=== PATIENT | female | born 1945 | race Caucasian/White ===

== ENCOUNTER → 2017-08-06 08:48 | Outpatient (CLI) | payer MEDICARE, SELFPAY ==
[2017-08-06 09:30] LABS: Absolute Lymphocyte Count 1.89 X10^3/ul (0.83-4.51); Absolute Neutrophil Count 4.4 X10^3/uL (2.0-7.7); Basophil# 0.02 X10^3/uL; Basophil% 0.3 % (0-1); Eosinophil# 0.28 X10^3/uL; Eosinophils% 3.8 % (0-5); Hematocrit 40.9 % (37-47); Hemoglobin 12.6 g/dl (12.0-15.0); Lymphocyte # 1.89 X10^3/ul (4.0); Lymphocyte % 25.8 % (19-41); Mean Corp Hgb Conc 30.8 g/gl (32-36); Mean Corpuscular Hgb 27.3 pg (27.0-32.0); Mean Corpuscular Volume 88.5 fL (81-99); Mean Platelet Vol. 9.7 fl (6.2-12.0); Monocyte# 0.78 X10^3/uL; Monocyte% 10.6 % (0-10); Neutrophil # 4.35 X10^3/uL (2.7-7.7); Neutrophil % 59.4 % (47-70); Platelet Count 186 K/mm3 (150-450); RBC Distribution Width CV 13.9 % (11.6-14.6); RBC Distribution Width SD 44.9 fl (35.1-43.9); Red Blood Count 4.62 M/mm3 (4.2-5.4); White Blood Count 7.3 K/mm3 (4.4-11.0)
[2017-08-06 09:33] LABS: POSITIVE COUNT NO; POSITIVE DIFFERENTIAL NO; POSITIVE MORPHOLOGY NO
[2017-08-06 09:43] LABS: Hemoglobin A1c 6.4 % (4.2-6.3)
[2017-08-06 09:55] LABS: AST(SGOT) 43 U/L (15-37); Alanine Aminotransfer ALT/SGPT 25 U/L (13-56); Albumin, Serum 3.7 g/dL (3.2-5.0); Alkaline Phosphatase 100 U/L (45-117); Anion Gap 9 (5-15); BUN 23 mg/dL (7-18); BUN/Creat Ratio 20.9 RATIO (10-20); Calcium,Total 8.8 mg/dL (8.5-10.1); Chloride 102 mmol/L (98-107); EST Glomerular Filtration Rate 52 mL/min (>60); Est Glom Filt Rate - Afr Amer 62 mL/min (>60); Globulin 3.8 g/dL (2.2-4.2); Glucose 117 mg/dL (74-106); Potassium 4.2 mmol/L (3.5-5.1); Protein, Total 7.5 g/dL (6.4-8.2); Sodium Level 138 mmol/L (136-145); Thyroid Stim Hormone (TSH) 2.51 uIU/mL (0.358-3.74)
== END ==
DX: I10 Essential (primary) hypertension (principal); E78.5 Hyperlipidemia, unspecified; E11.9 Type 2 diabetes mellitus without complications
CPT/HCPCS: 36415; 80053; 83036; 84443; 85025

== ENCOUNTER → 2017-11-20 16:48 | Outpatient (CLI) | payer MEDICARE, SELFPAY ==
[2017-11-20 17:47] LABS: Absolute Lymphocyte Count 2.59 X10^3/ul (0.83-4.51); Absolute Neutrophil Count 4.3 X10^3/uL (2.0-7.7); Basophil# 0.03 X10^3/uL; Basophil% 0.4 % (0-1); Eosinophil# 0.44 X10^3/uL; Eosinophils% 5.3 % (0-5); Hematocrit 39.7 % (37-47); Hemoglobin 12.6 g/dl (12.0-15.0); Lymphocyte # 2.59 X10^3/ul (4.0); Lymphocyte % 31.1 % (19-41); Mean Corp Hgb Conc 31.7 g/gl (32-36); Mean Corpuscular Hgb 28.1 pg (27.0-32.0); Mean Corpuscular Volume 88.4 fL (81-99); Mean Platelet Vol. 10.2 fl (6.2-12.0); Monocyte# 0.93 X10^3/uL; Monocyte% 11.2 % (0-10); Neutrophil # 4.33 X10^3/uL (2.7-7.7); Neutrophil % 51.8 % (47-70); Platelet Count 216 K/mm3 (150-450); RBC Distribution Width CV 13.7 % (11.6-14.6); RBC Distribution Width SD 43.7 fl (35.1-43.9); Red Blood Count 4.49 M/mm3 (4.2-5.4); White Blood Count 8.3 K/mm3 (4.4-11.0)
[2017-11-20 17:51] LABS: POSITIVE COUNT NO; POSITIVE DIFFERENTIAL NO; POSITIVE MORPHOLOGY NO
[2017-11-20 18:12] LABS: ALB/GLOB Ratio 0.9 RATIO (0.9-2.4); AST(SGOT) 45 U/L (15-37); Alanine Aminotransfer ALT/SGPT 25 U/L (13-56); Albumin, Serum 3.7 g/dL (3.2-5.0); Alkaline Phosphatase 93 U/L (45-117); Anion Gap 8 (5-15); BUN 25 mg/dL (7-18); BUN/Creat Ratio 20.5 RATIO (10-20); Calcium,Total 9.1 mg/dL (8.5-10.1); Chloride 105 mmol/L (98-107); Cholesterol 153 mg/dL (200); Creatinine, Serum 1.22 mg/dL (0.55-1.02); EST Glomerular Filtration Rate 46 mL/min (>60); Est Glom Filt Rate - Afr Amer 55 mL/min (>60); Globulin 3.9 g/dL (2.2-4.2); Glucose 100 mg/dL (74-106); High Density Lipoprotein 43 mg/dL; Potassium 4.2 mmol/L (3.5-5.1); Protein, Total 7.6 g/dL (6.4-8.2); Sodium Level 139 mmol/L (136-145); Thyroid Stim Hormone (TSH) 1.81 uIU/mL (0.358-3.74); Triglycerides 299 mg/dL; Very Low Density Lipoprotein 60 mg/dL (5-40)
[2017-11-21 08:48] LABS: Vitamin D,25 Hydroxy 33.2 ng/mL (29.95-100.01)
== END ==
PROVIDERS: Visit Provider Family Medicine Geriatric Medicine
DX: E11.9 Type 2 diabetes mellitus without complications (principal); E55.9 Vitamin D deficiency, unspecified; E78.4 Other hyperlipidemia; I10 Essential (primary) hypertension
CPT/HCPCS: 36415; 80053; 80061; 82306; 84443; 85025

== ENCOUNTER → 2017-12-05 10:49 | Outpatient (CLI) | payer MEDICARE, SELFPAY | PROVIDERS: Visit Provider Family Medicine Geriatric Medicine | DX: N39.0 Urinary tract infection, site not specified (principal) | CPT/HCPCS: 87077; 87086; 87088; 87186 ==

== ENCOUNTER → 2018-02-18 14:54 | Outpatient (CLI) | payer MEDICARE, SELFPAY ==
[2018-02-18 16:09] LABS: Absolute Lymphocyte Count 2.16 X10^3/ul (0.83-4.51); Absolute Neutrophil Count 4.6 X10^3/uL (2.0-7.7); Basophil# 0.03 X10^3/uL; Basophil% 0.4 % (0-1); Eosinophil# 0.31 X10^3/uL; Hematocrit 37.3 % (37-47); Hemoglobin 11.4 g/dl (12.0-15.0); Lymphocyte # 2.16 X10^3/ul (4.0); Mean Corp Hgb Conc 30.6 g/gl (32-36); Mean Corpuscular Hgb 27.1 pg (27.0-32.0); Mean Corpuscular Volume 88.8 fL (81-99); Mean Platelet Vol. 9.8 fl (6.2-12.0); Monocyte# 0.67 X10^3/uL; Monocyte% 8.7 % (0-10); Neutrophil # 4.55 X10^3/uL (2.7-7.7); Neutrophil % 58.9 % (47-70); Platelet Count 230 K/mm3 (150-450); RBC Distribution Width CV 13.4 % (11.6-14.6); RBC Distribution Width SD 43.1 fl (35.1-43.9); White Blood Count 7.7 K/mm3 (4.4-11.0)
[2018-02-18 16:39] LABS: ALB/GLOB Ratio 0.8 RATIO (0.9-2.4); AST(SGOT) 42 U/L (15-37); Alanine Aminotransfer ALT/SGPT 25 U/L (13-56); Albumin, Serum 3.4 g/dL (3.2-5.0); Alkaline Phosphatase 94 U/L (45-117); Anion Gap 9 (5-15); BUN 24 mg/dL (7-18); BUN/Creat Ratio 17.8 RATIO (10-20); Calcium,Total 9.2 mg/dL (8.5-10.1); Chloride 101 mmol/L (98-107); Cholesterol 145 mg/dL (200); Creatinine, Serum 1.35 mg/dL (0.55-1.02); EST Glomerular Filtration Rate 41 mL/min (>60); Est Glom Filt Rate - Afr Amer 49 mL/min (>60); Globulin 4.2 g/dL (2.2-4.2); Glucose 113 mg/dL (74-106); High Density Lipoprotein 39 mg/dL; Potassium 4.4 mmol/L (3.5-5.1); Protein, Total 7.6 g/dL (6.4-8.2); Sodium Level 139 mmol/L (136-145); Thyroid Stim Hormone (TSH) 1.87 uIU/mL (0.358-3.74); Triglycerides 327 mg/dL; Very Low Density Lipoprotein 65 mg/dL (5-40)
[2018-02-18 17:16] LABS: POSITIVE COUNT NO; POSITIVE DIFFERENTIAL NO; POSITIVE MORPHOLOGY NO
== END ==
PROVIDERS: Family Provider Family Medicine Geriatric Medicine; PCP Family Medicine Geriatric Medicine; Visit Provider Family Medicine Geriatric Medicine
DX: E11.9 Type 2 diabetes mellitus without complications (principal); E55.9 Vitamin D deficiency, unspecified; E78.4 Other hyperlipidemia; I10 Essential (primary) hypertension
CPT/HCPCS: 36415; 80053; 80061; 82306; 84443; 85025

== ENCOUNTER → 2018-05-14 10:46 | Outpatient (CLI) | payer MEDICARE, SELFPAY ==
[2018-05-14 12:42] LABS: Absolute Lymphocyte Count 1.77 X10^3/ul (0.83-4.51); Absolute Neutrophil Count 2.8 X10^3/uL (2.0-7.7); Basophil# 0.03 X10^3/uL; Basophil% 0.5 % (0-1); Eosinophil# 0.17 X10^3/uL; Eosinophils% 3.1 % (0-5); Hematocrit 37.2 % (37-47); Hemoglobin 11.7 g/dl (12.0-15.0); Lymphocyte # 1.77 X10^3/ul (4.0); Lymphocyte % 32.1 % (19-41); Mean Corp Hgb Conc 31.5 g/gl (32-36); Mean Corpuscular Hgb 27.7 pg (27.0-32.0); Mean Corpuscular Volume 87.9 fL (81-99); Mean Platelet Vol. 10.5 fl (6.2-12.0); Monocyte# 0.71 X10^3/uL; Monocyte% 12.9 % (0-10); Neutrophil # 2.82 X10^3/uL (2.7-7.7); Neutrophil % 51.2 % (47-70); Platelet Count 194 K/mm3 (150-450); RBC Distribution Width CV 13.7 % (11.6-14.6); RBC Distribution Width SD 43.2 fl (35.1-43.9); Red Blood Count 4.23 M/mm3 (4.2-5.4); White Blood Count 5.5 K/mm3 (4.4-11.0)
[2018-05-14 12:46] LABS: POSITIVE COUNT NO; POSITIVE DIFFERENTIAL NO; POSITIVE MORPHOLOGY NO
[2018-05-14 13:07] LABS: Vitamin D,25 Hydroxy 44.1 ng/mL (29.95-100.01)
[2018-05-14 13:12] LABS: AST(SGOT) 48 U/L (15-37); Alanine Aminotransfer ALT/SGPT 29 U/L (13-56); Albumin, Serum 3.6 g/dL (3.2-5.0); Alkaline Phosphatase 97 U/L (45-117); Anion Gap 11 (5-15); BUN 21 mg/dL (7-18); BUN/Creat Ratio 20.4 RATIO (10-20); Calcium,Total 8.7 mg/dL (8.5-10.1); Chloride 106 mmol/L (98-107); Cholesterol 164 mg/dL (200); Creatinine, Serum 1.03 mg/dL (0.55-1.02); EST Glomerular Filtration Rate 56 mL/min (>60); Est Glom Filt Rate - Afr Amer 67 mL/min (>60); Globulin 3.7 g/dL (2.2-4.2); Glucose 116 mg/dL (74-106); High Density Lipoprotein 44 mg/dL; Potassium 4.3 mmol/L (3.5-5.1); Protein, Total 7.3 g/dL (6.4-8.2); Sodium Level 141 mmol/L (136-145); Thyroid Stim Hormone (TSH) 1.84 uIU/mL (0.358-3.74); Triglycerides 321 mg/dL; Very Low Density Lipoprotein 64 mg/dL (5-40)
== END ==
PROVIDERS: Family Provider Family Medicine Geriatric Medicine; PCP Family Medicine Geriatric Medicine; Visit Provider Family Medicine Geriatric Medicine
DX: E11.9 Type 2 diabetes mellitus without complications (principal); E55.9 Vitamin D deficiency, unspecified; E78.49 Other hyperlipidemia; I10 Essential (primary) hypertension
CPT/HCPCS: 36415; 80053; 80061; 82306; 84443; 85025

== ENCOUNTER → 2018-06-25 12:13 | Outpatient (CLI) | payer MEDICARE, SELFPAY ==
--- NOTE | 2018-06-25 | LES_PTH ---
PATIENT: RAMIRO BHAKTA LOC: [facility] U#:[id number] AGE/SX: 79/F ROOM: RE06/25/[address]: Dr. Thomas Castro MD : 1945 BED: DIS: SPEC #: [id number] RECD: 06/25/18 14:41 STATUS: HUSSEIN RESusan #: [id number] DEMETRIA: 06/25/18 00:[address]: Thomas Castro Chi DEPT: SURGICAL PATHOLOGY RECD BY: Tejas Kim ENTERED: 06/25/18 14:42 SP TYPE: Lesion OTHR DR: Thomas Castro MD Tissues: A - Skin of buttock, NOS B - Skin of buttock, NOS Procedures: Surgery Specimen Level IV HEADER OPERATION: Not noted PRE-OP DIAGNOSIS: L98.9 TISSUE SUBMITTED: A - Left lateral buttock, B - Left medial buttock MICROSCOPIC DIAGNOSIS A. 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 See comment. B. Skin lesion of left medial buttocks, excision: Actinic keratosis with moderate atypia, completely excised. AM:anamika 06/26/18 COMMENT A. The lesion measures 11 mm in greatest dimension. MICROSCOPIC DESCRIPTION Slides are reviewed. GROSS DESCRIPTION A - Received in fixative is one container labeled with the patient's name and designated left lateral buttock. The specimen consists of a light bach shave biopsy of skin measuring 1.5 x 1.2 x 0.2 cm. The specimen is inked, serially sectioned and totally submitted in one cassette. B - Received in fixative is one container labeled with the patient's name and designated left medial buttock. The specimen consists of a light bach shave biopsy of skin measuring 0.6 x 0.3 x 0.2 cm. The specimen is inked, bisected and totally submitted in one cassette. / AM:anamika 06/25/18 TC:0 CPT: 19819
== END ==
PROVIDERS: Family Provider Family Medicine Geriatric Medicine; PCP Family Medicine Geriatric Medicine; Visit Provider Family Medicine Geriatric Medicine
DX: L98.9 Disorder of the skin and subcutaneous tissue, unspecified (principal)
CPT/HCPCS: 88305

== ENCOUNTER → 2018-08-12 12:09 | Outpatient (CLI) | payer MEDICARE, SELFPAY ==
[2018-08-12 13:23] LABS: Absolute Lymphocyte Count 2.55 X10^3/ul (0.83-4.51); Absolute Neutrophil Count 4.4 X10^3/uL (2.0-7.7); Basophil# 0.03 X10^3/uL; Basophil% 0.4 % (0-1); Eosinophil# 0.15 X10^3/uL; Eosinophils% 1.9 % (0-5); Hematocrit 37.8 % (37-47); Hemoglobin 11.8 g/dl (12.0-15.0); Lymphocyte # 2.55 X10^3/ul (4.0); Lymphocyte % 32.7 % (19-41); Mean Corp Hgb Conc 31.2 g/gl (32-36); Mean Corpuscular Hgb 27.6 pg (27.0-32.0); Mean Corpuscular Volume 88.5 fL (81-99); Mean Platelet Vol. 9.8 fl (6.2-12.0); Monocyte# 0.63 X10^3/uL; Monocyte% 8.1 % (0-10); Neutrophil # 4.41 X10^3/uL (2.7-7.7); Neutrophil % 56.6 % (47-70); POSITIVE COUNT NO; POSITIVE DIFFERENTIAL NO; POSITIVE MORPHOLOGY NO; Platelet Count 205 K/mm3 (150-450); RBC Distribution Width CV 13.7 % (11.6-14.6); RBC Distribution Width SD 44.3 fl (35.1-43.9); Red Blood Count 4.27 M/mm3 (4.2-5.4); White Blood Count 7.8 K/mm3 (4.4-11.0)
[2018-08-12 13:45] LABS: ALB/GLOB Ratio 0.9 RATIO (0.9-2.4); AST(SGOT) 42 U/L (15-37); Alanine Aminotransfer ALT/SGPT 24 U/L (13-56); Albumin, Serum 3.3 g/dL (3.2-5.0); Alkaline Phosphatase 99 U/L (45-117); Anion Gap 9 (5-15); BUN 22 mg/dL (7-18); BUN/Creat Ratio 19.3 RATIO (10-20); Calcium,Total 8.9 mg/dL (8.5-10.1); Chloride 105 mmol/L (98-107); Cholesterol 151 mg/dL (200); Creatinine, Serum 1.14 mg/dL (0.55-1.02); EST Glomerular Filtration Rate 49 mL/min (>60); Est Glom Filt Rate - Afr Amer 60 mL/min (>60); Globulin 3.7 g/dL (2.2-4.2); Glucose 119 mg/dL (74-106); High Density Lipoprotein 49 mg/dL; Potassium 4.4 mmol/L (3.5-5.1); Sodium Level 143 mmol/L (136-145); Thyroid Stim Hormone (TSH) 1.62 uIU/mL (0.358-3.74); Triglycerides 274 mg/dL; Very Low Density Lipoprotein 55 mg/dL (5-40)
[2018-08-12 14:21] LABS: Vitamin D,25 Hydroxy 53.3 ng/mL (29.95-100.01)
== END ==
PROVIDERS: Family Provider Family Medicine Geriatric Medicine; PCP Family Medicine Geriatric Medicine; Visit Provider Family Medicine Geriatric Medicine
DX: E11.9 Type 2 diabetes mellitus without complications (principal); E55.9 Vitamin D deficiency, unspecified; E78.49 Other hyperlipidemia; I10 Essential (primary) hypertension
CPT/HCPCS: 36415; 80053; 80061; 82306; 84443; 85025

== ENCOUNTER → 2018-11-23 09:01 | Outpatient (CLI) | payer MEDICARE, SELFPAY ==
[2018-11-23 12:40] LABS: Absolute Lymphocyte Count 2.21 X10^3/ul (0.83-4.51); Absolute Neutrophil Count 4.4 X10^3/uL (2.0-7.7); Basophil# 0.02 X10^3/uL; Basophil% 0.3 % (0-1); Eosinophil# 0.22 X10^3/uL; Eosinophils% 2.9 % (0-5); Hematocrit 37.6 % (37-47); Hemoglobin 11.8 g/dl (12.0-15.0); Lymphocyte # 2.21 X10^3/ul (4.0); Lymphocyte % 29.1 % (19-41); Mean Corp Hgb Conc 31.4 g/gl (32-36); Mean Corpuscular Hgb 27.4 pg (27.0-32.0); Mean Corpuscular Volume 87.2 fL (81-99); Mean Platelet Vol. 9.6 fl (6.2-12.0); Monocyte# 0.71 X10^3/uL; Monocyte% 9.4 % (0-10); Neutrophil # 4.41 X10^3/uL (2.7-7.7); Platelet Count 226 K/mm3 (150-450); RBC Distribution Width CV 13.8 % (11.6-14.6); RBC Distribution Width SD 44.1 fl (35.1-43.9); Red Blood Count 4.31 M/mm3 (4.2-5.4); White Blood Count 7.6 K/mm3 (4.4-11.0)
[2018-11-23 12:42] LABS: POSITIVE COUNT NO; POSITIVE DIFFERENTIAL NO; POSITIVE MORPHOLOGY NO
[2018-11-23 12:46] LABS: Vitamin D,25 Hydroxy 43.9 ng/mL (29.95-100.01)
[2018-11-23 12:53] LABS: ALB/GLOB Ratio 0.9 RATIO (0.9-2.4); AST(SGOT) 45 U/L (15-37); Alanine Aminotransfer ALT/SGPT 25 U/L (13-56); Albumin, Serum 3.4 g/dL (3.2-5.0); Alkaline Phosphatase 99 U/L (45-117); Anion Gap 6 (5-15); BUN 23 mg/dL (7-18); BUN/Creat Ratio 19.3 RATIO (10-20); Calcium,Total 9.4 mg/dL (8.5-10.1); Chloride 104 mmol/L (98-107); Cholesterol 152 mg/dL (200); Creatinine, Serum 1.19 mg/dL (0.55-1.02); EST Glomerular Filtration Rate 47 mL/min (>60); Est Glom Filt Rate - Afr Amer 57 mL/min (>60); Globulin 3.9 g/dL (2.2-4.2); Glucose 106 mg/dL (74-106); High Density Lipoprotein 45 mg/dL; Potassium 4.5 mmol/L (3.5-5.1); Protein, Total 7.3 g/dL (6.4-8.2); Sodium Level 139 mmol/L (136-145); Triglycerides 320 mg/dL; Very Low Density Lipoprotein 64 mg/dL (5-40)
--- NOTE | 2018-11-23 14:45 | RAD_ITS ---
STUDY: X-RAY - LUMBAR SPINE REASON FOR EXAM: Female, 73 years old. Pain and swelling TECHNIQUE: 3 view(s) of the lumbar spine were obtained. COMPARISON: None FINDINGS: Normal lumbar lordosis. There is no substantial scoliosis. There is a normal alignment of the vertebrae from L1 L4. There is a grade 1 spondylolisthesis at L4-5, and L5 and S1 align anatomically.. There is multilevel endplate spondylosis of the lumbar vertebrae. There is multi-level degenerative disc disease with multi-level disc space narrowing. There is no demonstrated fracture. There is atherosclerotic calcification of the abdominal aorta without a demonstrated aneurysm. RAD/Lumbar Spine 2 or 3 Views IMPRESSION: Degenerative changes of the spine, as detailed above. No demonstrated fracture, grade 1 spondylolisthesis at L4-5 Electronically Signed: Michel Gillette MD at 15:46 EDT , Service support ,
--- NOTE | 2018-11-23 15:03 | RAD_ITS ---
STUDY: X-RAY - CERVICAL SPINE REASON FOR EXAM: Female, 73 years old. Neck pain after a fall TECHNIQUE: 3 view(s) of the cervical spine were obtained. COMPARISON: None FINDINGS: Normal anterior atlantoaxial articulation. Normal odontoid process. There is straightening of the normal cervical lordosis. There is multi-level endplate spondylosis. There is multi-level degenerative disc disease with multilevel disc space narrowing. The soft tissue structures are unremarkable. RAD/Cerv Spine 2 or 3 Views IMPRESSION: Multilevel degenerative changes, no acute findings Electronically Signed: Michel Gillette MD at 15:47 EDT , Service support ,
== END ==
LOC: POLAB3 09:02 → RAD 14:43
PROVIDERS: Family Provider Family Medicine Geriatric Medicine; PCP Family Medicine Geriatric Medicine; Referring Provider Family Medicine Geriatric Medicine; Visit Provider Family Medicine Geriatric Medicine
DX: M54.5 Low back pain (principal); M54.2 Cervicalgia; E11.9 Type 2 diabetes mellitus without complications; E55.9 Vitamin D deficiency, unspecified; E78.5 Hyperlipidemia, unspecified; I10 Essential (primary) hypertension
CPT/HCPCS: 36415; 72040; 72100; 80053; 80061; 82306; 84443; 85025

== ENCOUNTER → 2018-12-31 16:40 | Outpatient (CLI) | payer MEDICARE, SELFPAY ==
[2018-12-31 17:02] LABS: Absolute Lymphocyte Count 1.78 X10^3/uL (0.83-4.51); Absolute Neutrophil Count 5.9 X10^3/uL (2.0-7.7); Basophil# 0.03 X10^3/uL; Basophil% 0.3 % (0-1); Eosinophil# 0.32 X10^3/uL; Eosinophils% 3.6 % (0-5); Hemoglobin 10.8 g/dL (12.0-15.0); Lymphocyte # 1.78 X10^3/ul (4.0); Lymphocyte % 19.8 % (19-41); Mean Corp Hgb Conc 31.8 g/dL (32-36); Mean Corpuscular Hgb 27.8 pg (27.0-32.0); Mean Corpuscular Volume 87.4 fL (81-99); Mean Platelet Vol. 9.9 fl (6.2-12.0); Monocyte# 0.87 X10^3/uL; Monocyte% 9.7 % (0-10); NRBC Flagged by Analyzer 0 % (0-5); Neutrophil # 5.94 X10^3/uL (2.7-7.7); Platelet Count 174 K/mm3 (150-450); RBC Distribution Width CV 13.4 % (11.6-14.6); Red Blood Count 3.89 M/mm3 (4.2-5.4)
[2018-12-31 17:21] LABS: Erythrocyte Sedimentation Rate 50 mm/hr (0-30)
[2018-12-31 17:45] LABS: Anion Gap 11 (5-15); BUN 34 mg/dL (7-18); BUN/Creat Ratio 17.3 RATIO (10-20); Calcium,Total 8.6 mg/dL (8.5-10.1); Chloride 106 mmol/L (98-107); Creatinine, Serum 1.97 mg/dL (0.55-1.02); EST Glomerular Filtration Rate 26 mL/min (>60); Est Glom Filt Rate - Afr Amer 32 mL/min (>60); Glucose 134 mg/dL (74-106); Potassium 4.1 mmol/L (3.5-5.1); Sodium Level 142 mmol/L (136-145); Uric Acid 11.1 mg/dL (2.6-6.0)
== END ==
PROVIDERS: Family Provider Family Medicine Geriatric Medicine; PCP Family Medicine Geriatric Medicine; Visit Provider Family Medicine Geriatric Medicine
DX: M10.9 Gout, unspecified (principal)
CPT/HCPCS: 36415; 80048; 84550; 85025; 85652; 86140

== ENCOUNTER → 2019-01-06 14:16 | Outpatient (CLI) | payer MEDICARE, SELFPAY ==
--- NOTE | 2019-01-06 14:19 | RAD_ITS ---
STUDY: X-RAY - LEFT HAND REASON FOR EXAM: Arthritis pain. TECHNIQUE: 3 view(s) of the hand. COMPARISON: None. FINDINGS: Normal radiocarpal articulation. Normal distal radioulnar joint. Normal visualized carpal bones. Normal carpal articulations Normal carpometacarpal articulation of the thumb. Normal second through fifth carpometacarpal joints. Normal metacarpi. Normal metacarpophalangeal joint of the thumb. Normal interphalangeal joint of the thumb. Normal proximal and distal phalanges of the thumb. There is mild joint space narrowing of the third metacarpophalangeal joint. There is joint space narrowing of the proximal and distal interphalangeal joints with small marginal osteophytes of the second and third distal interphalangeal joints. Normal phalanges of the second through fifth fingers. There is chondrocalcinosis of the triangular fibrocartilage and lunotriquetral ligament. 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 Chondrocalcinosis. Electronically Signed: Dawson Ivan MD at 15:33 EDT Tel , Service support ,
--- NOTE | 2019-01-06 14:19 | RAD_ITS ---
STUDY: X-RAY - RIGHT HAND REASON FOR EXAM: Arthritis pain. TECHNIQUE: 3 view(s) of the hand. COMPARISON: None. FINDINGS: Normal radiocarpal articulation. Normal distal radioulnar joint. Normal visualized carpal bones. Normal carpal articulations Normal carpometacarpal articulation of the thumb. Normal second through fifth carpometacarpal joints. Normal metacarpi. Normal metacarpophalangeal joint of the thumb. Normal interphalangeal joint of the thumb. Normal proximal and distal phalanges of the thumb. There is moderate joint space narrowing of the third metacarpophalangeal joint. There is joint space narrowing of the proximal and distal interphalangeal joints of the second through fifth fingers. Normal phalanges of the second through fifth fingers. There is chondrocalcinosis of the wrist. 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 Chondrocalcinosis. Electronically Signed: Dawson Ivan MD at 15:31 EDT Tel , Service support ,
== END ==
PROVIDERS: Family Provider Family Medicine Geriatric Medicine; PCP Family Medicine Geriatric Medicine; Referring Provider Family Medicine Geriatric Medicine; Visit Provider Family Medicine Geriatric Medicine
DX: M19.042 Primary osteoarthritis, left hand (principal); M19.041 Primary osteoarthritis, right hand; M11.242 Other chondrocalcinosis, left hand; M11.241 Other chondrocalcinosis, right hand
CPT/HCPCS: 73130

== ENCOUNTER → 2019-01-08 09:52 | Outpatient (CLI) | payer MEDICARE, SELFPAY ==
[2019-01-08 10:27] LABS: Anion Gap 4 (5-15); BUN 24 mg/dL (7-18); Chloride 104 mmol/L (98-107); Creatinine, Serum 1.33 mg/dL (0.55-1.02); EST Glomerular Filtration Rate 41 mL/min (>60); Est Glom Filt Rate - Afr Amer 50 mL/min (>60); Glucose 200 mg/dL (74-106); Potassium 4.3 mmol/L (3.5-5.1); Sodium Level 139 mmol/L (136-145)
== END ==
PROVIDERS: Family Provider Family Medicine Geriatric Medicine; PCP Family Medicine Geriatric Medicine; Visit Provider Family Medicine Geriatric Medicine
DX: N17.9 Acute kidney failure, unspecified (principal)
CPT/HCPCS: 36415; 80048

== ENCOUNTER → 2019-02-17 11:29 | Outpatient (CLI) | payer MEDICARE, SELFPAY ==
[2019-02-17 12:33] LABS: Erythrocyte Sedimentation Rate 20 mm/hr (0-30)
[2019-02-17 12:35] LABS: Absolute Lymphocyte Count 1.96 X10^3/uL (0.83-4.51); Absolute Neutrophil Count 3.9 X10^3/uL (2.0-7.7); Basophil# 0.05 X10^3/uL; Basophil% 0.7 % (0-1); Eosinophils% 4.3 % (0-5); Hematocrit 37.3 % (37-47); Hemoglobin 11.7 g/dL (12.0-15.0); Lymphocyte # 1.96 X10^3/ul (4.0); Mean Corp Hgb Conc 31.4 g/dL (32-36); Mean Corpuscular Volume 89.2 fL (81-99); Mean Platelet Vol. 10.5 fl (6.2-12.0); Monocyte# 0.72 X10^3/uL; Monocyte% 10.3 % (0-10); NRBC Flagged by Analyzer 0 % (0-5); Neutrophil # 3.94 X10^3/uL (2.7-7.7); Neutrophil % 56.4 % (47-70); Platelet Count 182 K/mm3 (150-450); RBC Distribution Width CV 15.4 % (11.6-14.6); RBC Distribution Width SD 49.9 fl (35.1-43.9); Red Blood Count 4.18 M/mm3 (4.2-5.4)
[2019-02-17 13:09] LABS: ALB/GLOB Ratio 0.9 RATIO (0.9-2.4); AST(SGOT) 42 U/L (15-37); Alanine Aminotransfer ALT/SGPT 21 U/L (13-56); Albumin, Serum 3.4 g/dL (3.2-5.0); Alkaline Phosphatase 94 U/L (45-117); Anion Gap 7 (5-15); BUN 26 mg/dL (7-18); BUN/Creat Ratio 23.4 RATIO (10-20); CRP < 2.90 mg/L (0.0-3.0); Calcium,Total 9.2 mg/dL (8.5-10.1); Chloride 104 mmol/L (98-107); Creatinine, Serum 1.11 mg/dL (0.55-1.02); EST Glomerular Filtration Rate 51 mL/min (>60); Est Glom Filt Rate - Afr Amer 62 mL/min (>60); Globulin 3.6 g/dL (2.2-4.2); Glucose 138 mg/dL (74-106); Potassium 4.6 mmol/L (3.5-5.1); Rheumatoid Factor < 10.0 IU/mL (<15); Sodium Level 140 mmol/L (136-145); Uric Acid 5.8 mg/dL (2.6-6.0)
[2019-02-17 13:52] LABS: Hepatitis B Surface Antibody Reactive; Hepatitis B Surface Antigen Non-Reactive (Nonreactive); Hepatitis C Antibody Non-Reactive (Nonreactive)
[2019-02-18 14:58] LABS: ANTINUCLEAR ANTIBODIES DIRECT Negative (Negative)
[2019-02-21 13:42] LABS: CCP IgG Antibodies 8 units (0-19); Hepatitis B Core AB IgM Negative (Negative)
== END ==
PROVIDERS: Family Provider Family Medicine Geriatric Medicine; PCP Family Medicine Geriatric Medicine; Referring Provider Internal Medicine Rheumatology; Visit Provider Internal Medicine Rheumatology
DX: M06.4 Inflammatory polyarthropathy (principal); M79.7 Fibromyalgia; M19.041 Primary osteoarthritis, right hand; M19.042 Primary osteoarthritis, left hand; M10.9 Gout, unspecified; M17.0 Bilateral primary osteoarthritis of knee; M47.897 Other spondylosis, lumbosacral region; Z96.653 Presence of artificial knee joint, bilateral
CPT/HCPCS: 36415; 80053; 84550; 85025; 85652; 86038; 86140; 86200; 86431; 86705; 86706; 86803; 87340

== ENCOUNTER → 2019-03-19 07:56 | Outpatient (CLI) | payer MEDICARE, SELFPAY ==
--- NOTE | 2019-03-19 07:59 | US_ITS ---
STUDY: ABDOMINAL ULTRASOUND - RIGHT UPPER QUADRANT REASON FOR VISIT: Female, 73 years old elevated LFTs TECHNIQUE: Ultrasound evaluation of the right upper quadrant was performed with real-time and static lopes-scale imaging. TECHNICAL QUALITY: Adequate. COMPARISON: None. FINDINGS: Liver: The liver measures 15.7 cm. There is normal echogenicity of the liver. The bile ducts are within normal limits. There is hepatic color flow. The direction of portal flow is hepatopetal. There is no demonstrated mass lesion. Gallbladder: Normal distended gallbladder. The gallbladder wall measures 1.4 mm. There is a negative sonographic Zamora's sign. There is no pericholecystic fluid. There is an echogenic mass within the gallbladder demonstrating internal blood flow measuring 3.2 x 1.8 x 1.7 cm. Common Bile Duct (C.B.D.): The common bile duct measures 9.1 mm. Pancreas: Normal size of the head, body and tail of the pancreas. There is normal echogenicity of the pancreas. There is no demonstrated pancreatic mass or cyst. Right Kidney: Normal size of the right kidney. The right kidney measures 11.3 x 5.2 x 5.1 cm. Normal renal cortex. The right cortex measures 1.4 cm. There are 2 right renal cysts measuring 1.4 x 1.3 x 1.2 cm and 1.6 x 1.5 x 1.4 cm respectively. There is no right hydronephrosis. US/Liver IMPRESSION: 1. Echogenic mass with internal vascularity within the gallbladder measuring 3.2 x 1.8 x 1.7 cm. Malignancy should be considered. 2. Dilatation of the CBD measuring up to 9.1 mm. 3. There are 2 right renal cysts measuring 1.4 x 1.3 x 1.2 cm and 1.6 x 1.5 x 1.4 cm respectively. Electronically Signed: Saul Salmon MD at 23:23 EDT , Service support ,
== END ==
PROVIDERS: Family Provider Family Medicine Geriatric Medicine; PCP Family Medicine Geriatric Medicine; Referring Provider Internal Medicine Rheumatology; Visit Provider Internal Medicine Rheumatology
DX: M06.4 Inflammatory polyarthropathy (principal); M79.7 Fibromyalgia; M19.041 Primary osteoarthritis, right hand; M10.9 Gout, unspecified; M17.0 Bilateral primary osteoarthritis of knee; M47.897 Other spondylosis, lumbosacral region; K21.9 Gastro-esophageal reflux disease without esophagitis; E11.9 Type 2 diabetes mellitus without complications; I10 Essential (primary) hypertension; E78.5 Hyperlipidemia, unspecified
CPT/HCPCS: 76705

== ENCOUNTER → 2019-04-05 10:27 | Outpatient (CLI) | payer MEDICARE, SELFPAY ==
[2019-04-05 12:07] LABS: Albumin, Serum 3.5 g/dL (3.2-5.0); BUN 16 mg/dL (7-18); BUN/Creat Ratio 15.1 RATIO (10-20); Creatinine, Serum 1.06 mg/dL (0.55-1.02); EST Glomerular Filtration Rate 54 mL/min (>60); Est Glom Filt Rate - Afr Amer 65 mL/min (>60); Globulin 3.5 g/dL (2.2-4.2); Glucose 179 mg/dL (74-106)
[2019-04-05 12:08] LABS: AST(SGOT) 74 U/L (15-37); Alanine Aminotransfer ALT/SGPT 53 U/L (13-56); Alkaline Phosphatase 115 U/L (45-117); Anion Gap 7 (5-15); Calcium,Total 9.4 mg/dL (8.5-10.1); Chloride 106 mmol/L (98-107); Potassium 4.1 mmol/L (3.5-5.1); Sodium Level 141 mmol/L (136-145)
== END ==
PROVIDERS: Family Provider Family Medicine Geriatric Medicine; PCP Family Medicine Geriatric Medicine; Referring Provider Internal Medicine Rheumatology; Visit Provider Internal Medicine Rheumatology
DX: M06.4 Inflammatory polyarthropathy (principal); M79.7 Fibromyalgia; M19.041 Primary osteoarthritis, right hand; M10.9 Gout, unspecified; M17.0 Bilateral primary osteoarthritis of knee; M47.897 Other spondylosis, lumbosacral region; K21.9 Gastro-esophageal reflux disease without esophagitis
CPT/HCPCS: 36415; 80053

== ENCOUNTER → 2019-05-24 16:03 | Outpatient (CLI) | payer MEDICARE, SELFPAY ==
[2019-05-24 17:32] LABS: Absolute Lymphocyte Count 2.27 X10^3/uL (0.83-4.51); Absolute Neutrophil Count 5.2 X10^3/uL (2.0-7.7); Basophil# 0.04 X10^3/uL; Basophil% 0.5 % (0-1); Eosinophil# 0.19 X10^3/uL; Eosinophils% 2.2 % (0-5); Hematocrit 40.1 % (37-47); Hemoglobin 12.2 g/dL (12.0-15.0); Lymphocyte # 2.27 X10^3/ul (4.0); Lymphocyte % 26.5 % (19-41); Mean Corp Hgb Conc 30.4 g/dL (32-36); Mean Corpuscular Hgb 27.5 pg (27.0-32.0); Mean Corpuscular Volume 90.3 fL (81-99); Mean Platelet Vol. 11.4 fl (6.2-12.0); Monocyte# 0.85 X10^3/uL; Monocyte% 9.9 % (0-10); NRBC Flagged by Analyzer 0 % (0-5); Neutrophil # 5.16 X10^3/uL (2.7-7.7); Neutrophil % 60.3 % (47-70); Platelet Count 214 K/mm3 (150-450); RBC Distribution Width CV 14.6 % (11.6-14.6); Red Blood Count 4.44 M/mm3 (4.2-5.4); White Blood Count 8.6 K/mm3 (4.4-11.0)
[2019-05-24 18:06] LABS: Vitamin D,25 Hydroxy 32.1 ng/mL (29.95-100.01)
[2019-05-24 18:13] LABS: AST(SGOT) 57 U/L (15-37); Alanine Aminotransfer ALT/SGPT 41 U/L (13-56); Albumin, Serum 3.4 g/dL (3.2-5.0); Alkaline Phosphatase 130 U/L (45-117); Anion Gap 7 (5-15); BUN 29 mg/dL (7-18); BUN/Creat Ratio 24.8 RATIO (10-20); Calcium,Total 8.3 mg/dL (8.5-10.1); Chloride 106 mmol/L (98-107); Cholesterol 157 mg/dL (200); Creatinine, Serum 1.17 mg/dL (0.55-1.02); EST Glomerular Filtration Rate 48 mL/min (>60); Est Glom Filt Rate - Afr Amer 58 mL/min (>60); Globulin 3.4 g/dL (2.2-4.2); Glucose 138 mg/dL (74-106); High Density Lipoprotein 43 mg/dL; Potassium 4.5 mmol/L (3.5-5.1); Protein, Total 6.8 g/dL (6.4-8.2); Sodium Level 139 mmol/L (136-145); Thyroid Stim Hormone (TSH) 1.49 uIU/mL (0.358-3.74); Triglycerides 428 mg/dL
== END ==
PROVIDERS: Family Provider Family Medicine Geriatric Medicine; PCP Family Medicine Geriatric Medicine; Visit Provider Family Medicine Geriatric Medicine
DX: E11.9 Type 2 diabetes mellitus without complications (principal); E55.9 Vitamin D deficiency, unspecified; E78.5 Hyperlipidemia, unspecified; I10 Essential (primary) hypertension
CPT/HCPCS: 36415; 80053; 80061; 82306; 84443; 85025

== ENCOUNTER 2019-06-22 07:44 | Emergency (ER) | payer MEDICARE, SELFPAY ==
[2019-06-22] VITALS (9 sets, daily range): BP systolic 89–108; BP diastolic 42–75; PULSE 77–88; RESP 18–30; TEMP 36.8–37.1; O2SAT 94–98; BMI 39.9
--- NOTE | 2019-06-22 08:00 | ED.VISSUMM ---
- ER Visit Summary Date of Service: 06/22/19 Chief Complaint: Chills, sweating and diarrhea History of Present Illness: The patient is a 73 F that is post open cholecystectomy and partial liver resection due to a mass at this time uncertain etiology at the [facility] last week. She was admitted on Friday and discharged on . She started having diarrhea in the last 3 to 4 days. Increased amounts greater than 10 episodes yesterday and today. No melena. No fever. No dysuria. Physical Examination: Older female initial blood pressure 97/42. Pulse ox 94% on room air no signs hypoxia. Clinically she looks dehydrated with dry mucous membranes. H EENT exam dry extremities. Neck nontender no lymphadenopathy. Lungs clear to auscultation bilaterally. Heart regular rhythm no murmur. Abdomen soft. Mildly tender she is a large well-healing open liver and cholecystectomy incision. Right upper quadrant across the abdomen. There is no signs of infection. The wound is closed. There is no cellulitis. No peritoneal signs. Patient is moving all 4 extremities. Calves are nontender without edema or cords. Neurologically she is awake alert with no focal motor deficits. Skin the patient was diaphoretic prior to arrival. Neurologically she is awake alert with no focal motor deficits. Test Results: X-ray portable 1 view shows elevated right hemidiaphragm otherwise unremarkable. No infiltrate. Read both by myself and radiologist. EKG shows normal sinus rhythm rate 81 with no acute signs of PA or ischemia. No dysrhythmia. CBC shows an elevated white count of 22,400. 94 segs no bands. Hemoglobin 9.5 she just had surgery with partial resection of her liver I suspect this was her recent hemoglobins when she left the [facility] after the surgery. I do not have any labs available for comparison as of yet. Chemistries unremarkable albumin BUN 24 and creatinine 1.58 consistent with dehydration and acute kidney injury. Liver enzymes are elevated again she had recent liver partial resection. Lactic acid is elevated at 4.0 consistent with septic shock. C. difficile is pending she has not had a bowel movement as of yet. Blood cultures and urine cultures are pending. UA is currently pending. CT abdomen pelvis with IV contrast contrast was also done prior to transfer the clinic which showed both a gallbladder fossa and subphrenic abscesses 4 x 6 cm and 4 x 7 cm. Which I will relate to the [facility] copy editor. Emergency Department Course and Treatment: Patient treated with a liter normal saline due to her hypotension. Screening labs will be obtained. C. difficile will be obtained due to her diarrhea. Patient was started on a second liter normal saline.. The first was almost finished and her blood pressure was in the 80s systolically. She will also be started on Zosyn IV and vancomycin po for septic shock and possible C. difficile.. Currently we do not have a source. My other concern is could this be secondary to C. difficile and dehydration. We do not have a stool sample as of yet. I spoke to [facility] transfer line and the surgical ICU attending. Patient has had 2 L of IV fluids. She will receive a third. She is responding to fluids and currently her blood pressure is in the mid 90s. Give the patient oral bank instead of IV in case this is C. difficile. Also they requested that obtain a CAT scan of the abdomen and pelvis due to recent surgery to rule out a possible abscess. That is been ordered. Treatment Plan: Continue IV fluids. Start IV antibiotics. I very spoken the [facility] she will be admitted there to the surgical intensive care unit. Disposition: Transfer to [facility] for admission postoperatively. Impression: Acute septic shock Acute subphrenic and gallbladder fossa postop abscess Acute hypotension Acute kidney injury Acute diarrhea rule out possible C. difficile Status post open Cholecystectomy and partial liver resection due to liver mass This note was generated with I-DIS[employer] dictation software. It may contain incorrect words, spelling, and punctuation that were not noted in review of the chart prior to signing ED Disposition - Plan for ED Patient: Disposition: [facility] - Main Referrals: Thomas Castro Chi, MD [Primary Care Provider] -
--- NOTE | 2019-06-22 08:10 | RAD_ITS ---
STUDY: X-RAY CHEST REASON FOR EXAM: Female, 73 years old. OPEN ARCADIO 8 DAYS AGO, N/V, WEAKNESS, DIZZINESS, WATERY STOOLS, DIAPHORESIS SINCE FRIDAY TECHNIQUE: Single AP portable view of the chest. COMPARISON: None. FINDINGS: The lungs are clear and expanded. Elevated right hemidiaphragm. Normal size heart. Normal mediastinum and grupo. Normal visualized pulmonary arteries. Normal visualized aortic arch and descending thoracic aorta. Normal visualized thoracic spine. Normal visualized ribs, clavicles, and shoulders. There is no demonstrated abnormality of the visualized soft tissue structures of the upper abdomen. RAD/Chest 1 View (Portable) IMPRESSION: No active disease. Electronically Signed: Myles Barboza MD at 8:28 EST Tel , Service support ,
[2019-06-22 08:19] LABS: Absolute Lymphocyte Count 0.69 X10^3/uL (0.83-4.51); Absolute Neutrophil Count 21.2 X10^3/uL (2.0-7.7); Basophil# 0.07 X10^3/uL; Basophil% 0.3 % (0-1); Eosinophil# 0.02 X10^3/uL; Eosinophils% 0.1 % (0-5); Hemoglobin 9.5 g/dL (12.0-15.0); Lymphocyte # 0.69 X10^3/ul (4.0); Lymphocyte % 3.1 % (19-41); Mean Corp Hgb Conc 31.7 g/dL (32-36); Mean Corpuscular Volume 88.5 fL (81-99); Mean Platelet Vol. 10.4 fl (6.2-12.0); Monocyte% 0.4 % (0-10); NRBC Flagged by Analyzer 0 % (0-5); Neutrophil % 94.8 % (47-70); POSITIVE DIFFERENTIAL YES; Platelet Count 237 K/mm3 (150-450); RBC Distribution Width CV 15.9 % (11.6-14.6); RBC Distribution Width SD 51.8 fl (35.1-43.9); Red Blood Count 3.39 M/mm3 (4.2-5.4); White Blood Count 22.4 K/mm3 (4.4-11.0)
[2019-06-22 08:22] LABS: Differential Indicated SCAN CRITERIA MET
[2019-06-22] MEDS: Ondansetron 4 MG/2 ML Vial IV (08:25)
[2019-06-22] MEDS: 0.9% Normal Saline 1,000 ML 1000 ML IV (08:25)
[2019-06-22 08:35] LABS: AST(SGOT) 199 U/L (15-37); Alanine Aminotransfer ALT/SGPT 142 U/L (13-56); Albumin, Serum 1.8 g/dL (3.2-5.0); Alkaline Phosphatase 454 U/L (45-117); Anion Gap 11 (5-15); BUN 24 mg/dL (7-18); BUN/Creat Ratio 15.2 RATIO (10-20); Bilirubin, Direct 0.67 mg/dL (0.00-0.30); Calcium,Total 8.4 mg/dL (8.5-10.1); Chloride 99 mmol/L (98-107); Creatinine, Serum 1.58 mg/dL (0.55-1.02); EST Glomerular Filtration Rate 34 mL/min (>60); Est Glom Filt Rate - Afr Amer 41 mL/min (>60); Estimated Creatinine Clearance 26.57 ml/min; Globulin 4.2 g/dL (2.2-4.2); Glucose 133 mg/dL (74-106); Potassium 3.8 mmol/L (3.5-5.1); Sodium Level 133 mmol/L (136-145)
[2019-06-22 08:45] LABS: Differential Comment SCANNED; Red Cell Morphology NORM C+C NORMAL (NORM C&C)
--- NOTE | 2019-06-22 08:48 | ED.RN ---
lactic of 4.0. dr beebe notified at this time.
--- NOTE | 2019-06-22 08:57 | EKG12_ITS ---
Test Reason : Blood Pressure : / mmHG Vent. Rate : 081 BPM Atrial Rate : 081 BPM P-R Int : 158 ms QRS Dur : 076 ms QT Int : 392 ms P-R-T Axes : 040 035 045 degrees QTc Int : 455 ms Normal sinus rhythm Normal ECG Confirmed by RADHA BANKS ([id number]), telegraph editor TOM MEJIA ([id number]) on 06/24/2019 10:20:02 AM Referred By: GRACIELA Confirmed By:RADHA BANKS
--- NOTE | 2019-06-22 08:59 | NURSING ---
NO OLD EKGS
--- NOTE | 2019-06-22 09:09 | NURSING ---
CALLED [facility], TALKED TO ANTOLIN IN TRANSFER LINE FAXED FACESHEET
[2019-06-22] MEDS: 0.9% Normal Saline 1,000 ML 999 ML IV ×2 (09:30→10:31)
--- NOTE | 2019-06-22 09:36 | NURSING ---
PATIENT ACCEPTED AND WAITING ON ROOM
[2019-06-22 09:49] LABS: Color, Urine Yellow (Yellow); Glucose, Dipstick Normal (Normal); Ketone-Dipstick 5 mg/dl (Negative); Leukocyte Esterase-Dipstick 25 /ul (Negative); Nitrite-Dipstick Negative (Negative); Occult Blood-Urine Negative /ul (Negative); Protein-Dipstick 30 mg/dl (Negative); Urine Bilirubin Dipstick 1 mg/dL (Negative); Urine Clarity Sl. Cloudy (Clear); Urine Urobilinogen 1 mg/dl (Normal)
--- NOTE | 2019-06-22 09:57 | CT_ITS ---
We are attempting to reach an attending provider to discuss findings. An addendum with communication details will be sent when the communication is complete. STUDY: CT ABDOMEN AND PELVIS WITH CONTRAST REASON FOR EXAM: Female, 73 years old. OPEN ARCADIO and amp; PARTIAL LIVER RESECTION 8 DAYS AGO, WEAKNESS, DIZZINESS, DIARRHEA SINCE SURG -- HX-DIAB,HTN,STAGE 3 CKD RADIATION DOSAGE (If Supplied By Facility): CTDIvol = ( 17.03 ) mGy, DLP = ( 1246.06 ) mGycm TECHNIQUE: Transaxial images were obtained from the dome of the diaphragm to the symphysis pubis without oral contrast. IV 100mL Isovue-300 was administered. Sagittal and coronal images were reconstructed. Individualized dose optimization techniques were used for this CT. COMPARISON: None. FINDINGS: Some right lower lobe atelectasis. The visualized portions of the heart are within normal limits. Some reactive edema of the anterior segment the right lobe of the liver. The patient is status post cholecystectomy. In the gallbladder fossa there is a 4 x 6 cm collection of fluid and gas which extends superiorly along the anterior margin the right lobe of the liver and into the subphrenic space where there is a 4 x 7 cm fluid collection with an air-fluid level all consistent with abscess. Normal spleen. Normal pancreas. Normal bilateral adrenal glands. Nonrotated right kidney which is normal variant. Normal left kidney. Normal visualized stomach. Normal small intestine. Normal colon. The appendix is visualized and appears normal. There is diffuse atherosclerotic calcification of the abdominal aorta, without a demonstrated aneurysm. Normal inferior vena cava. Normal retroperitoneum. Singer catheter within the bladder. Normal abdominal wall. There are diffuse degenerative changes of the visualized lumbar spine. CT/Abdomen/Pelvis W IV Cont ONLY IMPRESSION: Status post recent cholecystectomy with a 4 x 6 cm abscess in the gallbladder fossa which continues superiorly and is contiguous with a 4 x 7 cm right subphrenic abscess. Electronically Signed: Myles Barboza MD at 11:51 EST Tel , Service support ,
[2019-06-22 09:59] LABS: Amorphous Sediment 1+; Bacteria RARE /hpf (None Seen); Mucous, Urine RARE /hpf (<or=2+); Red Blood Cells-Urine 0 SEEN /hpf (0-5); Squamous Epithelial Cells - UA 5-10 SEEN /hpf (5-10); White Blood Cells 0-5 SEEN /hpf (0-5)
--- NOTE | 2019-06-22 11:45 | NURSING ---
[facility] GROUND UNIT 1 HR AWAY [facility] MAIN G52 BED 4 NURSE TO NURSE [phone]
[2019-06-22] MEDS: Vancomycin HCl 250 MG Capsule PO (11:53)
[2019-06-22] MEDS: fentaNYL 100 MCG/2 ML Ampul 25 MCG IV (12:11)
[2019-06-22 12:32] LABS: Reflex Lactate? Y
[2019-06-22 13:26] LABS: Lactic Acid 1.6 mmol/L (0.4-1.9)
--- NOTE | 2019-06-22 21:12 | ED.RN ---
BLOOD CULTURE RESULTS FAXED TO [facility]
== END 2019-06-22 13:05 | disposition short-term general hospital (02) ==
PROVIDERS: Emergency Provider Emergency Medicine; PCP Family Medicine Geriatric Medicine
DX: A41.9 Sepsis, unspecified organism (principal); R65.21 Severe sepsis with septic shock; K68.11 Postprocedural retroperitoneal abscess; T81.43XA Infection following a procedure, organ and space surgical site, initial encounter; N17.9 Acute kidney failure, unspecified; E11.9 Type 2 diabetes mellitus without complications; I10 Essential (primary) hypertension; Z79.899 Other long term (current) drug therapy; Z90.49 Acquired absence of other specified parts of digestive tract
CPT/HCPCS: 71045; 74177; 80048; 80076; 81001; 83605; 85025; 87040; 87077; 87086; 87186; 93005; 96361; 96365; 96375; 99285; J7030; J7040; Q9967; A4216; J2405

== ENCOUNTER 2019-08-07 14:59 | Emergency (ER) | payer MEDICARE, SELFPAY ==
[2019-06-22 09:45] VITALS: BMI 39.9
[2019-08-07 15:02] VITALS: BP 163/79; PULSE 82; RESP 17; TEMP 36.6; O2SAT 95; BMI 37.2
--- NOTE | 2019-08-07 16:00 | ED.DCSUM_ITS ---
History of Present Illness Informant: Patient Onset: Today Context: Sudden Onset Timing: Continuous Quality: abdominal drain Location: RUQ Current Severity: Severe Maximum Severity: Severe Worsened by: nothing Relieved by: nothing Associated Symptoms: denies Narrative: 74-year-old female presents because her abdominal wall drain is not functioning properly. Her visiting nurse came today was unable to remove the tube so that she could flush it and sent her to the emergency department. She has not having pain or vomiting it was replaced yesterday at [facility]. Prior similar symptoms: Yes Recent Illness/Hospitalization: Yes <Zach Delacruz - Last Filed: 08/07/19 16:02> <Dave Montoya - Last Filed: 08/07/19 21:15> Chief Complaint: Wound Check Past Medical History Prior records reviewed: Yes Past Medical History: - - Hypertension, hyperlipidemia, type 2 diabetes Surgical History: cholecystectomy Lives: Alone Smoking Status: Former smoker Alcohol: None Drugs: None <Zach Delacruz - Last Filed: 08/07/19 16:02> <Dave Montoya - Last Filed: 08/07/19 21:15> - Allergies and Home Meds Allergies/Adverse Reactions: Allergies codeine Allergy (Verified 06/22/19 07:51) Rash levofloxacin Allergy (Verified 08/07/19 15:02) Unknown mold Allergy (Verified 08/07/19 15:02) cough, congestion rofecoxib [From Vioxx] Allergy (Verified 06/22/19 07:52) Rash Primary Care Physician: Thomas Castro Chi, MD [Primary Care Provider] - Review of Systems All systems negative except as indicated General: Denies: Chills, Fever Eyes: Denies: Visual changes - bilaterally, Blurred Vision - bilaterally ENT: Denies: Rhinorrhea, Sore throat Cardiovascular: Denies: Chest pain, Palpitations Respiratory: Denies: Dyspnea, Cough, Sputum Gastrointestinal: Denies: Abdominal pain, Nausea, Vomiting, Diarrhea Genitourinary: Denies: Dysuria, Hematuria, Frequency Musculoskeletal: Denies: Myalgias, Arthralgias, Swelling, Extremity Pain Skin: Denies: Rash, Abscess, Abrasions, Wounds Neurological: Denies: Headache, Weakness, Parasthesia <Zach Delacruz - Last Filed: 08/07/19 16:02> Physical Exam Vital Signs/Narrative: Vital Signs Temp Pulse Resp BP Pulse Ox 08/07/19 15:02 97.9 F 82 17 163/79 H 95 Inital Vital Signs reviewed: Yes General: Well nourished, Well developed, No Acute Distress Head: Normocephalic, Atraumatic Eyes: Perrl, EOMI ENT: Moist mucous membranes Neck: Supple, Nontender Cardiovascular: Regular rate, Regular rhythm, No murmurs Respiratory: No distress, CTA bilaterally, Chest nontender Abdomen: Soft, Nontender, Nondistended, Normal bowel sounds, No masses, - - Patient has a abdominal drain in place. No surrounding signs of infection Back: Nontender, Normal Inspection Extremities: Nontender, No edema Neurological: Alert, Oriented x3 Psychological: Normal affect, Normal Mood <Zach Delacruz - Last Filed: 08/07/19 16:02> Diagnostic/Tx/Re-eval - Medical Decision Making Patient's drain is in place. No sign of infection is noted. I used a hemostat to remove the drain tube and we were able to place a three-way stopcock so that the patient will be able to not have to remove the tube for further flushes her dressing was changed it appears to be functioning appropriately on multiple repeat checks and she was discharged <Zach Delacruz - Last Filed: 08/07/19 16:02> - Medical Decision Making Patient was seen with me. I did a [id number] examination with the patient. Patient presents because her drain tube is not functioning. The home health nurse was unable to remove the bulb from the drain tube. She then referred the patient to the emergency department. Patient denies any pain. Patient denies any fevers or chills. Patient denies any nausea or vomiting. Vital signs are stable. Patient is afebrile. Patient is in no acute distress. Skin is warm and dry. There is no erythema. Abdomen is soft. Bowel sounds are normal. There is no tenderness. There is a drain tube noted in the right upper quadrant. There is no surrounding erythema. There is no discharge or drainage. The bulb suction was able to be removed and a three-way stopcock was placed. Patient was instructed to follow-up with her surgeon as scheduled. Patient understood and was agreeable with the plan. All questions were answered. <Dave Montoya - Last Filed: 08/07/19 21:15> ED Disposition <Zach Delacruz - Last Filed: 08/07/19 16:02> <Dave Montoya - Last Filed: 08/07/19 21:15> - Plan for ED Patient: Disposition: Home or Assisted Living Diagnosis: VIRGIL drain, broken Instructions: POST OP WOUND CHECK, General Referrals: Thomas Castro Chi, MD [Primary Care Provider] -
== END 2019-08-07 16:28 | disposition home or self-care (01) ==
PROVIDERS: Emergency Provider Physician Assistant Medical; PCP Family Medicine Geriatric Medicine
DX: Z48.03 Encounter for change or removal of drains (principal); Z87.891 Personal history of nicotine dependence
CPT/HCPCS: 99282; A4216

== ENCOUNTER → 2019-11-02 14:33 | Outpatient (CLI) | payer MEDICARE, SELFPAY ==
--- NOTE | 2019-11-02 14:35 | RAD_ITS ---
STUDY: X-RAY - CERVICAL SPINE REASON FOR EXAM: Female, 74 years old. Pain for 5 months TECHNIQUE: 3 view(s) of the cervical spine were obtained. COMPARISON: None FINDINGS: There are degenerative changes of the anterior atlantoaxial articulation. Normal odontoid process. There is straightening of the normal cervical lordosis. Marked degree of disc space narrowing and spondylosis at the C5-C6 level. Normal disc space heights. Normal visualized intervertebral neuroforamina. The soft tissue structures are unremarkable. RAD/Cerv Spine 2 or 3 Views IMPRESSION: Straightening of the normal cervical lordosis. Marked degree of disc space narrowing and spondylosis at the C5-C6 level. Electronically Signed: Carmelo Steen, at 8:44 EDT , Service support ,
--- NOTE | 2019-11-02 14:35 | RAD_ITS ---
STUDY: X-RAY - LEFT SHOULDER REASON FOR EXAM: Female, 74 years old. Pain for 5 months TECHNIQUE: 4 view(s) of the shoulder. COMPARISON: None. FINDINGS: There is moderate degenerative arthrosis of the glenohumeral articulation. There is hypertrophic osteoarthrosis of the acromioclavicular joint with inferior osseous spur formation. Normal acromion. Degenerative spur is seen along the inferior medial aspect of the humeral head. The soft tissue structures are unremarkable. Normal visualized pulmonary apex. RAD/Shoulder min 2 Views IMPRESSION: Degenerative changes of the shoulder joint as well as the acromioclavicular joint. Electronically Signed: Carmelo Steen, at 8:46 EDT , Service support ,
== END ==
PROVIDERS: PCP Family Medicine Geriatric Medicine; Referring Provider Family Medicine Geriatric Medicine; Visit Provider Family Medicine Geriatric Medicine
DX: M25.519 Pain in unspecified shoulder (principal); M54.30 Sciatica, unspecified side
CPT/HCPCS: 72040; 73030

== ENCOUNTER → 2019-11-18 13:31 | Outpatient (CLI) | payer MEDICARE, SELFPAY ==
[2019-11-18 14:12] LABS: Absolute Lymphocyte Count 1.93 X10^3/uL (0.83-4.51); Basophil# 0.04 X10^3/uL; Basophil% 0.5 % (0-1); Eosinophil# 0.16 X10^3/uL; Eosinophils% 2.1 % (0-5); Hematocrit 37.9 % (37-47); Hemoglobin 11.6 g/dL (12.0-15.0); Lymphocyte # 1.93 X10^3/ul (4.0); Lymphocyte % 24.8 % (19-41); Mean Corp Hgb Conc 30.6 g/dL (32-36); Mean Corpuscular Volume 91.3 fL (81-99); Mean Platelet Vol. 10.1 fl (6.2-12.0); Monocyte# 0.66 X10^3/uL; Monocyte% 8.5 % (0-10); NRBC Flagged by Analyzer 0 % (0-5); Neutrophil # 4.95 X10^3/uL (2.7-7.7); Neutrophil % 63.6 % (47-70); Platelet Count 197 K/mm3 (150-450); RBC Distribution Width CV 16.6 % (11.6-14.6); RBC Distribution Width SD 55.5 fl (35.1-43.9); Red Blood Count 4.15 M/mm3 (4.2-5.4); White Blood Count 7.8 K/mm3 (4.4-11.0)
[2019-11-18 14:27] LABS: Vitamin D,25 Hydroxy 49.2 ng/mL
[2019-11-18 14:34] LABS: Hemoglobin A1c 7.1 % (3.8-5.6)
[2019-11-18 16:15] LABS: AST(SGOT) 47 U/L (15-37); Alanine Aminotransfer ALT/SGPT 31 U/L (13-56); Albumin, Serum 3.4 g/dL (3.2-5.0); Alkaline Phosphatase 143 U/L (45-117); Anion Gap 7 (5-15); BUN 24 mg/dL (7-18); BUN/Creat Ratio 21.2 RATIO (10-20); Calcium,Total 8.9 mg/dL (8.5-10.1); Chloride 107 mmol/L (98-107); Cholesterol 154 mg/dL (200); Creatinine, Serum 1.13 mg/dL (0.55-1.02); EST Glomerular Filtration Rate 50 mL/min (>60); Est Glom Filt Rate - Afr Amer 60 mL/min (>60); Globulin 3.4 g/dL (2.2-4.2); Glucose 145 mg/dL (74-106); High Density Lipoprotein 51 mg/dL; Potassium 4.4 mmol/L (3.5-5.1); Protein, Total 6.8 g/dL (6.4-8.2); Sodium Level 139 mmol/L (136-145); Thyroid Stim Hormone (TSH) 1.45 uIU/mL (0.358-3.74); Triglycerides 329 mg/dL; Uric Acid 4.9 mg/dL (2.6-6.0); Very Low Density Lipoprotein 66 mg/dL (5-40)
[2019-11-21 03:06] LABS: Red Blood Cell Count Test/G6PD 4.28 x10E6/uL (3.77-5.28)
[2019-11-21 11:37] LABS: G6PD Quant Test 293 (146-376)
== END ==
PROVIDERS: PCP Family Medicine Geriatric Medicine; Referring Provider Internal Medicine Rheumatology; Visit Provider Internal Medicine Rheumatology
DX: M06.4 Inflammatory polyarthropathy (principal); M79.7 Fibromyalgia; M19.041 Primary osteoarthritis, right hand; M10.9 Gout, unspecified; M17.0 Bilateral primary osteoarthritis of knee; M47.897 Other spondylosis, lumbosacral region; K21.9 Gastro-esophageal reflux disease without esophagitis; E11.9 Type 2 diabetes mellitus without complications; I10 Essential (primary) hypertension; E78.5 Hyperlipidemia, unspecified; H18.453 Nodular corneal degeneration, bilateral; E55.9 Vitamin D deficiency, unspecified
CPT/HCPCS: 36415; 80053; 80061; 82306; 82955; 83036; 84443; 84550; 85025

== ENCOUNTER 2020-01-11 15:30 | Outpatient (RCR) | payer MEDICARE, SELFPAY ==
--- NOTE | 2019-12-15 12:46 | HP.PTEVAL_ITS ---
Patient's Visit Information RAMIRO BHAKTA is a 74 year old F referred to Physical Therapy by Dr. Felisa Brand MD with a diagnosis of NECK PAIN AND LEFT SIDE SCIATICA. Date of Evaluation: 12/14/19 Physical Therapist: Prakash Ruiz, PT, Cert MDT, OCS - Visit Plan Frequency: 2x /Week Duration: 4 Weeks Plan: PT INTERVENTIONS CERVICAL/POSTURAL EX'S,BUE GRADED STRENGTHENING,GRADED DLS,LE STRENGTHENING,FLEXABLITY - Subjective This 74 y/o female presents to physical therapy with neck pain and lumbar pain with sciatica. Patient has had neck and lumbar pain affect left side~ year . Symptoms worse past several months. Patient does have h/o lumbar surgery 15 YEARS ago. Patient location cervical pain symmtrical to occiput and occassionally left UE . Agrraveting factors turning cervical spine to left,lifting. Alleviating factors MEDS. Denies COX /Tinnitus /nausea/dizziness. Pain affects sleeping. Pain located in left buttuck -lateral lower leg. Aggraveting factors walking,unable to stand ,lifting.Patient has to use FWW. Alleviating rest in bed.Coughing/sneezing-. Bowel/bladder -. Seen Dr evelyn MEDS. Patient had x-rays cervical showed severe DDD,and lumbar DDD. Patient was recently hospitalized had surgery tumor gallbadder thus choley and removed 1/2 liver and had drain ,due to patient was septic. Patient ICU 5 day became weaker needed to use FWW. Patient has multiple comorbities -Salzmans degeneration,fibromayalgia,TKR bilateral,polyarthropathy inflammation.poor vision. Patient pain in cervical and lumbar pain affects function ,needs FWW with gait and ADL'S. SOCIAL : . VOCATION: retired - Pain Bilateral Neck Pain Intensity (Out of 10): 4 Pain Intensity Range: 10 Bilateral Back Pain Intensity (Out of 10): 7 Pain Intensity Range: 10 Left Lower Extremity Pain Intensity (Out of 10): 7 Pain Intensity Range: 10 - Objective POSTURE: mOD foward posture trunk flexed ,hips knees flexed. PALPTION: tender UT ,levator,L-S. NEURO: denies parthesia /tingling,reflexes C5-6-7 1/3,L3-4,L5-S1. GAIT: ambulates with fww mild foward posture slow adrian with hips/knees flexed. BALANCE: fair + with fww. LUMBAR ROM: flexion mod loss,extension sever loss,side glides mod loss. FLEXABLITY: MOD tightness hamstrings. MMT: quads/hams 4-/5,hip flexion 3+/5 L ,R 4-/5,hip abd 3+/5 ankle 4/5. CERVICAL ROM: flexion min loss,rotation/lateral flexion mod loss pain right side ,extension mod. MMT: grossly 4-/5 - Special Tests C/S Radiculapathy - Left Upper limb tension test: Negative C/S Radiculapathy - Right Upper limb tension test: Negative C/S Radiculapathy - Left Spurlings: Positive C/S Radiculapathy - Right Spurlings: Negative C/S Radiculapathy - Left Cervical distraction: Negative C/S Radiculapathy - Right Cervical distraction: Negative Sharp Darin: Negative Vertebral Artery Test: Negative Alar Ligament Test: Negative L/S Slump test left side: Negative L/S Slump test right side: Negative L/S Left Straight Leg Raise: Negative L/S Right Straight Leg Raise: Negative - Goals Goal 1:: Patient to be I with HEP. Goal Time Frame: 4-6 Weeks Goal 2:: Patient to decrease cervical and left arm symptoms along with left back and leg pain by 40% or > to improve function Goal Time Frame: 4-6 Weeks Goal 3:: Patient to improve cervical rom and lumbar ROM for function of recovery. Goal Time Frame: 4-6 Weeks Goal 4:: Patient increase strength BLE by 1/2 grade to improve gait Goal Time Frame: 4-6 Weeks Goal 5:: Patient to improve back owestry score by 5 points or > to improve QOL. Goal Time Frame: 4-6 Weeks - Rehabilitation Potential Physical Therapy Diagnosis: This patient has multiple comorbities infleunce condition as well as left arm and cervicsl pain along with left LUMBAR with radicular symptoms in leg with weakness, decrease cerical and lumbar ROM ,gait impairments thus benifit from skilled PT Rehabilitation Potential: Good - Anticipated Interventions Patient/Client Instruction: Educate patient on: Condition, Plan of Care For the Purpose of:: To decrease pain, To increase ROM, To improve muscle performance and motor function, To increase tolerance to activity/condition/position, To improve performance and independence with ADL's, To improve ability of physical actions for home/community/work/leisure, To improve gait and locomotor functions, To improve health of tissue, To decrease soft tissue restriction, To increase flexibility/ROM, To improve endurance, To improve balance, To improve safety with gait Therapeutic Exercise to Include: Strength training, Endurance training, Postural training, Flexibilty training, Dynamic Lumbar Stabilization For the Purpose of:: To decrease pain, To increase ROM, To improve muscle performance and motor function, To improve ability to perform ADL's, To increase tolerance to activity/condition/position, To improve ability of physical actions for home/community/work/leisure, To improve gait and locomotor functions, To improve health of tissue, To decrease soft tissue restriction, To increase flexibility/ROM, To improve balance, To improve safety with gait, To improve ability to perform tasks related to life management TENS: Yes IF ES: Yes Cryotherapy (ice pack, ice massage): Yes Thermo therapy (hot pack): Yes Ultrasound (thermal/non thermal): Yes For the Purpose of:: To decrease pain, To increase ROM, To improve nutrient delivery to tissue, To increase oxygenation perfusion, To improve health of tissue, To decrease soft tissue restriction Thank you for the opportunity to evaluate your patient. For Medicare and Medicare HMO plans, please review the plan of care and approve it. It will need to be FAXED BACK to us at [phone] for Medicare purposes. For Medicare only, by signing this I certify the plan of care. Please let me know if there are questions or concerns regarding this plan of care. Physician Signature: Date:
--- NOTE | 2020-05-24 13:18 | HP.PTDCSUM ---
It has been my pleasure to treat RAMIRO BHAKTA referred by Dr. Felisa Brand MD, with the diagnosis of NECK PAIN AND LEFT SIDE SCIATICA for a total of 9 visit(s). Discharge Date: Please see the following information for a summary of their discharge status. Subjective: Patient started to take the medication Bilateral Neck Pain Intensity (Out of 10): 0 Bilateral Back Pain Intensity (Out of 10): 2 Left Lower Extremity Pain Intensity (Out of 10): 2 % Improvement: 40 Objective/Function: POSTURE:mild foward posture. GAIT: reciprocal pattern mild foward posture. CERVICAL ROM: flexion min loss,rotation/lateral flexion min/mod. LUMBAR ROM : flexion mod loss ,extension severe loss,. MMT: quads/hams 4/5,hip flexion 4-/5,ankle 4/5. MMT: 4-/5 grossly ,shoulder 3+/5 Goal 1:: Patient to be I with HEP. Goal 2:: Patient to decrease cervical and left arm symptoms along with left back and leg pain by 40% or > to improve function Goal 3:: Patient to improve cervical rom and lumbar ROM for function of recovery. Goal 4:: Patient increase strength BLE by 1/2 grade to improve gait Goal 5:: Patient to improve back owestry score by 5 points or > to improve QOL. Plan: RTD If there are questions or concerns regarding this patient's physical therapy, please feel free to call me at [phone]. Thank you for the referral of this patient. Sincerely, Prakash Ruiz, PT, Cert MDT, OCS
== END 2020-01-11 19:00 | disposition home or self-care (01) ==
LOC: PT 15:30
PROVIDERS: PCP Family Medicine Geriatric Medicine; Referring Provider Internal Medicine Rheumatology; Visit Provider Internal Medicine Rheumatology
DX: M06.4 Inflammatory polyarthropathy (principal); M79.7 Fibromyalgia; M19.041 Primary osteoarthritis, right hand; M10.9 Gout, unspecified; M17.0 Bilateral primary osteoarthritis of knee; M47.897 Other spondylosis, lumbosacral region; K21.9 Gastro-esophageal reflux disease without esophagitis; E11.9 Type 2 diabetes mellitus without complications; I10 Essential (primary) hypertension; E78.5 Hyperlipidemia, unspecified; H18.453 Nodular corneal degeneration, bilateral
CPT/HCPCS: 97035; 97110; 97162

== ENCOUNTER → 2020-05-25 13:18 | Outpatient (CLI) | payer MEDICARE, SELFPAY ==
[2020-05-25 15:59] LABS: Absolute Lymphocyte Count 2.18 X10^3/uL (0.83-4.51); Basophil# 0.05 X10^3/uL; Basophil% 0.7 % (0-1); Eosinophil# 0.47 X10^3/uL; Eosinophils% 6.4 % (0-5); Hematocrit 37.6 % (37-47); Hemoglobin 11.6 g/dL (12.0-15.0); Lymphocyte # 2.18 X10^3/ul (4.0); Lymphocyte % 29.6 % (19-41); Mean Corp Hgb Conc 30.9 g/dL (32-36); Mean Corpuscular Hgb 29.1 pg (27.0-32.0); Mean Corpuscular Volume 94.5 fL (81-99); Mean Platelet Vol. 11.2 fl (6.2-12.0); Monocyte% 9.5 % (0-10); NRBC Flagged by Analyzer 0 % (0-5); Neutrophil # 3.95 X10^3/uL (2.7-7.7); Neutrophil % 53.5 % (47-70); Platelet Count 218 K/mm3 (150-450); RBC Distribution Width CV 14.5 % (11.6-14.6); RBC Distribution Width SD 50.3 fl (35.1-43.9); Red Blood Count 3.98 M/mm3 (4.2-5.4); White Blood Count 7.4 K/mm3 (4.4-11.0)
[2020-05-25 16:03] LABS: Vitamin D,25 Hydroxy 33.4 ng/mL
[2020-05-25 16:10] LABS: ALB/GLOB Ratio 1.1 RATIO (0.9-2.4); AST(SGOT) 58 U/L (15-37); Alanine Aminotransfer ALT/SGPT 37 U/L (13-56); Albumin, Serum 3.6 g/dL (3.2-5.0); Alkaline Phosphatase 138 U/L (45-117); Anion Gap 6 (5-15); BUN 22 mg/dL (7-18); BUN/Creat Ratio 19.8 RATIO (10-20); Chloride 107 mmol/L (98-107); Creatinine, Serum 1.11 mg/dL (0.55-1.02); EST Glomerular Filtration Rate 51 mL/min (>60); Est Glom Filt Rate - Afr Amer 61 mL/min (>60); Globulin 3.3 g/dL (2.2-4.2); Glucose 118 mg/dL (74-106); Potassium 4.5 mmol/L (3.5-5.1); Protein, Total 6.9 g/dL (6.4-8.2); Sodium Level 140 mmol/L (136-145)
== END ==
PROVIDERS: PCP Family Medicine Geriatric Medicine; Visit Provider Family Medicine Geriatric Medicine
DX: E11.9 Type 2 diabetes mellitus without complications (principal); E55.9 Vitamin D deficiency, unspecified; I10 Essential (primary) hypertension
CPT/HCPCS: 36415; 80053; 82306; 84443; 85025

== ENCOUNTER → 2020-06-05 09:01 | Outpatient (CLI) | payer MEDICARE, SELFPAY ==
--- NOTE | 2020-06-05 09:04 | US_ITS ---
STUDY: ABDOMINAL ULTRASOUND - RIGHT UPPER QUADRANT REASON FOR VISIT: Female, 74 years old. Abnormal liver enzymes. TECHNIQUE: Ultrasound evaluation of the right upper quadrant was performed with real-time and static lopes-scale imaging. TECHNICAL QUALITY: Adequate. COMPARISON: CT of the abdomen and pelvis, 06/22/2019. FINDINGS: Liver: The liver measures 14 point to cm. Is geographic fatty infiltration of the liver. The bile ducts are within normal limits. There is hepatic color flow. The direction of portal flow is hepatopetal. There is no demonstrated mass lesion. Gallbladder: Status post cholecystectomy. Common Bile Duct (C.B.D.): The common bile duct measures 4 mm. Pancreas: Normal size of the head, body and tail of the pancreas. There is normal echogenicity of the pancreas. There is no demonstrated pancreatic mass or cyst. Right Kidney: Normal size of the right kidney. The right kidney measures 10.8 cm. Normal renal cortex. The right cortex measures 1.6 cm. 1.6 x 1.5 x 1.2 cm simple cyst off the upper pole. There is a 1.6 x 1.4 x 1.7 cm cyst off the lower pole. There is no right hydronephrosis. US/Abdomen Limited IMPRESSION: 1. Question geographic fatty station of the liver. 2. Right renal cyst not noted on the prior CT. 3. Otherwise normal postcholecystectomy right upper quadrant ultrasound. Electronically Signed: Rosendo Hdz DO at 22:42 EST Tel [phone], Service support ,
[2020-06-06 05:07] LABS: HEPATITIS B SURFACE AG Negative (Negative); Hepatitis A AB, Total Negative (Negative); Hepatitis A IgM Antibody Negative (Negative); Hepatitis B Core AB IgM Negative (Negative); Hepatitis B Core Ab Total Negative (Negative); Hepatitis C Ab <0.1 s/co ratio (0.0-0.9)
[2020-06-07 14:51] LABS: Hep B Surface Antibodies Reactive (.)
== END ==
PROVIDERS: PCP Family Medicine Geriatric Medicine; Referring Provider Family Medicine Geriatric Medicine; Visit Provider Family Medicine Geriatric Medicine
DX: R74.8 Abnormal levels of other serum enzymes (principal)
CPT/HCPCS: 36415; 76705; 86704; 86705; 86706; 86708; 86709; 86803; 87340

== ENCOUNTER → 2020-06-20 08:30 | Outpatient (CLI) | payer MEDICARE, SELFPAY ==
--- NOTE | 2020-06-20 08:31 | US_ITS ---
STUDY: ABDOMINAL ULTRASOUND - ELASTOGRAPHY REASON FOR VISIT: Female, 74 years old. Fatty infiltration of the liver. TECHNIQUE: Liver stiffness measurements were obtained on a Balanced RS 85 ultrasound machine using a CA 1-7 probe following the SRU guidelines. 3 measurements were obtained using a 2-D-SWE method. The IQR/M was 22% suggesting a quality data set. TECHNICAL QUALITY: Adequate. COMPARISON: Comparison is made with prior ultrasound of the right upper quadrant dated 06/05/2020. FINDINGS: Liver: Fatty infiltration of the liver. Median liver stiffness measured 7.2 kPa. US/Elastography Parenchyma/Organ IMPRESSION: Liver stiffness measures 7.2 kPa compatible with F2 -- F3 Metavir score. Electronically Signed: Carmelo Steen MD at 12:44 EST , Service support ,
== END ==
PROVIDERS: PCP Family Medicine Geriatric Medicine; Visit Provider Family Medicine Geriatric Medicine
DX: K76.0 Fatty (change of) liver, not elsewhere classified (principal)
CPT/HCPCS: 76981

== ENCOUNTER → 2020-07-03 11:38 | Outpatient (CLI) | payer MEDICARE, SELFPAY ==
[2020-07-03 12:53] LABS: Absolute Lymphocyte Count 2.19 X10^3/uL (0.83-4.51); Absolute Neutrophil Count 3.7 X10^3/uL (2.0-7.7); Basophil# 0.05 X10^3/uL; Basophil% 0.7 % (0-1); Eosinophil# 0.43 X10^3/uL; Eosinophils% 6.1 % (0-5); Hematocrit 38.5 % (37-47); Hemoglobin 11.8 g/dL (12.0-15.0); Lymphocyte # 2.19 X10^3/ul (4.0); Lymphocyte % 31.1 % (19-41); Mean Corp Hgb Conc 30.6 g/dL (32-36); Mean Corpuscular Hgb 28.9 pg (27.0-32.0); Mean Corpuscular Volume 94.4 fL (81-99); Mean Platelet Vol. 10.7 fl (6.2-12.0); Monocyte# 0.68 X10^3/uL; Monocyte% 9.6 % (0-10); NRBC Flagged by Analyzer 0 % (0-5); Neutrophil # 3.68 X10^3/uL (2.7-7.7); Neutrophil % 52.2 % (47-70); Platelet Count 209 K/mm3 (150-450); RBC Distribution Width CV 14.1 % (11.6-14.6); Red Blood Count 4.08 M/mm3 (4.2-5.4); White Blood Count 7.1 K/mm3 (4.4-11.0)
[2020-07-03 13:23] LABS: ALB/GLOB Ratio 1.1 RATIO (0.9-2.4); AST(SGOT) 59 U/L (15-37); Alanine Aminotransfer ALT/SGPT 33 U/L (13-56); Albumin, Serum 3.7 g/dL (3.2-5.0); Alkaline Phosphatase 134 U/L (45-117); Anion Gap 6 (5-15); BUN 19 mg/dL (7-18); BUN/Creat Ratio 19.4 RATIO (10-20); Calcium,Total 9.4 mg/dL (8.5-10.1); Chloride 104 mmol/L (98-107); Creatinine, Serum 0.98 mg/dL (0.55-1.02); EST Glomerular Filtration Rate 59 mL/min (>60); Est Glom Filt Rate - Afr Amer 71 mL/min (>60); Globulin 3.5 g/dL (2.2-4.2); Glucose 105 mg/dL (74-106); Potassium 4.1 mmol/L (3.5-5.1); Protein, Total 7.2 g/dL (6.4-8.2); Sodium Level 139 mmol/L (136-145); Uric Acid 4.7 mg/dL (2.6-6.0)
== END ==
PROVIDERS: PCP Family Medicine Geriatric Medicine; Visit Provider Internal Medicine Rheumatology
DX: M06.4 Inflammatory polyarthropathy (principal); M79.7 Fibromyalgia; M19.041 Primary osteoarthritis, right hand; M10.9 Gout, unspecified; M17.0 Bilateral primary osteoarthritis of knee; M47.897 Other spondylosis, lumbosacral region; K21.9 Gastro-esophageal reflux disease without esophagitis; E11.9 Type 2 diabetes mellitus without complications; I10 Essential (primary) hypertension; E78.5 Hyperlipidemia, unspecified; H18.453 Nodular corneal degeneration, bilateral
CPT/HCPCS: 36415; 80053; 84550; 85025

== ENCOUNTER → 2020-08-08 11:29 | Outpatient (CLI) | payer MEDICARE, SELFPAY ==
--- NOTE | 2020-08-08 11:32 | RAD_ITS ---
STUDY: X-RAY - ABDOMEN/PELVIS REASON FOR EXAM: Female, 75 years old. ABD PAIN TECHNIQUE: 4 supine views of the abdomen COMPARISON: 06/05/2020. FINDINGS: Normal visualized lung bases. There is an unremarkable bowel gas pattern. There is no demonstrated free abdominal air. Moderate stool burden. Calcific densities left mid abdomen adjacent to the L2 vertebral body be vascular in nature calcific densities are also seen over the right upper quadrant. Normal soft tissue structures. There are diffuse degenerative changes of the visualized lumbar spine. RAD/Abd Inc Decub and/or Erect IMPRESSION: Moderate stool burden. Calcific densities left mid abdomen adjacent to the L2 vertebral body be vascular in nature calcific densities are also seen over the right upper quadrant. Consider cross-sectional imaging for further evaluation if clinically indicated. Electronically Signed: Douglas North MD at 12:22 EDT Tel , Service support ,
== END ==
PROVIDERS: PCP Family Medicine Geriatric Medicine; Referring Provider Family Medicine Geriatric Medicine; Visit Provider Family Medicine Geriatric Medicine
DX: R10.9 Unspecified abdominal pain (principal)
CPT/HCPCS: 74019; 87086; 87088

== ENCOUNTER → 2020-08-09 11:17 | Outpatient (CLI) | payer MEDICARE, SELFPAY | LOC: LABSPEC 11:18 → LAB 11:21 → LABSPEC 11:31 | PROVIDERS: PCP Family Medicine Geriatric Medicine; Referring Provider Family Medicine Geriatric Medicine; Visit Provider Family Medicine Geriatric Medicine | DX: R19.7 Diarrhea, unspecified (principal) | CPT/HCPCS: 36415; 82274; 83630; 87177; 87209; 87493; 87506 ==

== ENCOUNTER 2020-08-13 14:26 | Emergency (ER) | payer MEDICARE, SELFPAY ==
[2020-08-13 14:27] VITALS: BP 204/104; PULSE 79; RESP 18; TEMP 36.3; O2SAT 98; BMI 36.7
--- NOTE | 2020-08-13 14:59 | ED.VISSUMM ---
- ER Visit Summary Date of Service: 08/13/20 Chief Complaint: Right back and flank pain History of Present Illness: The patient is a 75 F history of diabetes prior cholecystectomy, hysterectomy and partial liver resection. Patient states she was carrying too many groceries about 6 days ago last Friday and had onset of back and right-sided abdominal pain. States is been bothered last 6 days. She saw her primary care physician who did x-rays and labs. She was placed on gabapentin for pain. States she had an ultrasound also in the last several weeks. She denies any vomiting or diarrhea. No dysuria. No fever. Physical Examination: Older female no acute distress vital signs stable initial blood pressure 204/104. HEENT exam unremarkable. Neck nontender. Lungs clear to auscultation bilaterally. Heart regular rhythm no murmur. Abdomen soft. Nontender nondistended normal bowel sounds no peritoneal signs. No pulsatile mass. Right upper and right lower quadrants are unremarkable. Back she has reproducible muscular skeletal tenderness on her right flank. There is no ecchymosis or bruising. No subcu air crepitance. Patient moving all 4 extremities. No edema. Neurologically she is awake and alert with no focal motor deficits. Test Results: I was going to order labs and possibly a CAT scan on the patient. She deferred having any test done. Emergency Department Course and Treatment: Patient complains of right flank pain it does appear to be musculoskeletal. It occurred after she was lifting too many groceries at one time. She states that she had x-rays and labs done by her primary care physician she did not want any further testing done. I did explain to her that this very well could be musculoskeletal pain but we could not rule out other etiologies without further testing. She does not want any labs or imaging done at this time. Treatment Plan: Tylenol and/or Motrin for pain. Ice to her right back and flank. Return to the emergency department if increasing pain, fever or feeling worse. Follow-up with your primary care physician to ensure she is improving. Disposition: Discharge Impression: Acute right flank pain musculoskeletal etiology Patient did not want any testing done This note was generated with [employer] dictation software. It may contain incorrect words, spelling, and punctuation that were not noted in review of the chart prior to signing ED Disposition - Plan for ED Patient: Referrals: Thomas Castro Chi, MD [Primary Care Provider] -
--- NOTE | 2020-08-13 15:02 | ED.DEP ---
ED Disposition - Plan for ED Patient: Disposition: Home or Assisted Living Instructions: ED Back Pain (Acute or Chronic) Referrals: Thomas Castro Chi, MD [Primary Care Provider] - 3-5 Days Additional Instructions: This may possibly be just musculoskeletal back pain. Ice to the area. Motrin and/or Tylenol for pain. Follow-up with Dr. Castro if not improving. Return to the emergency department if you are feeling worse.
[2020-08-13] MEDS: Acetaminophen 500 MG Tablet 1000 MG PO (15:20)
== END 2020-08-13 15:36 | disposition home or self-care (01) ==
LOC: ED 15:13
PROVIDERS: Emergency Provider Emergency Medicine; PCP Family Medicine Geriatric Medicine
DX: R10.9 Unspecified abdominal pain (principal); I10 Essential (primary) hypertension; E11.9 Type 2 diabetes mellitus without complications; Z90.49 Acquired absence of other specified parts of digestive tract; Z79.84 Long term (current) use of oral hypoglycemic drugs; Z79.899 Other long term (current) drug therapy
CPT/HCPCS: 99283

== ENCOUNTER → 2020-08-17 09:14 | Outpatient (CLI) | payer MEDICARE, SELFPAY ==
[2020-08-13 14:27] VITALS: BMI 36.7
[2020-08-17 09:48] LABS: Absolute Lymphocyte Count 1.89 X10^3/uL (0.83-4.51); Absolute Neutrophil Count 2.5 X10^3/uL (2.0-7.7); Basophil# 0.05 X10^3/uL; Basophil% 0.8 % (0-1); Eosinophil# 0.95 X10^3/uL; Hemoglobin 11.7 g/dL (12.0-15.0); Lymphocyte # 1.89 X10^3/ul (4.0); Lymphocyte % 31.9 % (19-41); Mean Corp Hgb Conc 31.6 g/dL (32-36); Mean Corpuscular Hgb 29.5 pg (27.0-32.0); Mean Corpuscular Volume 93.2 fL (81-99); Monocyte# 0.53 X10^3/uL; Monocyte% 8.9 % (0-10); NRBC Flagged by Analyzer 0 % (0-5); Neutrophil % 42.2 % (47-70); Platelet Count 179 K/mm3 (150-450); RBC Distribution Width CV 14.7 % (11.6-14.6); RBC Distribution Width SD 48.5 fl (35.1-43.9); Red Blood Count 3.97 M/mm3 (4.2-5.4); White Blood Count 5.9 K/mm3 (4.4-11.0)
[2020-08-17 10:26] LABS: ALB/GLOB Ratio 1.2 RATIO (0.9-2.4); AST(SGOT) 51 U/L (15-37); Alanine Aminotransfer ALT/SGPT 30 U/L (13-56); Albumin, Serum 3.7 g/dL (3.2-5.0); Alkaline Phosphatase 141 U/L (45-117); Amylase 42 U/L (25-115); Anion Gap 5 (5-15); BUN 30 mg/dL (7-18); BUN/Creat Ratio 26.1 RATIO (10-20); Chloride 103 mmol/L (98-107); Creatinine, Serum 1.15 mg/dL (0.55-1.02); EST Glomerular Filtration Rate 49 mL/min (>60); Est Glom Filt Rate - Afr Amer 59 mL/min (>60); Globulin 3.2 g/dL (2.2-4.2); Glucose 137 mg/dL (74-106); Potassium 4.3 mmol/L (3.5-5.1); Protein, Total 6.9 g/dL (6.4-8.2); Sodium Level 137 mmol/L (136-145)
== END ==
PROVIDERS: PCP Family Medicine Geriatric Medicine
DX: R19.4 Change in bowel habit (principal); R74.8 Abnormal levels of other serum enzymes; R10.84 Generalized abdominal pain
CPT/HCPCS: 36415; 80053; 82150; 85025

== ENCOUNTER → 2020-08-22 11:37 | Outpatient (CLI) | payer MEDICARE, SELFPAY ==
[2020-08-13 14:27] VITALS: BMI 36.7
[2020-08-22 12:58] LABS: Vitamin B12 433 pg/mL (211-911)
[2020-08-22 13:37] LABS: Ferritin 18 ng/mL (8-252); Iron 53 ug/dL (50-170); Iron Binding Capacity,Total 423 ug/dL (250-450)
[2020-08-23 16:08] LABS: Endomysial Antibody IgA Negative (Negative)
[2020-08-23 16:11] LABS: Deamidated Gliadin IgA 3 units (0-19); Deamidated Gliadin IgG 2 units (0-19); Immunoglobulin A 131 mg/dL (64-422); t-Transglutaminase IgA <2 U/mL (0-3)
== END ==
PROVIDERS: PCP Family Medicine Geriatric Medicine; Referring Provider Internal Medicine Gastroenterology; Visit Provider Internal Medicine Gastroenterology
DX: D64.9 Anemia, unspecified (principal); R19.7 Diarrhea, unspecified
CPT/HCPCS: 36415; 82607; 82728; 82746; 82784; 83516; 83540; 83550; 86255

== ENCOUNTER → 2020-08-23 11:24 | Outpatient (CLI) | payer MEDICARE, SELFPAY ==
[2020-08-13 14:27] VITALS: BMI 36.7
== END ==
PROVIDERS: PCP Family Medicine Geriatric Medicine; Visit Provider Internal Medicine Gastroenterology
DX: R19.7 Diarrhea, unspecified (principal)
CPT/HCPCS: 83630; 87177; 87209; 87493; 87506

== ENCOUNTER → 2020-10-09 11:32 | Outpatient (CLI) | payer MEDICARE, SELFPAY ==
[2020-10-09 12:51] LABS: Absolute Lymphocyte Count 2.23 X10^3/uL (0.83-4.51); Absolute Neutrophil Count 4.7 X10^3/uL (2.0-7.7); Basophil# 0.07 X10^3/uL; Basophil% 0.7 % (0-1); Eosinophil# 1.53 X10^3/uL; Eosinophils% 16.3 % (0-5); Hematocrit 36.9 % (37-47); Hemoglobin 11.2 g/dL (12.0-15.0); Lymphocyte # 2.23 X10^3/ul (0.83-4.51); Lymphocyte % 23.7 % (19-41); Mean Corp Hgb Conc 30.4 g/dL (32-36); Mean Corpuscular Hgb 28.6 pg (27.0-32.0); Mean Corpuscular Volume 94.4 fL (81-99); Mean Platelet Vol. 10.6 fl (6.2-12.0); Monocyte# 0.87 X10^3/uL; Monocyte% 9.2 % (0-10); NRBC Flagged by Analyzer 0 % (0-5); Neutrophil # 4.68 X10^3/uL (2.7-7.7); Neutrophil % 49.8 % (47-70); Platelet Count 205 K/mm3 (150-450); RBC Distribution Width CV 15.1 % (11.6-14.6); RBC Distribution Width SD 52.3 fl (35.1-43.9); Red Blood Count 3.91 M/mm3 (4.2-5.4); White Blood Count 9.4 K/mm3 (4.4-11.0)
[2020-10-09 13:26] LABS: ALB/GLOB Ratio 1.2 RATIO (0.9-2.4); AST(SGOT) 50 U/L (15-37); Alanine Aminotransfer ALT/SGPT 25 U/L (13-56); Albumin, Serum 3.6 g/dL (3.2-5.0); Alkaline Phosphatase 128 U/L (45-117); Anion Gap 5 (5-15); BUN 18 mg/dL (7-18); BUN/Creat Ratio 20.1 RATIO (10-20); Chloride 105 mmol/L (98-107); EST Glomerular Filtration Rate 65 mL/min (>60); Est Glom Filt Rate - Afr Amer 78 mL/min (>60); Globulin 3.1 g/dL (2.2-4.2); Glucose 73 mg/dL (74-106); Potassium 4.2 mmol/L (3.5-5.1); Protein, Total 6.7 g/dL (6.4-8.2); Sodium Level 140 mmol/L (136-145); Uric Acid 4.1 mg/dL (2.6-6.0)
== END ==
PROVIDERS: PCP Family Medicine Geriatric Medicine; Referring Provider Internal Medicine Rheumatology; Visit Provider Internal Medicine Rheumatology
DX: M06.4 Inflammatory polyarthropathy (principal); M19.041 Primary osteoarthritis, right hand; M17.0 Bilateral primary osteoarthritis of knee; K76.0 Fatty (change of) liver, not elsewhere classified; M47.897 Other spondylosis, lumbosacral region; M79.7 Fibromyalgia; E11.9 Type 2 diabetes mellitus without complications; I10 Essential (primary) hypertension; E78.5 Hyperlipidemia, unspecified; M10.9 Gout, unspecified; K21.9 Gastro-esophageal reflux disease without esophagitis; H18.453 Nodular corneal degeneration, bilateral
CPT/HCPCS: 36415; 80053; 84550; 85025

== ENCOUNTER → 2020-11-30 13:02 | Outpatient (CLI) | payer MEDICARE, SELFPAY ==
[2020-11-30 14:43] LABS: Absolute Lymphocyte Count 2.29 X10^3/uL (0.83-4.51); Absolute Neutrophil Count 3.8 X10^3/uL (2.0-7.7); Basophil# 0.06 X10^3/uL; Basophil% 0.7 % (0-1); Eosinophil# 1.33 X10^3/uL; Hemoglobin 11.3 g/dL (12.0-15.0); Lymphocyte # 2.29 X10^3/ul (0.83-4.51); Lymphocyte % 27.6 % (19-41); Mean Corp Hgb Conc 30.5 g/dL (32-36); Mean Corpuscular Hgb 28.8 pg (27.0-32.0); Mean Corpuscular Volume 94.4 fL (81-99); Monocyte# 0.77 X10^3/uL; Monocyte% 9.3 % (0-10); NRBC Flagged by Analyzer 0 % (0-5); Neutrophil # 3.82 X10^3/uL (2.7-7.7); Neutrophil % 46.2 % (47-70); Platelet Count 197 K/mm3 (150-450); RBC Distribution Width CV 14.6 % (11.6-14.6); RBC Distribution Width SD 50.6 fl (35.1-43.9); Red Blood Count 3.92 M/mm3 (4.2-5.4); White Blood Count 8.3 K/mm3 (4.4-11.0)
[2020-11-30 14:57] LABS: Vitamin D,25 Hydroxy 31.5 ng/mL
[2020-11-30 15:06] LABS: ALB/GLOB Ratio 1.1 RATIO (0.9-2.4); AST(SGOT) 54 U/L (15-37); Alanine Aminotransfer ALT/SGPT 28 U/L (13-56); Albumin, Serum 3.5 g/dL (3.2-5.0); Alkaline Phosphatase 138 U/L (45-117); Anion Gap 7 (5-15); BUN 20 mg/dL (7-18); BUN/Creat Ratio 21.3 RATIO (10-20); Calcium,Total 8.9 mg/dL (8.5-10.1); Chloride 103 mmol/L (98-107); Creatinine, Serum 0.94 mg/dL (0.55-1.02); EST Glomerular Filtration Rate 61 mL/min (>60); Est Glom Filt Rate - Afr Amer 74 mL/min (>60); Globulin 3.3 g/dL (2.2-4.2); Glucose 97 mg/dL (74-106); Protein, Total 6.8 g/dL (6.4-8.2); Sodium Level 140 mmol/L (136-145); Thyroid Stim Hormone (TSH) 1.61 uIU/mL (0.358-3.74)
== END ==
PROVIDERS: PCP Family Medicine Geriatric Medicine; Visit Provider Family Medicine Geriatric Medicine
DX: E11.9 Type 2 diabetes mellitus without complications (principal); E55.9 Vitamin D deficiency, unspecified; I10 Essential (primary) hypertension
CPT/HCPCS: 36415; 80053; 82306; 84443; 85025

== ENCOUNTER → 2020-12-23 08:28 | Outpatient (CLI) | payer MEDICARE, SELFPAY ==
[2020-12-23 09:50] LABS: Absolute Neutrophil Count 5.3 X10^3/uL (2.0-7.7); Basophil# 0.05 X10^3/uL; Basophil% 0.5 % (0-1); Eosinophil# 1.06 X10^3/uL; Eosinophils% 11.6 % (0-5); Hematocrit 35.3 % (37-47); Hemoglobin 10.8 g/dL (12.0-15.0); Lymphocyte % 20.7 % (19-41); Mean Corp Hgb Conc 30.6 g/dL (32-36); Mean Corpuscular Volume 94.6 fL (81-99); Mean Platelet Vol. 10.6 fl (6.2-12.0); Monocyte# 0.78 X10^3/uL; Monocyte% 8.5 % (0-10); NRBC Flagged by Analyzer 0 % (0-5); Neutrophil # 5.34 X10^3/uL (2.7-7.7); Neutrophil % 58.3 % (47-70); Platelet Count 204 K/mm3 (150-450); RBC Distribution Width CV 14.6 % (11.6-14.6); RBC Distribution Width SD 50.4 fl (35.1-43.9); Red Blood Count 3.73 M/mm3 (4.2-5.4); White Blood Count 9.2 K/mm3 (4.4-11.0)
[2020-12-23 09:55] LABS: AST(SGOT) 44 U/L (15-37); Alanine Aminotransfer ALT/SGPT 25 U/L (13-56); Albumin, Serum 3.4 g/dL (3.2-5.0); Alkaline Phosphatase 115 U/L (45-117); Anion Gap 6 (5-15); BUN 18 mg/dL (7-18); BUN/Creat Ratio 18.1 RATIO (10-20); Calcium,Total 8.7 mg/dL (8.5-10.1); Chloride 105 mmol/L (98-107); Creatinine, Serum 0.99 mg/dL (0.55-1.02); EST Glomerular Filtration Rate 58 mL/min (>60); Est Glom Filt Rate - Afr Amer 70 mL/min (>60); Globulin 3.5 g/dL (2.2-4.2); Glucose 131 mg/dL (74-106); Potassium 3.9 mmol/L (3.5-5.1); Protein, Total 6.9 g/dL (6.4-8.2); Sodium Level 139 mmol/L (136-145)
[2020-12-23 09:59] LABS: Bilirubin, Direct 0.15 mg/dL (0.00-0.30)
== END ==
PROVIDERS: PCP Family Medicine Geriatric Medicine; Referring Provider Internal Medicine Gastroenterology; Visit Provider Internal Medicine Gastroenterology
DX: R74.8 Abnormal levels of other serum enzymes (principal)
CPT/HCPCS: 36415; 80053; 82247; 82248; 85025

== ENCOUNTER → 2021-03-05 10:10 | Outpatient (CLI) | payer MEDICARE, SELFPAY ==
[2021-03-05 10:43] LABS: Absolute Lymphocyte Count 1.88 X10^3/uL (0.83-4.51); Basophil# 0.04 X10^3/uL; Basophil% 0.6 % (0-1); Eosinophils% 2.9 % (0-5); Hematocrit 36.1 % (37-47); Hemoglobin 11.2 g/dL (12.0-15.0); Lymphocyte # 1.88 X10^3/ul (0.83-4.51); Lymphocyte % 27.6 % (19-41); Mean Corpuscular Hgb 28.7 pg (27.0-32.0); Mean Corpuscular Volume 92.6 fL (81-99); Mean Platelet Vol. 9.7 fl (6.2-12.0); Monocyte% 10.3 % (0-10); NRBC Flagged by Analyzer 0 % (0-5); Neutrophil # 3.96 X10^3/uL (2.7-7.7); Neutrophil % 58.2 % (47-70); Platelet Count 187 K/mm3 (150-450); RBC Distribution Width CV 14.5 % (11.6-14.6); RBC Distribution Width SD 49.2 fl (35.1-43.9); White Blood Count 6.8 K/mm3 (4.4-11.0)
[2021-03-05 11:13] LABS: AST(SGOT) 44 U/L (15-37); Alanine Aminotransfer ALT/SGPT 21 U/L (13-56); Albumin, Serum 3.3 g/dL (3.2-5.0); Alkaline Phosphatase 100 U/L (45-117); Anion Gap 7 (5-15); BUN 17 mg/dL (7-18); BUN/Creat Ratio 16.5 RATIO (10-20); Calcium,Total 9.5 mg/dL (8.5-10.1); Chloride 103 mmol/L (98-107); Creatinine, Serum 1.03 mg/dL (0.55-1.02); EST Glomerular Filtration Rate 55 mL/min (>60); Est Glom Filt Rate - Afr Amer 67 mL/min (>60); Globulin 3.4 g/dL (2.2-4.2); Glucose 122 mg/dL (74-106); Potassium 4.3 mmol/L (3.5-5.1); Protein, Total 6.7 g/dL (6.4-8.2); Sodium Level 138 mmol/L (136-145); Uric Acid 4.3 mg/dL (2.6-6.0)
== END ==
PROVIDERS: PCP Family Medicine Geriatric Medicine; Referring Provider Internal Medicine Rheumatology; Visit Provider Internal Medicine Rheumatology
DX: M06.4 Inflammatory polyarthropathy (principal); M79.7 Fibromyalgia; M19.041 Primary osteoarthritis, right hand; M10.9 Gout, unspecified; M17.0 Bilateral primary osteoarthritis of knee; K76.0 Fatty (change of) liver, not elsewhere classified; M47.897 Other spondylosis, lumbosacral region; K21.9 Gastro-esophageal reflux disease without esophagitis; E11.9 Type 2 diabetes mellitus without complications; I10 Essential (primary) hypertension; E78.5 Hyperlipidemia, unspecified; H18.453 Nodular corneal degeneration, bilateral
CPT/HCPCS: 36415; 80053; 84550; 85025

== ENCOUNTER → 2021-04-06 09:31 | Outpatient (CLI) | payer MEDICARE, SELFPAY ==
[2021-04-06 11:34] LABS: ALB/GLOB Ratio 0.9 RATIO (0.9-2.4); AST(SGOT) 51 U/L (15-37); Alanine Aminotransfer ALT/SGPT 23 U/L (13-56); Albumin, Serum 3.2 g/dL (3.2-5.0); Alkaline Phosphatase 101 U/L (45-117); Anion Gap 6 (5-15); BUN 19 mg/dL (7-18); BUN/Creat Ratio 18.1 RATIO (10-20); Bilirubin, Direct 0.16 mg/dL (0.00-0.30); Chloride 104 mmol/L (98-107); Creatinine, Serum 1.05 mg/dL (0.55-1.02); EST Glomerular Filtration Rate 54 mL/min (>60); Est Glom Filt Rate - Afr Amer 65 mL/min (>60); Globulin 3.7 g/dL (2.2-4.2); Glucose 121 mg/dL (74-106); Potassium 4.3 mmol/L (3.5-5.1); Protein, Total 6.9 g/dL (6.4-8.2); Sodium Level 138 mmol/L (136-145)
== END ==
PROVIDERS: PCP Family Medicine Geriatric Medicine; Referring Provider Internal Medicine Gastroenterology; Visit Provider Internal Medicine Gastroenterology
DX: R74.8 Abnormal levels of other serum enzymes (principal)
CPT/HCPCS: 36415; 80053; 82248

== ENCOUNTER → 2021-04-11 15:10 | Outpatient (CLI) | payer MEDICARE, SELFPAY ==
--- NOTE | 2021-04-11 15:36 | RAD_ITS ---
STUDY: X-RAY CHEST REASON FOR EXAM: Female, 75 years old. Shortness of breath for one week. Weakness. TECHNIQUE: PA and lateral views of the chest. COMPARISON: 06/22/2019. FINDINGS: The improved inspiratory effort when compared to the prior study with decreased elevation of the right hemidiaphragm. Lungs appear clear. There is no demonstrated pleural abnormality. Normal size heart. Normal mediastinum and grupo. Normal visualized pulmonary arteries. There is atherosclerotic calcification of the aortic arch with tortuosity. There are diffuse degenerative changes of the visualized thoracic spine. There is degenerative osteoarthritis of the bilateral shoulders. There is no demonstrated abnormality of the visualized soft tissue structures of the upper abdomen. RAD/Chest PA and Lateral IMPRESSION: Degenerative changes, as described above. No demonstrated acute cardiopulmonary process. Electronically Signed: Rosendo Hdz DO at 16:55 EST Tel [phone], Service support ,
[2021-04-11 17:13] LABS: Absolute Lymphocyte Count 0.63 X10^3/uL (0.83-4.51); Absolute Neutrophil Count 4.2 X10^3/uL (2.0-7.7); Basophil# 0.03 X10^3/uL; Basophil% 0.5 % (0-1); Eosinophil# 0.19 X10^3/uL; Eosinophils% 3.3 % (0-5); Hematocrit 33.3 % (37-47); Hemoglobin 10.2 g/dL (12.0-15.0); Lymphocyte # 0.63 X10^3/ul (0.83-4.51); Mean Corp Hgb Conc 30.6 g/dL (32-36); Mean Corpuscular Hgb 28.3 pg (27.0-32.0); Mean Corpuscular Volume 92.5 fL (81-99); Monocyte# 0.64 X10^3/uL; Monocyte% 11.2 % (0-10); NRBC Flagged by Analyzer 0 % (0-5); Neutrophil # 4.18 X10^3/uL (2.7-7.7); Neutrophil % 73.3 % (47-70); Platelet Count 143 K/mm3 (150-450); RBC Distribution Width CV 14.3 % (11.6-14.6); RBC Distribution Width SD 48.2 fl (35.1-43.9); White Blood Count 5.7 K/mm3 (4.4-11.0)
[2021-04-11 17:57] LABS: Vitamin B12 > 2000 pg/mL (211-911)
[2021-04-11 18:21] LABS: ALB/GLOB Ratio 0.8 RATIO (0.9-2.4); AST(SGOT) 81 U/L (15-37); Alanine Aminotransfer ALT/SGPT 45 U/L (13-56); Alkaline Phosphatase 153 U/L (45-117); Anion Gap 8 (5-15); BUN 23 mg/dL (7-18); BUN/Creat Ratio 16.1 RATIO (10-20); Calcium,Total 8.8 mg/dL (8.5-10.1); Chloride 102 mmol/L (98-107); Creatinine, Serum 1.43 mg/dL (0.55-1.02); EST Glomerular Filtration Rate 38 mL/min (>60); Est Glom Filt Rate - Afr Amer 46 mL/min (>60); Ferritin 49 ng/mL (8-252); Globulin 3.9 g/dL (2.2-4.2); Glucose 133 mg/dL (74-106); Iron 20 ug/dL (50-170); Iron Binding Capacity,Total 350 ug/dL (250-450); PERCENT IRON SATURATION 5.7 % (15.0-55.0); Protein, Total 6.9 g/dL (6.4-8.2); Sodium Level 136 mmol/L (136-145); Thyroid Stim Hormone (TSH) 1.62 uIU/mL (0.358-3.74)
[2021-04-13 17:08] LABS: Endomysial Antibody IgA Negative (Negative)
[2021-04-14 08:01] LABS: Deamidated Gliadin IgA 3 units (0-19); Deamidated Gliadin IgG 2 units (0-19); Immunoglobulin A 136 mg/dL (64-422); t-Transglutaminase IgA <2 U/mL (0-3)
== END ==
PROVIDERS: PCP Family Medicine Geriatric Medicine; Referring Provider Family Medicine Geriatric Medicine; Visit Provider Family Medicine Geriatric Medicine
DX: R94.5 Abnormal results of liver function studies (principal); R53.83 Other fatigue; N39.0 Urinary tract infection, site not specified; R06.02 Shortness of breath
CPT/HCPCS: 36415; 71046; 80053; 82607; 82728; 82746; 82784; 83516; 83540; 83550; 84443; 85025; 86255; 87086; 87088

== ENCOUNTER → 2021-05-10 11:06 | Outpatient (CLI) | payer MEDICARE, SELFPAY ==
[2021-05-10 12:43] LABS: Absolute Lymphocyte Count 2.01 X10^3/uL (0.83-4.51); Absolute Neutrophil Count 3.6 X10^3/uL (2.0-7.7); Basophil# 0.05 X10^3/uL; Basophil% 0.8 % (0-1); Eosinophil# 0.16 X10^3/uL; Eosinophils% 2.4 % (0-5); Hematocrit 33.7 % (37-47); Hemoglobin 10.3 g/dL (12.0-15.0); Lymphocyte # 2.01 X10^3/ul (0.83-4.51); Lymphocyte % 30.4 % (19-41); Mean Corp Hgb Conc 30.6 g/dL (32-36); Mean Corpuscular Hgb 29.1 pg (27.0-32.0); Mean Corpuscular Volume 95.2 fL (81-99); Mean Platelet Vol. 10.5 fl (6.2-12.0); Monocyte# 0.66 X10^3/uL; NRBC Flagged by Analyzer 0 % (0-5); Neutrophil # 3.64 X10^3/uL (2.7-7.7); Platelet Count 166 K/mm3 (150-450); RBC Distribution Width CV 15.2 % (11.6-14.6); RBC Distribution Width SD 53.4 fl (35.1-43.9); Red Blood Count 3.54 M/mm3 (4.2-5.4); White Blood Count 6.6 K/mm3 (4.4-11.0)
== END ==
PROVIDERS: PCP Family Medicine Geriatric Medicine; Visit Provider Family Medicine Geriatric Medicine
DX: D64.9 Anemia, unspecified (principal)
CPT/HCPCS: 36415; 85025

== ENCOUNTER → 2021-05-24 09:34 | Outpatient (CLI) | payer MEDICARE, SELFPAY ==
[2021-05-24 10:45] LABS: Absolute Lymphocyte Count 1.89 X10^3/uL (0.83-4.51); Absolute Neutrophil Count 4.8 X10^3/uL (2.0-7.7); Basophil# 0.04 X10^3/uL; Basophil% 0.5 % (0-1); Eosinophil# 0.12 X10^3/uL; Eosinophils% 1.6 % (0-5); Hematocrit 35.1 % (37-47); Hemoglobin 10.7 g/dL (12.0-15.0); Lymphocyte # 1.89 X10^3/ul (0.83-4.51); Lymphocyte % 24.9 % (19-41); Mean Corp Hgb Conc 30.5 g/dL (32-36); Mean Corpuscular Hgb 28.8 pg (27.0-32.0); Mean Corpuscular Volume 94.6 fL (81-99); Mean Platelet Vol. 10.1 fl (6.2-12.0); Monocyte# 0.73 X10^3/uL; Monocyte% 9.6 % (0-10); NRBC Flagged by Analyzer 0 % (0-5); Neutrophil # 4.78 X10^3/uL (2.7-7.7); Platelet Count 200 K/mm3 (150-450); RBC Distribution Width CV 14.8 % (11.6-14.6); RBC Distribution Width SD 51.3 fl (35.1-43.9); Red Blood Count 3.71 M/mm3 (4.2-5.4); White Blood Count 7.6 K/mm3 (4.4-11.0)
[2021-05-24 11:09] LABS: ALB/GLOB Ratio 1.1 RATIO (0.9-2.4); AST(SGOT) 40 U/L (15-37); Alanine Aminotransfer ALT/SGPT 22 U/L (13-56); Albumin, Serum 3.4 g/dL (3.2-5.0); Alkaline Phosphatase 87 U/L (45-117); Anion Gap 6 (5-15); BUN 19 mg/dL (7-18); BUN/Creat Ratio 20.5 RATIO (10-20); Calcium,Total 8.9 mg/dL (8.5-10.1); Chloride 106 mmol/L (98-107); Creatinine, Serum 0.93 mg/dL (0.55-1.02); EST Glomerular Filtration Rate 62 mL/min (>60); Est Glom Filt Rate - Afr Amer 75 mL/min (>60); Globulin 3.2 g/dL (2.2-4.2); Glucose 117 mg/dL (74-106); Potassium 4.1 mmol/L (3.5-5.1); Protein, Total 6.6 g/dL (6.4-8.2); Sodium Level 139 mmol/L (136-145)
== END ==
PROVIDERS: PCP Family Medicine Geriatric Medicine; Referring Provider Internal Medicine Gastroenterology; Visit Provider Internal Medicine Gastroenterology
DX: R94.5 Abnormal results of liver function studies (principal)
CPT/HCPCS: 36415; 80053; 82248; 85025

== ENCOUNTER 2021-06-13 13:11 | Outpatient (CLI) | payer MEDICARE, SELFPAY ==
[2021-06-13 16:22] LABS: Absolute Neutrophil Count 4.8 X10^3/uL (2.0-7.7); Basophil# 0.04 X10^3/uL; Basophil% 0.5 % (0-1); Eosinophil# 0.16 X10^3/uL; Eosinophils% 2.1 % (0-5); Hematocrit 35.6 % (37-47); Hemoglobin 10.9 g/dL (12.0-15.0); Lymphocyte % 26.2 % (19-41); Mean Corp Hgb Conc 30.6 g/dL (32-36); Mean Corpuscular Hgb 28.8 pg (27.0-32.0); Mean Corpuscular Volume 93.9 fL (81-99); Mean Platelet Vol. 10.5 fl (6.2-12.0); Monocyte# 0.63 X10^3/uL; Monocyte% 8.2 % (0-10); NRBC Flagged by Analyzer 0 % (0-5); Neutrophil # 4.79 X10^3/uL (2.7-7.7); Neutrophil % 62.7 % (47-70); Platelet Count 212 K/mm3 (150-450); RBC Distribution Width CV 14.9 % (11.6-14.6); RBC Distribution Width SD 51.2 fl (35.1-43.9); Red Blood Count 3.79 M/mm3 (4.2-5.4); White Blood Count 7.6 K/mm3 (4.4-11.0)
[2021-06-13 16:40] LABS: Vitamin D,25 Hydroxy 38.3 ng/mL
[2021-06-13 16:51] LABS: AST(SGOT) 44 U/L (15-37); Alanine Aminotransfer ALT/SGPT 22 U/L (13-56); Albumin, Serum 3.4 g/dL (3.2-5.0); Alkaline Phosphatase 100 U/L (45-117); Anion Gap 7 (5-15); BUN 18 mg/dL (7-18); BUN/Creat Ratio 17.1 RATIO (10-20); Calcium,Total 8.9 mg/dL (8.5-10.1); Chloride 106 mmol/L (98-107); Creatinine, Serum 1.05 mg/dL (0.55-1.02); EST Glomerular Filtration Rate 54 mL/min (>60); Est Glom Filt Rate - Afr Amer 65 mL/min (>60); Globulin 3.3 g/dL (2.2-4.2); Glucose 123 mg/dL (74-106); Potassium 4.2 mmol/L (3.5-5.1); Protein, Total 6.7 g/dL (6.4-8.2); Sodium Level 139 mmol/L (136-145); Thyroid Stim Hormone (TSH) 1.51 uIU/mL (0.358-3.74); Uric Acid 3.9 mg/dL (2.6-6.0)
== END 2021-06-13 23:59 | disposition short-term general hospital (02) ==
LOC: POLAB3 13:16
PROVIDERS: PCP Family Medicine Geriatric Medicine; Visit Provider Family Medicine Geriatric Medicine
DX: E11.9 Type 2 diabetes mellitus without complications (principal); E55.9 Vitamin D deficiency, unspecified; I10 Essential (primary) hypertension; M10.9 Gout, unspecified
CPT/HCPCS: 36415; 80053; 82306; 84443; 84550; 85025

== ENCOUNTER 2021-08-02 09:31 | Outpatient (CLI) | payer MEDICARE, SELFPAY | END 2021-08-02 23:59 | disposition home or self-care (01) | LOC: PSN 09:34 | PROVIDERS: PCP Family Medicine Geriatric Medicine; Referring Provider Family Medicine Geriatric Medicine; Visit Provider Family Medicine Geriatric Medicine | DX: R68.83 Chills (without fever) (principal) | CPT/HCPCS: 87635; 87804; 87807; C9803; U0003; U0005 ==

== ENCOUNTER 2021-08-24 10:21 | Outpatient (CLI) | payer MEDICARE, SELFPAY ==
[2021-08-24 10:44] LABS: Absolute Lymphocyte Count 1.87 X10^3/uL (0.83-4.51); Basophil# 0.03 X10^3/uL; Basophil% 0.4 % (0-1); Eosinophil# 0.08 X10^3/uL; Hematocrit 35.2 % (37-47); Hemoglobin 11.1 g/dL (12.0-15.0); Lymphocyte # 1.87 X10^3/ul (0.83-4.51); Lymphocyte % 24.5 % (19-41); Mean Corp Hgb Conc 31.5 g/dL (32-36); Mean Corpuscular Hgb 28.8 pg (27.0-32.0); Mean Corpuscular Volume 91.4 fL (81-99); Mean Platelet Vol. 9.8 fl (6.2-12.0); Monocyte# 0.66 X10^3/uL; Monocyte% 8.7 % (0-10); NRBC Flagged by Analyzer 0 % (0-5); Neutrophil # 4.95 X10^3/uL (2.7-7.7); Platelet Count 177 K/mm3 (150-450); RBC Distribution Width CV 13.8 % (11.6-14.6); Red Blood Count 3.85 M/mm3 (4.2-5.4); White Blood Count 7.6 K/mm3 (4.4-11.0)
[2021-08-24 11:25] LABS: Ferritin 9 ng/mL (8-252); Iron 62 ug/dL (50-170); Iron Binding Capacity,Total 435 ug/dL (250-450)
[2021-08-24 14:18] LABS: Vitamin B12 968 pg/mL (211-911)
[2021-08-25 13:28] LABS: PERCENT IRON SATURATION 14.3 % (15.0-55.0)
[2021-08-27 14:09] LABS: Endomysial Antibody IgA Negative (Negative)
[2021-08-27 14:30] LABS: Deamidated Gliadin IgA 2 units (0-19); Deamidated Gliadin IgG 2 units (0-19); Immunoglobulin A 148 mg/dL (64-422); t-Transglutaminase IgA <2 U/mL (0-3)
== END 2021-08-24 23:59 | disposition home or self-care (01) ==
LOC: LAB 10:22
PROVIDERS: PCP Family Medicine Geriatric Medicine; Referring Provider Internal Medicine Gastroenterology; Visit Provider Internal Medicine Gastroenterology
DX: D64.9 Anemia, unspecified (principal)
CPT/HCPCS: 36415; 82607; 82728; 82746; 82784; 83516; 83540; 83550; 85025; 86255

== ENCOUNTER → 2021-10-24 | Outpatient (CLI) | payer MEDICARE, SELFPAY ==
--- NOTE | 2021-10-24 16:15 | RAD_ITS ---
STUDY: X-RAY - LUMBAR SPINE REASON FOR EXAM: Female, 76 years old. LOW BACK PAIN TECHNIQUE: 2 view(s) of the lumbar spine were obtained. COMPARISON: Abdominal radiographs of 08/08/2020. Lumbar radiographs of 11/23/2018. FINDINGS: Slight lumbar levoscoliosis, unchanged since 2020. Slight anterolisthesis of L3 on L4. Grade 1 anterolisthesis of L4 on L5. The spondylolisthesis at these 2 levels has slightly worsened/progressed since the prior lateral lumbar radiograph of 11/23/2018. Stable degenerative disc space narrowing with endplate sclerosis and marginal osteophytes at the T11/12 and T12/L1 levels. Interval development of minimal degenerative disc space narrowing at L3/4 since the study of 2018. Severe degenerative disc space narrowing at L4/5, with progression since the prior study of 2018. Stable severe degenerative disc space narrowing with endplate sclerosis and marginal osteophytes at L5/S1. Extensive lumbar facet arthritis is again noted. No acute compression fracture. Aortoiliac atherosclerotic vascular calcification is again noted. Stable SI joints. No renal calculi identified. RAD/Lumbar Spine 2 or 3 Views IMPRESSION: No acute fracture. Lower thoracic and lumbar degenerative disc disease and facet arthritis, with progression of the degenerative findings at L3/4 and L4/5. Electronically Signed: Conrad Garnett MD at 2:37 EDT ,
== END | disposition home or self-care (01) ==
LOC: RAD 16:00
PROVIDERS: PCP Family Medicine Geriatric Medicine; Referring Provider Family Medicine Geriatric Medicine; Visit Provider Family Medicine Geriatric Medicine
DX: M54.50 Low back pain, unspecified (principal)
CPT/HCPCS: 72100

== ENCOUNTER → 2021-10-26 | Outpatient (CLI) | payer MEDICARE, SELFPAY ==
--- NOTE | 2021-10-26 12:49 | VDLE_ITS ---
Reason For Study: Edema Procedure LEFT This is a venous duplex using B-mode, color GSV is normal. flow and spectral Doppler. CFV is compressible, spontaneous, phasic, Exam performed in department. competent, and demonstrates normal A preliminary report was called and/or faxed augmentation. to Matthew. FV is compressible, spontaneous, phasic, competent and demonstrates normal augmentation. POP V is compressible, spontaneous, phasic, competent and demonstrates normal augmentation. T/P Trunk is compressible. PTV is compressible. LT PerV is compressible. VL/Venous Duplex US, Unilateral Interpretation Summary Deep veins of the left lower extremity are patent and compressible segmentally. There is no evidence of left lower extremity deep vein thrombosis. Valvular competence appears intac t within the proximal deep venous system on the left . The left great saphenous vein appears patent a nd compressible segmentally. Ordering Physician: Thomas Castro Referring Physician: Thomas Castro Chi Performed By: Clara Levine RVT
== END | disposition home or self-care (01) ==
LOC: CVS 12:47
PROVIDERS: PCP Family Medicine Geriatric Medicine; Referring Provider Family Medicine Geriatric Medicine; Visit Provider Family Medicine Geriatric Medicine
DX: R60.1 Generalized edema (principal)
CPT/HCPCS: 93971

== ENCOUNTER → 2021-11-05 | Outpatient (CLI) | payer MEDICARE, SELFPAY | END | disposition home or self-care (01) | LOC: PSN 11:48 | PROVIDERS: PCP Family Medicine Geriatric Medicine; Referring Provider Family Medicine Geriatric Medicine; Visit Provider Family Medicine Geriatric Medicine | DX: U07.1 COVID-19 (principal) | CPT/HCPCS: 87426; C9803 ==

== ENCOUNTER → 2021-11-19 | Outpatient (CLI) | payer MEDICARE, SELFPAY ==
[2021-11-19 11:24] LABS: BNP,B-Type NATRIURETIC PEPTIDE 70.3 pg/mL (0-100)
[2021-11-19 11:44] LABS: Anion Gap 5 (5-15); BUN 15 mg/dL (7-18); BUN/Creat Ratio 15.8 RATIO (10-20); Calcium,Total 8.7 mg/dL (8.5-10.1); Chloride 109 mmol/L (98-107); Creatinine, Serum 0.95 mg/dL (0.55-1.02); EST Glomerular Filtration Rate 60 mL/min (>60); Est Glom Filt Rate - Afr Amer 73 mL/min (>60); Glucose 121 mg/dL (74-106); Potassium 3.9 mmol/L (3.5-5.1); Sodium Level 141 mmol/L (136-145)
== END | disposition home or self-care (01) ==
LOC: LAB 10:43
PROVIDERS: PCP Family Medicine Geriatric Medicine
DX: R06.02 Shortness of breath (principal); R60.0 Localized edema
CPT/HCPCS: 36415; 80048; 83880

== ENCOUNTER → 2021-11-29 | Outpatient (CLI) | payer MEDICARE, SELFPAY ==
--- NOTE | 2021-11-29 12:52 | ECHOD_ITS ---
Procedure This was a 2D Doppler, Color Flow transthoracic echocardiogram. The study was technically difficult. Patient refused use of definity. Exam performed in department. Left Ventricle Based upon the 2D echocardiographic images obtained there appears to be grossly normal left ventricular size, wall motion, and systolic function. The estimated ejection fraction is 65 %. Diastolic function is indeterminate. Right Ventricle Normal RV size. Normal systolic function. Atria The left atrium is mildly enlarged. Normal right atrium. No doppler evidence for ASD. Mitral Valve There is no mitral annular calcification. Normal mitral valve. Trivial mitral valve insufficiency. Tricuspid Valve Normal tricuspid valve. Trivial tricuspid valve insufficiency. Right ventricular systolic pressure estimated to be 30 mmHg. Aortic Valve Trisinus/trileaflet aortic valve. Normal aortic valve. Pulmonic Valve The pulmonic valve is not well visualized. Great Vessels Normal sized aortic root. Pericardium/Pleural No pericardial effusion. MMode/2D Measurements & Calculations LVIDd: 3.7 cm IVSd: 1.1 cm Ao root diam: 3.3 cm LVIDs: 2.2 cm LVPWd: 1.4 cm FS: 41.6 % LAV(MOD-sp4): 65.9 ml LA A4 area: 22.3 cm2 Doppler Measurements & Calculations MV E max rico: 55.7 cm/sec Lat Peak E' Rico: 5.7 cm/sec Med Peak E' Rico: 4.5 cm/sec MV A max rico: 73.1 cm/sec E/E' lat: 9.7 E/E' med: 12.3 MV E/A: 0.76 Ao V2 max: 158.4 cm/sec LV V1 max: 104.0 cm/sec PA V2 max: 101.1 cm/sec Ao max P.0 mmHg LV V1 max P.4 mmHg TR max rico: 258.1 cm/sec TR max P.7 mmHg ECHO/Echo Complete Interpretation Summary The study was technically difficult. Based upon the 2D echocardiographic images obtained there appears to be grossly normal left ventricular size, wall motion, and systolic function. The estimated ejection fraction is 65 %. The left atrium is mildly enlarged. Trivial mitral valve insufficiency. Trivial tricuspid valve insufficiency. Right ventricular systolic pressure estimated to be 30 mmHg. Diastolic function is indeterminate. Ordering Physician: SUMIT STARKS Referring Physician: SUMIT STARKS Performed By: Elizabeth Mack RCS
== END | disposition home or self-care (01) ==
LOC: CVS 12:48
PROVIDERS: PCP Family Medicine Geriatric Medicine
DX: R06.02 Shortness of breath (principal); R60.0 Localized edema
CPT/HCPCS: 93306

== ENCOUNTER → 2021-12-13 | Outpatient (CLI) | payer MEDICARE, SELFPAY ==
[2021-12-13 16:21] LABS: Absolute Lymphocyte Count 1.77 X10^3/uL (0.83-4.51); Basophil# 0.05 X10^3/uL; Basophil% 0.8 % (0-1); Eosinophil# 0.14 X10^3/uL; Eosinophils% 2.1 % (0-5); Hemoglobin 10.6 g/dL (12.0-15.0); Lymphocyte # 1.77 X10^3/ul (0.83-4.51); Lymphocyte % 27.1 % (19-41); Mean Corp Hgb Conc 30.3 g/dL (32-36); Mean Corpuscular Hgb 28.5 pg (27.0-32.0); Mean Corpuscular Volume 94.1 fL (81-99); Mean Platelet Vol. 10.3 fl (6.2-12.0); Monocyte# 0.59 X10^3/uL; NRBC Flagged by Analyzer 0 % (0-5); Neutrophil # 3.97 X10^3/uL (2.7-7.7); Neutrophil % 60.7 % (47-70); Platelet Count 221 K/mm3 (150-450); RBC Distribution Width CV 14.6 % (11.6-14.6); RBC Distribution Width SD 50.6 fl (35.1-43.9); Red Blood Count 3.72 M/mm3 (4.2-5.4); White Blood Count 6.5 K/mm3 (4.4-11.0)
[2021-12-13 16:30] LABS: Vitamin D,25 Hydroxy 46.6 ng/mL
[2021-12-13 16:46] LABS: BUN 19 mg/dL (7-18); Creatinine, Serum 1.01 mg/dL (0.55-1.02); Glucose 155 mg/dL (74-106)
[2021-12-13 16:47] LABS: AST(SGOT) 45 U/L (15-37); Alanine Aminotransfer ALT/SGPT 21 U/L (13-56); Albumin, Serum 3.3 g/dL (3.2-5.0); Alkaline Phosphatase 86 U/L (45-117); Anion Gap 6 (5-15); BUN/Creat Ratio 18.8 RATIO (10-20); Chloride 107 mmol/L (98-107); EST Glomerular Filtration Rate 56 mL/min (>60); Est Glom Filt Rate - Afr Amer 68 mL/min (>60); Globulin 3.2 g/dL (2.2-4.2); Protein, Total 6.5 g/dL (6.4-8.2); Sodium Level 139 mmol/L (136-145); Thyroid Stim Hormone (TSH) 1.38 uIU/mL (0.358-3.74); Uric Acid 4.8 mg/dL (2.6-6.0)
== END | disposition home or self-care (01) ==
LOC: POLAB3 13:51
PROVIDERS: PCP Family Medicine Geriatric Medicine; Visit Provider Family Medicine Geriatric Medicine
DX: E11.9 Type 2 diabetes mellitus without complications (principal); E55.9 Vitamin D deficiency, unspecified; I10 Essential (primary) hypertension; M10.9 Gout, unspecified
CPT/HCPCS: 36415; 80053; 82306; 84443; 84550; 85025

== ENCOUNTER → 2022-01-31 | Outpatient (CLI) | payer MEDICARE, SELFPAY ==
--- NOTE | 2022-01-31 14:17 | VDLE_ITS ---
Reason For Study: Edema RIGHT GSV is normal. CFV is compressible, spontaneous, phasic, competent and demonstrates normal augmentation. FV is compressible, spontaneous, phasic, competent and demonstrates normal augmentation. POP V is compressible, spontaneous, phasic, competent and demonstrates normal augmentation. T/P Trunk is compressible. PTV is compressible. RT PerV is compressible. Procedure This is a venous duplex using B-mode, color flow and spectral Doppler. Exam performed in department. A preliminary report was called and/or faxed to Matthew. VL/Venous Duplex US, Unilateral Interpretation Summary There is no evidence of right lower extremity deep vein thrombosis. Right great saphenous vein appears patent and compressible segmentally. Ordering Physician: Thomas Castro Chi Referring Physician: Thomas Castro Chi Performed By: Clara Levine RVT
== END | disposition home or self-care (01) ==
LOC: CVS 14:15
PROVIDERS: PCP Family Medicine Geriatric Medicine; Referring Provider Family Medicine Geriatric Medicine; Visit Provider Family Medicine Geriatric Medicine
DX: M79.605 Pain in left leg (principal); R60.9 Edema, unspecified
CPT/HCPCS: 93971

== ENCOUNTER → 2022-02-11 | Outpatient (CLI) | payer MEDICARE, SELFPAY ==
[2022-02-11 15:43] LABS: Absolute Lymphocyte Count 2.58 X10^3/uL (0.83-4.51); Absolute Neutrophil Count 5.9 X10^3/uL (2.0-7.7); Basophil# 0.05 X10^3/uL; Basophil% 0.5 % (0-1); Eosinophil# 0.27 X10^3/uL; Eosinophils% 2.8 % (0-5); Hemoglobin 10.1 g/dL (12.0-15.0); Lymphocyte # 2.58 X10^3/ul (0.83-4.51); Lymphocyte % 26.6 % (19-41); Mean Corp Hgb Conc 29.7 g/dL (32-36); Mean Corpuscular Hgb 28.5 pg (27.0-32.0); Mean Corpuscular Volume 95.8 fL (81-99); Monocyte# 0.86 X10^3/uL; Monocyte% 8.9 % (0-10); NRBC Flagged by Analyzer 0 % (0-5); Neutrophil # 5.86 X10^3/uL (2.7-7.7); Neutrophil % 60.5 % (47-70); Platelet Count 257 K/mm3 (150-450); RBC Distribution Width CV 14.9 % (11.6-14.6); RBC Distribution Width SD 52.4 fl (35.1-43.9); Red Blood Count 3.55 M/mm3 (4.2-5.4); White Blood Count 9.7 K/mm3 (4.4-11.0)
[2022-02-11 16:02] LABS: AST(SGOT) 47 U/L (15-37); Alanine Aminotransfer ALT/SGPT 21 U/L (13-56); Albumin, Serum 3.2 g/dL (3.2-5.0); Alkaline Phosphatase 100 U/L (45-117); Anion Gap 8 (5-15); BUN 23 mg/dL (7-18); BUN/Creat Ratio 21.3 RATIO (10-20); Calcium,Total 9.2 mg/dL (8.5-10.1); Chloride 106 mmol/L (98-107); Creatinine, Serum 1.08 mg/dL (0.55-1.02); EST Glomerular Filtration Rate 52 mL/min (>60); Est Glom Filt Rate - Afr Amer 63 mL/min (>60); Globulin 3.3 g/dL (2.2-4.2); Glucose 100 mg/dL (74-106); Potassium 4.2 mmol/L (3.5-5.1); Protein, Total 6.5 g/dL (6.4-8.2); Sodium Level 139 mmol/L (136-145); Thyroid Stim Hormone (TSH) 1.49 uIU/mL (0.358-3.74)
== END | disposition home or self-care (01) ==
LOC: POLAB3 11:57
PROVIDERS: PCP Family Medicine Geriatric Medicine; Visit Provider Family Medicine Geriatric Medicine
DX: R53.83 Other fatigue (principal)
CPT/HCPCS: 36415; 80053; 84443; 85025

== ENCOUNTER → 2022-02-11 | Outpatient (CLI) | payer MEDICARE, SELFPAY | END | disposition home or self-care (01) | LOC: PSN 12:31 | PROVIDERS: PCP Family Medicine Geriatric Medicine; Referring Provider Family Medicine Geriatric Medicine; Visit Provider Family Medicine Geriatric Medicine | DX: R68.83 Chills (without fever) (principal); R53.83 Other fatigue | CPT/HCPCS: 36415; 80053; 84443; 85025; 87635; 87804; 87807; C9803; U0003; U0005 ==

== ENCOUNTER → 2022-03-05 | Outpatient (CLI) | payer MEDICARE, SELFPAY ==
[2022-03-05 13:38] LABS: Absolute Lymphocyte Count 1.68 X10^3/uL (0.83-4.51); Absolute Neutrophil Count 4.2 X10^3/uL (2.0-7.7); Basophil# 0.04 X10^3/uL; Basophil% 0.6 % (0-1); Eosinophil# 0.29 X10^3/uL; Eosinophils% 4.2 % (0-5); Hematocrit 32.4 % (37-47); Lymphocyte # 1.68 X10^3/ul (0.83-4.51); Lymphocyte % 24.5 % (19-41); Mean Corp Hgb Conc 30.9 g/dL (32-36); Mean Corpuscular Hgb 28.7 pg (27.0-32.0); Mean Corpuscular Volume 92.8 fL (81-99); Mean Platelet Vol. 10.7 fl (6.2-12.0); Monocyte# 0.66 X10^3/uL; Monocyte% 9.6 % (0-10); NRBC Flagged by Analyzer 0 % (0-5); Neutrophil # 4.17 X10^3/uL (2.7-7.7); Neutrophil % 60.7 % (47-70); Platelet Count 195 K/mm3 (150-450); Red Blood Count 3.49 M/mm3 (4.2-5.4); White Blood Count 6.9 K/mm3 (4.4-11.0)
[2022-03-05 13:44] LABS: Vitamin D,25 Hydroxy 44.3 ng/mL
[2022-03-05 13:56] LABS: ALB/GLOB Ratio 0.9 RATIO (0.9-2.4); AST(SGOT) 41 U/L (15-37); Alanine Aminotransfer ALT/SGPT 19 U/L (13-56); Albumin, Serum 3.1 g/dL (3.2-5.0); Alkaline Phosphatase 94 U/L (45-117); Anion Gap 7 (5-15); BUN 20 mg/dL (7-18); BUN/Creat Ratio 19.8 RATIO (10-20); Calcium,Total 8.9 mg/dL (8.5-10.1); Chloride 108 mmol/L (98-107); Creatinine, Serum 1.01 mg/dL (0.55-1.02); EST Glomerular Filtration Rate 56 mL/min (>60); Est Glom Filt Rate - Afr Amer 68 mL/min (>60); Globulin 3.5 g/dL (2.2-4.2); Glucose 140 mg/dL (74-106); Potassium 4.1 mmol/L (3.5-5.1); Protein, Total 6.6 g/dL (6.4-8.2); Sodium Level 140 mmol/L (136-145); Thyroid Stim Hormone (TSH) 1.66 uIU/mL (0.358-3.74); Uric Acid 4.8 mg/dL (2.6-6.0)
== END | disposition home or self-care (01) ==
LOC: POLAB3 08:56
PROVIDERS: PCP Family Medicine Geriatric Medicine; Visit Provider Family Medicine Geriatric Medicine
DX: E55.9 Vitamin D deficiency, unspecified (principal); I10 Essential (primary) hypertension; M10.9 Gout, unspecified
CPT/HCPCS: 36415; 80053; 82306; 84443; 84550; 85025

== ENCOUNTER → 2022-03-07 | Outpatient (CLI) | payer MEDICARE, SELFPAY ==
[2022-03-07 21:01] LABS: M R Staph aureus DNA By PCR POSITIVE (Negative); Probe Check PASS; Staph aureus DNA By PCR POSITIVE (Negative)
== END | disposition home or self-care (01) ==
LOC: POLAB3 15:45
PROVIDERS: PCP Family Medicine Geriatric Medicine; Visit Provider Family Medicine Geriatric Medicine
DX: L03.119 Cellulitis of unspecified part of limb (principal); T07.XXXA Unspecified multiple injuries, initial encounter
CPT/HCPCS: 87070; 87077; 87186; 87205; 87640

== ENCOUNTER 2022-05-15 11:00 | Outpatient (RCR) | payer MEDICARE, SELFPAY ==
--- NOTE | 2021-12-24 13:20 | HP.PTEVAL_ITS ---
Patient's Visit Information RAMIRO BHAKTA is a 76 year old F referred to Physical Therapy by Dr. Thomas Castro MD with a diagnosis of Bilateral Shoulder Pain and Lumbar Pain. Date of Evaluation: 12/24/21 Physical Therapist: Sheryl Briseno DPT - Visit Plan Frequency: 1x/Week Duration: 4 Weeks Plan: Focus on LE and core strength/stabilization, postural correction, UE and scap s/s and UE ROM. HEP Given IE: table walk away, seated TA contraction, scapular retractions- Postural education - Subjective Patient reports that she is having issues with her shoulders and low back pain. She has OA and tried to go to the arthritis MD- she tried a lot of medication but she could not find anything that worked for her without making her sick so she stopped going to her. She feels like its progressively getting worse. Both shoulders are bad- hard medicine cabinet, put things away. She has lots of popping and clicking. She also has left sided sciatica. Shoulders: insidious onset- left hand dominate. She does not have pain in the shoulders just decreased mobility. Both arms go numb when she is sleeping or when she is just sitting in a chair. Diminished digital learning platforms manager strength and finger dexterity. She uses a walker due to knee surgeries- on/off and off forever- rollator inside the house and a 4 wheeled walker when she goes out. She lives alone- full I with all ADL's but reports she is barely able to shower and clean. She has three grab bars in the shower Lumbar spine: had back surgery 20 years ago- blew out a few discs- cleaned it out but does not have any metal in her back. Left sided pain and radiates down the left leg. Sharp shooting down to the toes. In the AM she can't stand up straight- in the shower she can get moving better. Eases: sitting, heat. Agg: vacuuming, scrubbing, walking, standing. Sleep: does not sleep well- back hurts - turning over does not feel good. Left ankle is swollen- she saw MD who reports its the humidity- has had Doppler's, PMHx/Meds: no changes- see scanned in chart. - Objective Posture: FH, RS increased kyphosis- can correct with verbal and tactile cues but does not maintain. Gait- WW- decreased stance- hunched over walker- decreased stride length and poor heel/toe pattern. Slow pattern. HR/TR: able with UE A. SLS: weight shift but unable to SLS. Sensation: WNL to UE and LE with gross touch bilaterally. Palpation: not tender to touch in UE, scapular region, cervical/thoracic or lumbar spine. Tender along left glut. ROM: Shoulder/Elbow/Wrist: WFL in all planes, Lumbar: Flexion: hands to knees, Extn: neutral SB/Rot: decreased by 50%, Hip/Knee/Ankle: WFL. Strength: Core: poor, Scap: poor, Shoulder: 3+/5, Elbow: 4/5, Wrist: 5/5 Concrete Pointer: equal side to side, Hip: 4-/5 throughout, Knee: 4+/5, Ankle: 5/5. Flex: HS: severe, Gastroc: severe. Special Test: SLR: positive, Dural Signs: positive left - Special Tests R Shoulder Empty Can - SS: Positive R Shoulder Belly Press - SupScap: Positive R Shoulder Neer - Impingement: Positive R Shoulder Castillo Jaron - Impingement: Positive L Shoulder Empty Can - SS: Positive L Shoulder Belly Press - SupScap: Positive L Shoulder Neer - Impingement: Positive L Shoulder Castillo Jaron - Impingement: Positive - Balance/Special Test Scores Oswestry Low Back Score: 33 - Goals Goal 1:: Patient will be I with HEP and progression Goal Time Frame: 4-6 Weeks Goal 2:: Patient will ambulate >300 feet with LRD and no rest breaks Goal Time Frame: 4-6 Weeks Goal 3:: Patient will maintain proper posture t/o tx session to demo increased core s/s Goal Time Frame: 4-6 Weeks Goal 4:: Patient will report 80% improvement Goal Time Frame: 4-6 Weeks - Rehabilitation Potential Physical Therapy Diagnosis: Patient presents with hypomobility- she has decreased scap, core, UE and LE strength/stabilization, flex and muscular endurance leading to poor posture and increased pain with ADL's. Rehabilitation Potential: Fair - Anticipated Interventions Patient/Client Instruction: Educate patient on: Benefits of Fitness Program Therapeutic Exercise to Include: Strength training, Endurance training, Balance training, Body mechanics, Postural training, Flexibilty training, Gait and locomotor training, Neuromotor development, Relaxation training, In an aquatic setting, Dynamic Lumbar Stabilization, Scapular Strength/Stabilization For the Purpose of:: To improve muscle performance and motor function Thank you for the opportunity to evaluate your patient. For Medicare and Medicare HMO plans, please review the plan of care and approve it. It will need to be FAXED BACK to us at [phone] for Medicare purposes. For Medicare only, by signing this I certify the plan of care. Please let me know if there are questions or concerns regarding this plan of care. Physician Signature: Date:
--- NOTE | 2022-01-23 11:42 | HP.PTREVAL ---
Dr. Thomas Castro MD, It has been my pleasure to treat RAMIRO BHAKTA over the last 9 visits for Bilateral Shoulder Pain and Lumbar Pain. Please see the progress note below for an update on the physical therapy plan of care! Subjective: Patient reports that she is better but expected more. She can't lift her arms overhead to put dishes in the cupboard. Goes back to the MD in February. She feels that coming to PT is really helpful and would like to continue coming to therapy. She was really sore yesterday from all the work in therapy and then put hot packs on her shoulders/back and it eased off. She feels that she is 50% better. She was able to vacuum her whole house and only had to sit 4x this week. Objective/Function: Posture: FH, RS increased kyphosis- can correct with verbal and tactile cues but does not maintain. Gait- WW- decreased stance- better posture in walker- decreased stride length and poor heel/toe pattern. Slow pattern. HR/TR: able with UE A. SLS: 2-3 seconds. Sensation: WNL to UE and LE with gross touch bilaterally. Palpation: not tender to touch in UE, scapular region, cervical/thoracic or lumbar spine. Tender along left glut. ROM: Shoulder/Elbow/Wrist: WFL in all planes, Lumbar: Flexion: hands to knees, Extn: neutral SB/Rot: decreased by 50%, Hip/Knee/Ankle: WFL. Strength: Core: poor, Scap: poor, Shoulder: 3+/5, Elbow: 4/5, Wrist: 5/5 C D Reactor Operator: equal side to side, Hip: 4-/5 throughout, Knee: 4+/5, Ankle: 5/5. Flex: HS: severe, Gastroc: severe. Special Test: SLR: positive, Dural Signs: positive left. - Special Tests. R Shoulder Empty Can - SS: Positive. R Shoulder Belly Press - SupScap: Positive. R Shoulder Neer - Impingement: Positive. R Shoulder Castillo Jaron - Impingement: Positive. L Shoulder Empty Can - SS: Positive. L Shoulder Belly Press - SupScap: Positive. L Shoulder Neer - Impingement: Positive. L Shoulder Castillo Jaron - Impingement: Positive Plan Plan: 01/23/22: More standing exercises intermittent. Focus on LE and core strength/stabilization, postural correction, UE and scap s/s and UE ROM. Balance/Gait/Functional tests - Balance/Special Test Scores Oswestry Low Back Score: 25 Goals Goal 1:: Patient will be I with HEP and progression Goal Time Frame: 4-6 Weeks Goal Progress: Progressing Goal 2:: Patient will ambulate >300 feet with LRD and no rest breaks Goal Time Frame: 4-6 Weeks Goal Progress: Progressing Goal 3:: Patient will maintain proper posture t/o tx session to demo increased core s/s Goal Time Frame: 4-6 Weeks Goal Progress: Progressing Goal 4:: Patient will report 80% improvement Goal Time Frame: 4-6 Weeks Goal Progress: Progressing Anticipated Interventions Patient/Client Instruction: Educate patient on: Benefits of Fitness Program Therapeutic Exercise to Include: Strength training, Endurance training, Balance training, Body mechanics, Postural training, Flexibilty training, Gait and locomotor training, Neuromotor development, Relaxation training, In an aquatic setting, Dynamic Lumbar Stabilization, Scapular Strength/Stabilization For the Purpose of:: To improve muscle performance and motor function Please do not hesitate to contact me at [phone] by phone or if you have questions or concerns regarding this new plan of care! Sincerely, Sheryl Briseno DPT
--- NOTE | 2022-04-11 11:52 | HP.PTREVAL ---
Dr. Thomas Castro MD, It has been my pleasure to treat RAMIRO BHAKTA over the last 11 visits for Bilateral Shoulder Pain and Lumbar Pain. Please see the progress note below for an update on the physical therapy plan of care! Subjective: Patient reports that she hasn't been here in over a month due to her passing away. She fell about 1.5 weeks ago- She hurt her right knee, both hands, shoulders and neck are also bothering her. They did not take her to the hospital but they just got her up. She went to see Dr. Castro due to the laceration on her right arm. She had pain medications and antibiotics. Today her whole body hurts. She feels her shoulders are getting worse now that she is not in therapy. She is currently not doing any exercises at home. She is getting around okay with a rollator around the house- she is having neighbors bring groceries in. Objective/Function: Posture: FH, RS increased kyphosis- can correct with verbal and tactile cues but does not maintain. Gait- WW- decreased stance- hunched over walker- decreased stride length and poor heel/toe pattern. Slow pattern. HR/TR: able with UE A. SLS: weight shift but unable to SLS. Sensation: WNL to UE and LE with gross touch bilaterally. Palpation: tender to touch in UE, scapular region, cervical/thoracic or lumbar spine. Tender along left glut and medial right knee ROM: Shoulder: Flexion: 90 degrees, Abd: 90 degrees-Elbow/Wrist: WFL in all planes, Lumbar: Flexion: hands to knees, Extn: neutral SB/Rot: decreased by 50%, Hip/Knee/Ankle: WFL. Strength: Core: poor, Scap: poor, Shoulder: 2+/5, Elbow: 4/5, Wrist: 5/5 Wood Club Neck Whipper: equal side to side, Hip: 4-/5 throughout, Knee: 4+/5, Ankle: 5/5. Flex: HS: severe, Gastroc: severe. Special Test: SLR: positive, Dural Signs: positive left Plan Plan: 04/11/22: Continue 1x a week with more exercise at home due to co-pay. 01/23/22: More standing exercises intermittent. Focus on LE and core strength/stabilization, postural correction, UE and scap s/s and UE ROM. Balance/Gait/Functional tests - Balance/Special Test Scores Oswestry Low Back Score: 25 Goals Goal 1:: Patient will be I with HEP and progression Goal Time Frame: 4-6 Weeks Goal Progress: Progressing Goal 2:: Patient will ambulate >300 feet with LRD and no rest breaks Goal Time Frame: 4-6 Weeks Goal Progress: Progressing Goal 3:: Patient will maintain proper posture t/o tx session to demo increased core s/s Goal Time Frame: 4-6 Weeks Goal Progress: Progressing Goal 4:: Patient will report 80% improvement Goal Time Frame: 4-6 Weeks Goal Progress: Progressing Anticipated Interventions Patient/Client Instruction: Educate patient on: Benefits of Fitness Program Therapeutic Exercise to Include: Strength training, Endurance training, Balance training, Body mechanics, Postural training, Flexibilty training, Gait and locomotor training, Neuromotor development, Relaxation training, In an aquatic setting, Dynamic Lumbar Stabilization, Scapular Strength/Stabilization For the Purpose of:: To improve muscle performance and motor function Please do not hesitate to contact me at [phone] by phone or if you have questions or concerns regarding this new plan of care! Sincerely, Sheryl Briseno DPT
--- NOTE | 2022-07-18 16:47 | HP.PT.NRP ---
RAMIRO BHAKTA was seen in my office for initial evaluation on 12/24/21. The following Plan of Care was established for this patient: Initial Frequency: 1x/Week Initial Duration: 4 Weeks Patient/Client Instruction: Educate patient on: Benefits of Fitness Program Therapeutic Exercise to Include: Strength training, Endurance training, Balance training, Body mechanics, Postural training, Flexibilty training, Gait and locomotor training, Neuromotor development, Relaxation training, In an aquatic setting, Dynamic Lumbar Stabilization, Scapular Strength/Stabilization For the Purpose of:: To improve muscle performance and motor function This patient was last seen in our office . Pertinent comments regarding their Physical therapy will appear below: Patient has not attended PT in over 30 days- appropriate to be d/c and return to MD for further evaluation At this point I will be discontinuing this patient from physical therapy. I would be happy to see this patient again in the future if found appropriate by the physician. Thank you! Sheryl Briseno, DPT Balance/Gait/Functional tests - Balance/Special Test Scores Oswestry Low Back Score: 25
== END 2022-05-15 19:00 | disposition home or self-care (01) ==
LOC: PT 11:00
PROVIDERS: PCP Family Medicine Geriatric Medicine; Referring Provider Family Medicine Geriatric Medicine; Visit Provider Family Medicine Geriatric Medicine
DX: M54.50 Low back pain, unspecified (principal); M75.50 Bursitis of unspecified shoulder
CPT/HCPCS: 97110; 97162; 97164

== ENCOUNTER → 2022-06-03 | Outpatient (CLI) | payer MEDICARE, SELFPAY ==
--- NOTE | 2022-06-03 12:25 | RAD_ITS ---
INDICATION: PAIN EXAMINATION/TECHNIQUE: X-RAY - RIGHT XR Knee 3 Views 3 VIEWS COMPARISON: None. FINDINGS: SOFT TISSUES: No soft tissue swelling or gas. Knee prosthesis in anatomic alignment. BONES/JOINTS: No acute fracture or pathologic lucency. No sclerotic or destructive changes observed. RAD/Knee 3 Views IMPRESSION: No acute finding status post right knee replacement. Electronically Signed: Jesse Vernon MD at 0:56 EST ,
--- NOTE | 2022-06-03 12:25 | RAD_ITS ---
INDICATION: Trauma, pain after fall EXAMINATION/TECHNIQUE: X-RAY - RIGHT XR Hip Unilateral with Pelvis when performed; 2-3 Views 3 VIEWS COMPARISON: None. FINDINGS: SOFT TISSUES: No soft tissue swelling or gas. No radiopaque foreign body. BONES/JOINTS: No acute fracture. Joint spaces anatomically maintained. No sclerotic or destructive changes observed. RAD/HIP, UNI W/ Pelvis 2-3 Views IMPRESSION: No acute bony abnormality. Electronically Signed: Jesse Vernon MD at 0:58 EST ,
[2022-06-03 13:11] LABS: Absolute Lymphocyte Count 1.87 X10^3/uL (0.83-4.51); Absolute Neutrophil Count 4.7 X10^3/uL (2.0-7.7); Basophil# 0.05 X10^3/uL; Basophil% 0.6 % (0-1); Eosinophil# 0.37 X10^3/uL; Eosinophils% 4.7 % (0-5); Hematocrit 36.4 % (37-47); Hemoglobin 11.3 g/dL (12.0-15.0); Lymphocyte # 1.87 X10^3/ul (0.83-4.51); Lymphocyte % 23.7 % (19-41); Mean Corpuscular Hgb 29.1 pg (27.0-32.0); Mean Corpuscular Volume 93.8 fL (81-99); Mean Platelet Vol. 10.5 fl (6.2-12.0); Monocyte# 0.88 X10^3/uL; Monocyte% 11.1 % (0-10); NRBC Flagged by Analyzer 0 % (0-5); Neutrophil # 4.71 X10^3/uL (2.7-7.7); Neutrophil % 59.6 % (47-70); Platelet Count 195 K/mm3 (150-450); RBC Distribution Width CV 14.6 % (11.6-14.6); RBC Distribution Width SD 50.1 fl (35.1-43.9); Red Blood Count 3.88 M/mm3 (4.2-5.4); White Blood Count 7.9 K/mm3 (4.4-11.0)
[2022-06-03 13:26] LABS: Vitamin D,25 Hydroxy 35.4 ng/mL
[2022-06-03 13:46] LABS: ALB/GLOB Ratio 1.1 RATIO (0.9-2.4); AST(SGOT) 43 U/L (15-37); Alanine Aminotransfer ALT/SGPT 20 U/L (13-56); Albumin, Serum 3.6 g/dL (3.2-5.0); Alkaline Phosphatase 118 U/L (45-117); Anion Gap 10 (5-15); BUN 23 mg/dL (7-18); BUN/Creat Ratio 22.3 RATIO (10-20); Calcium,Total 9.4 mg/dL (8.5-10.1); Chloride 103 mmol/L (98-107); Creatinine, Serum 1.03 mg/dL (0.55-1.02); EST Glomerular Filtration Rate 55 mL/min (>60); Est Glom Filt Rate - Afr Amer 67 mL/min (>60); Globulin 3.3 g/dL (2.2-4.2); Glucose 110 mg/dL (74-106); Potassium 4.6 mmol/L (3.5-5.1); Protein, Total 6.9 g/dL (6.4-8.2); Sodium Level 138 mmol/L (136-145); Thyroid Stim Hormone (TSH) 2.34 uIU/mL (0.358-3.74); Uric Acid 5.2 mg/dL (2.6-6.0)
== END | disposition home or self-care (01) ==
PROVIDERS: PCP Family Medicine Geriatric Medicine; Visit Provider Family Medicine Geriatric Medicine
DX: E55.9 Vitamin D deficiency, unspecified (principal); E11.9 Type 2 diabetes mellitus without complications; I10 Essential (primary) hypertension; M10.9 Gout, unspecified; M25.561 Pain in right knee; M25.551 Pain in right hip; Z96.651 Presence of right artificial knee joint
CPT/HCPCS: 36415; 73502; 73562; 80053; 82306; 84443; 84550; 85025

== ENCOUNTER → 2022-07-02 | Outpatient (CLI) | payer MEDICARE, SELFPAY ==
[2022-07-02 16:47] LABS: Absolute Neutrophil Count 3.5 X10^3/uL (2.0-7.7); Basophil# 0.04 X10^3/uL; Basophil% 0.6 % (0-1); Eosinophil# 0.28 X10^3/uL; Eosinophils% 4.3 % (0-5); Hematocrit 36.8 % (37-47); Hemoglobin 11.1 g/dL (12.0-15.0); Lymphocyte % 32.1 % (19-41); Mean Corp Hgb Conc 30.2 g/dL (32-36); Mean Corpuscular Hgb 28.5 pg (27.0-32.0); Mean Corpuscular Volume 94.6 fL (81-99); Mean Platelet Vol. 10.6 fl (6.2-12.0); Monocyte# 0.63 X10^3/uL; Monocyte% 9.6 % (0-10); NRBC Flagged by Analyzer 0 % (0-5); Neutrophil # 3.47 X10^3/uL (2.7-7.7); Neutrophil % 53.1 % (47-70); Platelet Count 189 K/mm3 (150-450); RBC Distribution Width CV 14.8 % (11.6-14.6); RBC Distribution Width SD 50.9 fl (35.1-43.9); Red Blood Count 3.89 M/mm3 (4.2-5.4); White Blood Count 6.5 K/mm3 (4.4-11.0)
[2022-07-02 17:11] LABS: Anion Gap 8 (5-15); BNP,B-Type NATRIURETIC PEPTIDE 101.4 pg/mL (0-100); BUN 23 mg/dL (7-18); BUN/Creat Ratio 21.9 RATIO (10-20); Calcium,Total 8.7 mg/dL (8.5-10.1); Chloride 109 mmol/L (98-107); Creatinine, Serum 1.05 mg/dL (0.55-1.02); EST Glomerular Filtration Rate 54 mL/min (>60); Est Glom Filt Rate - Afr Amer 65 mL/min (>60); Glucose 156 mg/dL (74-106); Potassium 4.3 mmol/L (3.5-5.1); Sodium Level 143 mmol/L (136-145)
[2022-07-02 17:17] LABS: Ferritin 14 ng/mL (8-252); Iron 29 ug/dL (50-170); Iron Binding Capacity,Total 402 ug/dL (250-450); PERCENT IRON SATURATION 7.2 % (15.0-55.0)
== END | disposition home or self-care (01) ==
LOC: POLAB3 16:04
PROVIDERS: Internal Medicine Hematology & Oncology; PCP Family Medicine Geriatric Medicine; Visit Provider Family Medicine Geriatric Medicine
DX: R60.9 Edema, unspecified (principal); D50.0 Iron deficiency anemia secondary to blood loss (chronic); N18.9 Chronic kidney disease, unspecified; D63.1 Anemia in chronic kidney disease
CPT/HCPCS: 36415; 80048; 82728; 83540; 83550; 83880; 85025

== ENCOUNTER → 2022-07-09 | Outpatient (CLI) | payer MEDICARE, SELFPAY ==
--- NOTE | 2022-07-09 14:53 | RAD_ITS ---
STUDY: X-RAY - LEFT ANKLE REASON FOR EXAM: Female, 77 years old. Ankle pain. TECHNIQUE: 3 view(s) of the ankle. COMPARISON: None. FINDINGS: Osteopenia. Moderate arthrosis of the tibiotalar joint. Moderate arthrosis of the subtalar joint. Large inferior calcaneal spur Moderate arthrosis of the mid. Ossification of the distal Achilles tendon. Diffuse soft tissue swelling RAD/Ankle min 3 Views IMPRESSION: Osteopenia with osteoarthritic changes as described, inferior calcaneal spur, ossification of the distal Achilles tendon and diffuse soft tissue swelling. No acute abnormality or erosive changes. Electronically Signed: Bhavin Espinosa, at 11:34 EST ,
--- NOTE | 2022-07-09 14:53 | RAD_ITS ---
STUDY: X-RAY - LEFT KNEE REASON FOR EXAM: Female, 77 years old. A new. TECHNIQUE: 3 view(s) of the knee. COMPARISON: June 03, 2022. FINDINGS: Placement of revision total knee arthroplasty. Anatomic alignment without complications. Diffuse soft tissue swelling and small joint effusion. RAD/Knee 3 Views IMPRESSION: Revision total knee arthroplasty in anatomic alignment without complications. Small joint effusion. Electronically Signed: Bhavin Espinosa, at 11:27 EST ,
== END | disposition home or self-care (01) ==
PROVIDERS: PCP Family Medicine Geriatric Medicine; Referring Provider Family Medicine Geriatric Medicine; Visit Provider Family Medicine Geriatric Medicine
DX: M25.562 Pain in left knee (principal); M25.572 Pain in left ankle and joints of left foot
CPT/HCPCS: 73562; 73610

== ENCOUNTER → 2022-08-13 | Outpatient (CLI) | payer MEDICARE, SELFPAY ==
--- NOTE | 2022-08-13 12:41 | VDLE_ITS ---
Reason For Study: swelling Procedure LEFT This is a venous duplex using B-mode, color GSV is normal. flow and spectral Doppler. CFV is compressible, spontaneous, phasic, Exam performed in department. competent, and demonstrates normal The exam was abbreviated due to the COVID 19 augmentation. protocol. FV is compressible, spontaneous, phasic, The exam was diagnostic. competent and demonstrates normal A preliminary report was called and/or faxed augmentation. to Dr. Hernandez. POP V is compressible, spontaneous, phasic, competent and demonstrates normal augmentation. T/P Trunk is compressible. PTV is compressible. LT PerV is compressible. VL/Venous Duplex US, Unilateral Interpretation Summary Deep veins of the left lower extremity are patent and compressible segmentally. There is no evidence of left lower extremity deep vein thrombosis. The left great saphenous vein ruchi ears patent and compressible segmentally. Ordering Physician: Christelle Hernandez Performed By: Jacinto Alcaraz RVT
== END | disposition home or self-care (01) ==
LOC: CVS 12:39
PROVIDERS: PCP Family Medicine Geriatric Medicine; Referring Provider Internal Medicine; Visit Provider Internal Medicine
DX: M79.89 Other specified soft tissue disorders (principal)
CPT/HCPCS: 93971

== ENCOUNTER → 2022-09-19 | Outpatient (CLI) | payer MEDICARE, SELFPAY ==
[2022-09-19 14:34] LABS: Basophil# 0.06 X10^3/uL; Basophil% 0.9 % (0-1); Eosinophils% 5.7 % (0-5); Hematocrit 35.7 % (37-47); Hemoglobin 11.1 g/dL (12.0-15.0); Lymphocyte % 28.4 % (19-41); Mean Corp Hgb Conc 31.1 g/dL (32-36); Mean Corpuscular Hgb 29.4 pg (27.0-32.0); Mean Corpuscular Volume 94.4 fL (81-99); Mean Platelet Vol. 9.7 fl (6.2-12.0); Monocyte# 0.62 X10^3/uL; Monocyte% 8.8 % (0-10); NRBC Flagged by Analyzer 0 % (0-5); Neutrophil # 3.95 X10^3/uL (2.7-7.7); Neutrophil % 55.9 % (47-70); Platelet Count 187 K/mm3 (150-450); RBC Distribution Width CV 14.8 % (11.6-14.6); RBC Distribution Width SD 51.1 fl (35.1-43.9); Red Blood Count 3.78 M/mm3 (4.2-5.4); White Blood Count 7.1 K/mm3 (4.4-11.0)
[2022-09-19 15:08] LABS: AST(SGOT) 40 U/L (15-37); Alanine Aminotransfer ALT/SGPT 16 U/L (13-56); Albumin, Serum 3.3 g/dL (3.2-5.0); Alkaline Phosphatase 125 U/L (45-117); Anion Gap 4 (5-15); BUN 24 mg/dL (7-18); BUN/Creat Ratio 23.1 RATIO (10-20); Calcium,Total 8.9 mg/dL (8.5-10.1); Chloride 110 mmol/L (98-107); Creatinine, Serum 1.04 mg/dL (0.55-1.02); EST Glomerular Filtration Rate 54 mL/min (>60); Est Glom Filt Rate - Afr Amer 66 mL/min (>60); Ferritin 19 ng/mL (8-252); Globulin 3.3 g/dL (2.2-4.2); Glucose 167 mg/dL (74-106); Iron 59 ug/dL (50-170); Iron Binding Capacity,Total 358 ug/dL (250-450); PERCENT IRON SATURATION 16.5 % (15.0-55.0); Potassium 3.8 mmol/L (3.5-5.1); Protein, Total 6.6 g/dL (6.4-8.2); Sodium Level 140 mmol/L (136-145)
== END | disposition home or self-care (01) ==
LOC: LAB 13:46 → LAB.FUTURE 13:47 → LAB 13:48
PROVIDERS: Internal Medicine Gastroenterology; PCP Internal Medicine
DX: D64.9 Anemia, unspecified (principal)
CPT/HCPCS: 36415; 80053; 82728; 83540; 83550; 85025

== ENCOUNTER → 2022-09-27 | Outpatient (CLI) | payer MEDICARE, SELFPAY ==
--- NOTE | 2022-09-27 12:53 | ECHOD_ITS ---
Reason For Study: EDEMA Procedure This was a 2D Doppler, Color Flow transthoracic echocardiogram. The study was technically difficult. Patient declines definity. Exam performed in department. Left Ventricle Mild concentric left ventricular hypertrophy. The left ventricular ejection fraction is 65 %. Stage 2 diastolic dysfunction. Right Ventricle Normal right ventricle. Atria The left atrium is mildly enlarged. The right atrium is not well visualized. Mitral Valve Trivial mitral valve insufficiency. Tricuspid Valve Trivial tricuspid valve insufficiency. Right ventricular systolic pressure estimated to be 43 mmHg. Aortic Valve Aortic sclerosis, no stenosis. Pulmonic Valve The pulmonic valve is not well visualized. Great Vessels Normal sized aortic root. Pericardium/Pleural No pericardial effusion. MMode/2D Measurements & Calculations LVIDd: 4.7 cm IVSd: 0.84 cm Ao root diam: 3.1 cm LVIDs: 2.8 cm LVPWd: 1.2 cm FS: 39.6 % LAV(MOD-bp): 71.9 ml LA A4 area: 27.9 cm2 RA A4 area: 8.1 cm2 LAV(MOD-bp) Indexed: 36.0 ml/m2 LAV(MOD-sp2): 42.9 ml LAV(MOD-sp4): 104.2 ml TAPSE_phl: 2.5 cm Time Measurements MV dec time: 0.31 sec Doppler Measurements & Calculations MV E max rico: 53.8 cm/sec Lat Peak E' Rico: 4.9 cm/sec Med Peak E' Rico: 6.5 cm/sec MV A max rico: 92.1 cm/sec E/E' lat: 11.0 E/E' med: 8.3 MV E/A: 0.58 MV V2 max: 96.1 cm/sec Ao V2 max: 151.9 cm/sec MV max P.7 mmHg MV dec slope: 175.3 cm/sec2 Ao max P.2 mmHg MV V2 mean: 61.8 cm/sec Ao V2 mean: 105.9 cm/sec MV mean P.7 mmHg Ao mean P.1 mmHg MV V2 VTI: 26.6 cm Ao V2 VTI: 38.8 cm AV (velocity ratio): 0.84 LV V1 max: 123.4 cm/sec PA V2 max: 97.1 cm/sec TR max rico: 310.9 cm/sec LV V1 max P.1 mmHg PA V2 mean: 67.5 cm/sec TR max P.7 mmHg LV V1 mean P.7 mmHg LV V1 mean: 91.2 cm/sec LV V1 VTI: 32.4 cm ECHO/Echo Complete Interpretation Summary The left ventricular ejection fraction is 65 %. Stage 2 diastolic dysfunction. The left atrium is mildly enlarged. Right ventricular systolic pressure estimated to be 43 mmHg. Ordering Physician: KEO TORRES Referring Physician: KEO TORRES Performed By: Elizabeth Mack RCS
== END | disposition home or self-care (01) ==
LOC: CVS 12:52
PROVIDERS: PCP Family Medicine Geriatric Medicine
DX: R60.0 Localized edema (principal); R06.02 Shortness of breath
CPT/HCPCS: 93306

== ENCOUNTER → 2022-11-12 | Outpatient (CLI) | payer MEDICARE, SELFPAY ==
[2022-11-12 13:35] LABS: Hepatitis B Surface Antigen Non-Reactive (Nonreactive); Hepatitis C Antibody Non-Reactive (Nonreactive); Vitamin B12 302 pg/mL (211-911)
[2022-11-13 14:10] LABS: ANTINUCLEAR ANTIBODIES DIRECT Negative (Negative); Alpha Antitrypsin Serum 169 mg/dL (101-187); Anti-Smooth Muscle ABS 4 Units (0-19); Ceruloplasmin 22.6 mg/dL (19.0-39.0); Hepatitis B Core Ab Total Negative (Negative)
== END | disposition home or self-care (01) ==
LOC: LAB 11:02
PROVIDERS: PCP Internal Medicine
DX: D64.9 Anemia, unspecified (principal); R79.89 Other specified abnormal findings of blood chemistry; Z86.010 Personal history of colon polyps
CPT/HCPCS: 36415; 82103; 82390; 82607; 82746; 83516; 86038; 86225; 86235; 86704; 86803; 87340

== ENCOUNTER → 2023-01-13 | Outpatient (CLI) | payer MEDICARE, SELFPAY ==
--- NOTE | 2023-01-13 12:29 | BI_ITS ---
MAMMOGRAPHY - BILATERAL SCREENING REASON FOR EXAM: Female, 77 years old. Routine annual screening examination. PERTINENT HISTORY: Non-contributory. TECHNIQUE: Digital bilateral breast pritesh (3D mammographic acquisition) in the CC and MLO projections. 2-D mediolateral oblique (MLO) and craniocaudad (CC) views of both breasts were obtained. CAD: Full Field Digital Mammography with Computer Added Detection was performed. COMPARISON: Screening mammogram from 05/31/2021, 02/03/2020. FINDINGS: Breast Composition: There are scattered areas of fibroglandular density. There are no dominant masses or suspicious calcifications. No other significant abnormalities are identified. There has been no significant change since the prior study. BI/SCRN MAMM (CAD)W/PRITESH BILAT IMPRESSION: Stable bilateral screening mammogram. Yearly follow-up mammogram recommended. (A) ASSESSMENT CATEGORY: BIRADS Category 1: Negative. A letter regarding these results will be sent to the patient by the facility within 30 days. Approximately 10% of breast cancers are not detected by mammography. A normal mammogram should not delay biopsy of a clinically suspicious abnormality. Electronically Signed: Terry Quiros DO at 15:48 EDT ,
== END | disposition home or self-care (01) ==
LOC: OPBI 12:28
PROVIDERS: PCP Internal Medicine; Referring Provider Internal Medicine; Visit Provider Internal Medicine
DX: Z12.31 Encounter for screening mammogram for malignant neoplasm of breast (principal)
CPT/HCPCS: 77063; 77067

== ENCOUNTER 2023-03-11 14:00 | Outpatient (RCR) | payer MEDICARE, SELFPAY ==
--- NOTE | 2022-08-07 13:29 | HP.PTEVAL_ITS ---
Patient's Visit Information RAMIRO BHAKTA is a 77 year old F referred to Physical Therapy by Dr. Reuben Martines DPM with a diagnosis of RIGHT/LEFT PLANTAR FASCITIS. Date of Evaluation: 08/07/22 Physical Therapist: Prakash Ruiz PT, Cert MDT, OCS - Visit Plan Frequency: 2x /Week Duration: 4 Weeks Plan: PATIENT IS HIGHLY IRRITABLE FEET OTHER COMORBITIES. USES FWW , VISION - Subjective This 77 y/o female presents to physical therapy for plantar fasciitis bilateral. Patient has multiple comorbities to influence patient low back pain s/p lumbar surgery ~ 20 years ago ,right TKR ,OA feet /back ,skin CA surgery legally blind ,gallbladder ,uses fww for gait. Patient has seen ortho for lumbar and knees. Patient has chronic edema in lower legs left > right. Patient has had PT in past. Patient left foot is worst than right. Location of pain located plantarfascitis and dorsal foot. Symptoms worse with walking and standing. Patient has paresthesia/tingling in feet .Patient uses compression stocks and has orthotics. SOCAIL: single. VOCATION: retired. Patient unable to take medication. Patient had x-rays showed spurs. Patient pain affects QOL and function has pain multiple areas - Pain Left Foot Pain Intensity (Out of 10): 8 Pain Intensity Range: 10 Right Foot Pain Intensity (Out of 10): 5 - Objective POSTURE: pes planus with calcaneal valgus. GAIT: reciprocal pattern antalgic gait forward posture slow adrian decrease vision hips/knees flexed. NEURO: c/o paresthesia left foot ,light touch intact. PALPATION: planterfascia left > right. AROM: dorsiflexion left 0 degrees ,right 5 degrees ,inversion 12 degrees ,eversion 10 degrees , planterflexion 50 degrees. MMT: troy siflexion/eversion/inversion 4-5/ , G-S 3+/5. FLEXABLITY: G-S left mild tight ,right mod - Balance/Special Test Scores Lower Extremity Functional Score: 16 - Goals Goal 1:: I with HEP for feet Goal Time Frame: 4-6 Weeks Goal 2:: Patient to demonstrate 40% improvement with less pain and increase function. Goal Time Frame: 4-6 Weeks Goal 3:: Patient to increase AROM ankle by 5 degrees to improve function and walking Goal 4:: Patient to increase strength Bilateral ankle to good with less pain Goal Time Frame: 4-6 Weeks Goal 5:: Patient to improve LFES score by 5 points to improve QOL and function . Goal Time Frame: 4-6 Weeks - Rehabilitation Potential Physical Therapy Diagnosis: This patient has multiple comorbities influences condition as well as bilateral plantar fasciitis with pain ,poor ankle ROM ,tenderness PF ,edema ,decrease gait from pain affect function and ADLS Rehabilitation Potential: Fair - Anticipated Interventions Patient/Client Instruction: Educate patient on: Condition, Plan of Care For the Purpose of:: To decrease pain, To increase ROM, To improve muscle performance and motor function, To improve ability to perform ADL's, To improve ability of physical actions for home/community/work/leisure, To improve health of tissue, To decrease soft tissue restriction, To increase flexibility/ROM, To improve endurance, To improve balance, To improve safety with gait, To improve tolerance to ADL's Therapeutic Exercise to Include: Strength training, Endurance training, Flexibilty training, Passive ROM, Active ROM For the Purpose of:: To decrease pain, To increase ROM, To improve nutrient delivery to tissue, To increase oxygenation perfusion, To improve muscle performance and motor function, To improve ability to perform ADL's, To improve ability of physical actions for home/community/work/leisure, To improve health of tissue, To decrease soft tissue restriction, To increase flexibility/ROM Manual Therapy Techniques to Include: Massage, Passive ROM, Soft tissue mobilization Comment: PLANTARFASCIA For the Purpose of:: To decrease pain, To increase ROM, To improve nutrient delivery to tissue, To increase oxygenation perfusion, To improve health of tissue, To decrease soft tissue restriction TENS: Yes IF ES: Yes Cryotherapy (ice pack, ice massage): Yes Ultrasound (thermal/non thermal): Yes For the Purpose of:: To decrease pain, To increase ROM, To improve nutrient delivery to tissue, To increase oxygenation perfusion, To improve health of tissue, To decrease soft tissue restriction Thank you for the opportunity to evaluate your patient. For Medicare and Medicare HMO plans, please review the plan of care and approve it. It will need to be FAXED BACK to us at [phone] for Medicare purposes. For Medicare only, by signing this I certify the plan of care. Please let me know if there are questions or concerns regarding this plan of care. Physician Signature:____ Date:
--- NOTE | 2022-08-07 13:31 | HP.PTEVAL ---
Patient's Visit Information RAMIRO BHAKTA is a 77 year old F referred to Physical Therapy by Dr. Reuben Martines DPM with a diagnosis of RIGHT/LEFT PLANTAR FASCITIS. Date of Evaluation: 08/07/22 Physical Therapist: Prakash Ruiz, PT, Cert MDT, OCS - Visit Plan Frequency: 2x /Week Duration: 4 Weeks Plan: PATIENT IS HIGHLY IRRITABLE FEET OTHER COMORBITIES. USES FWW , VISION (INTOPHORESIS NOT COVERED). PT INTERVETIONS STRETCHING PLANTAR FASCSIA/CALF ,MANUAL THERAPY PF ,ROM/STRENGTHENING ANKLE ,US AND CP - Subjective This 77 y/o female presents to physical therapy for plantar fasciitis bilateral. Patient has multiple comorbities to influence patient low back pain s/p lumbar surgery ~ 20 years ago ,right TKR ,OA feet /back ,skin CA surgery legally blind ,gallbladder ,uses fww for gait. Patient has seen ortho for lumbar and knees. Patient has chronic edema in lower legs left > right. Patient has had PT in past. Patient left foot is worst than right. Location of pain located plantarfascitis and dorsal foot. Symptoms worse with walking and standing. Patient has paresthesia/tingling in feet .Patient uses compression stocks and has orthotics. SOCAIL: single. VOCATION: retired. Patient unable to take medication. Patient had x-rays showed spurs. Patient pain affects QOL and function has pain multiple areas - Pain Left Foot Pain Intensity (Out of 10): 8 Pain Intensity Range: 10 Right Foot Pain Intensity (Out of 10): 5 - Objective POSTURE: pes planus with calcaneal valgus. GAIT: reciprocal pattern antalgic gait forward posture slow adrian decrease vision hips/knees flexed. NEURO: c/o paresthesia left foot ,light touch intact. PALPATION: planterfascia left > right. AROM: dorsiflexion left 0 degrees ,right 5 degrees ,inversion 12 degrees ,eversion 10 degrees , planterflexion 50 degrees. MMT: dorsiflexion/eversion/inversion 4-5/ , G-S 3+/5. FLEXABLITY: G-S left mild tight ,right mod - Balance/Special Test Scores Lower Extremity Functional Score: 16 - Goals Goal 1:: I with HEP for feet Goal Time Frame: 4-6 Weeks Goal 2:: Patient to demonstrate 40% improvement with less pain and increase function. Goal Time Frame: 4-6 Weeks Goal 3:: Patient to increase AROM ankle by 5 degrees to improve function and walking Goal 4:: Patient to increase strength Bilateral ankle to good with less pain Goal Time Frame: 4-6 Weeks Goal 5:: Patient to improve LFES score by 5 points to improve QOL and function . Goal Time Frame: 4-6 Weeks - Rehabilitation Potential Physical Therapy Diagnosis: This patient has multiple comorbities influences condition as well as bilateral plantar fasciitis with pain ,poor ankle ROM ,tenderness PF ,edema ,decrease gait from pain affect function and ADLS Rehabilitation Potential: Fair - Anticipated Interventions Patient/Client Instruction: Educate patient on: Condition, Plan of Care For the Purpose of:: To decrease pain, To increase ROM, To improve muscle performance and motor function, To improve ability to perform ADL's, To improve ability of physical actions for home/community/work/leisure, To improve health of tissue, To decrease soft tissue restriction, To increase flexibility/ROM, To improve endurance, To improve balance, To improve safety with gait, To improve tolerance to ADL's Therapeutic Exercise to Include: Strength training, Endurance training, Flexibilty training, Passive ROM, Active ROM For the Purpose of:: To decrease pain, To increase ROM, To improve nutrient delivery to tissue, To increase oxygenation perfusion, To improve muscle performance and motor function, To improve ability to perform ADL's, To improve ability of physical actions for home/community/work/leisure, To improve health of tissue, To decrease soft tissue restriction, To increase flexibility/ROM Manual Therapy Techniques to Include: Massage, Passive ROM, Soft tissue mobilization Comment: PLANTARFASCIA For the Purpose of:: To decrease pain, To increase ROM, To improve nutrient delivery to tissue, To increase oxygenation perfusion, To improve health of tissue, To decrease soft tissue restriction TENS: Yes IF ES: Yes Cryotherapy (ice pack, ice massage): Yes Ultrasound (thermal/non thermal): Yes For the Purpose of:: To decrease pain, To increase ROM, To improve nutrient delivery to tissue, To increase oxygenation perfusion, To improve health of tissue, To decrease soft tissue restriction Thank you for the opportunity to evaluate your patient. For Medicare and Medicare HMO plans, please review the plan of care and approve it. It will need to be FAXED BACK to us at [phone] for Medicare purposes. For Medicare only, by signing this I certify the plan of care. Please let me know if there are questions or concerns regarding this plan of care. Physician Signature: Date:
--- NOTE | 2022-09-05 13:03 | HP.PTREVAL ---
Dr. Reuben Martines, DPM, It has been my pleasure to treat RAMIRO BHAKTA over the last 9 visits for RIGHT/LEFT PLANTAR FASCITIS,HIP PAIN ,LBP. Please see the progress note below for an update on the physical therapy plan of care! Subjective: Patient states overall better with Objective/Function: POSTURE: pes planus with calcaneal valgus. GAIT: reciprocal pattern antalgic gait forward posture slow adrian decrease vision hips/knees flexed. NEURO: c/o paresthesia left foot ,light touch intact. PALPATION: plantarfascia left > right. AROM: dorsiflexion left 0 degrees ,right 5 degrees ,inversion 12 degrees ,eversion 10 degrees , plantarflexion 50 degrees. MMT: dorsiflexion/eversion/inversion 4-5/ , G-S 3+/5. FLEXABLITY: G-S left mild tight ,right mod. PALAPTION: tender SI /LS, mild greater trochanter. LUMBAR ROM: Flexion mod loss ,,extension ,severe loss ,side glides mod loss all with pain. SLR-. AROM: left knee 5 -100 degrees, right 5-105 degrees supine flexion. MMT: quads right 21.7 ,left 17.8,hamstring right 24.4 left 21.8 ,HIP abd right and left 8.6 ,hip flexion right 7.6 ,left 10.8. HIP: IR 5 degrees ,ER 25 Degrees. EDEMA: 1+ LEFT LOWER LEG Plan Plan: PATIENT IS HIGHLY IRRITABLE FEET OTHER COMORBITIES. USES FWW , VISION (INTOPHORESIS NOT COVERED). CONT POC. ADDED TO POC DLS ,POSTURAL EX'S ,LE FLEXABLITY AND HIPS/QUADS/HAMTRINGS. PT INTERVETIONS STRETCHING PLANTAR FASCSIA/CALF ,MANUAL THERAPY PF ,ROM/STRENGTHENING ANKLE ,US AND CP Balance/Gait/Functional tests - Balance/Special Test Scores Lower Extremity Functional Score: 26 Goals Goal 1:: I with HEP for BACK and BLE Goal Time Frame: 4-6 Weeks Goal Progress: Progressing Goal 2:: Patient to demonstrate 40% improvement with less pain and increase function back/hip/knee/feet Goal Time Frame: 4-6 Weeks Goal Progress: Progressing Goal 3:: Patient to increase AROM ankle by 5 degrees to improve function and walking Goal Progress: Progressing Goal 4:: Patient to increase strength Bilateral ankle and peak force of hips knees by 5 to good with less pain Goal Time Frame: 4-6 Weeks Goal Progress: Progressing Goal 5:: Patient to improve LFES score by 5 points to improve QOL and function . Goal Time Frame: 4-6 Weeks Goal Progress: Progressing Goal 6:: Patient to improve improve lumbar ROM and hip ROM for function of recovery Goal Time Frame: 4-6 Weeks Goal Progress: Progressing Anticipated Interventions Patient/Client Instruction: Educate patient on: Condition, Plan of Care For the Purpose of:: To decrease pain, To increase ROM, To improve muscle performance and motor function, To improve ability to perform ADL's, To improve ability of physical actions for home/community/work/leisure, To improve health of tissue, To decrease soft tissue restriction, To increase flexibility/ROM, To improve endurance, To improve balance, To improve safety with gait, To improve tolerance to ADL's Therapeutic Exercise to Include: Strength training, Endurance training, Body mechanics, Postural training, Flexibilty training, Passive ROM, Active ROM, Dynamic Lumbar Stabilization For the Purpose of:: To decrease pain, To increase ROM, To improve nutrient delivery to tissue, To increase oxygenation perfusion, To improve muscle performance and motor function, To improve ability to perform ADL's, To improve ability of physical actions for home/community/work/leisure, To improve health of tissue, To decrease soft tissue restriction, To increase flexibility/ROM Manual Therapy Techniques to Include: Massage, Passive ROM, Soft tissue mobilization Comment: PLANTARFASCIA For the Purpose of:: To decrease pain, To increase ROM, To improve nutrient delivery to tissue, To increase oxygenation perfusion, To improve health of tissue, To decrease soft tissue restriction TENS: Yes IF ES: Yes Cryotherapy (ice pack, ice massage): Yes Ultrasound (thermal/non thermal): Yes For the Purpose of:: To decrease pain, To increase ROM, To improve nutrient delivery to tissue, To increase oxygenation perfusion, To improve health of tissue, To decrease soft tissue restriction Please do not hesitate to contact me at [phone] by phone or if you have questions or concerns regarding this new plan of care! Sincerely, Prakash Ruiz, PT, Cert MDT, OCS
--- NOTE | 2022-10-03 14:55 | HP.PTREVAL_ITS ---
Dr. Reuben Martines, DPM, It has been my pleasure to treat RAMIRO BHAKTA over the last 16 visits for RIGHT/LEFT PLANTAR FASCITIS,HIP PAIN ,LBP. Please see the progress note below for an update on the physical therapy plan of care! Subjective: Doing better getting stronger PF is worse on left Objective/Function: POSTURE: pes planus with calcaneal valgus. GAIT: reciprocal pattern antalgic gait forward posture slow adrian decrease vision hips/knees flexed. NEURO: c/o paresthesia left foot ,light touch intact. PALPATION: taisha ntarfascia left . AROM: dorsiflexion left 0 degrees ,right 5 degrees ,inversion 12 degrees ,eversion 10 degrees , plantarflexion 50 degrees. MMT: dorsiflexion/eversion/inversion 4-5/ , G-S 3+/5. FLEXABLITY: G-S left mild tight ,right mod. PALAPTION: tender SI /LS, mild greater trochanter. LUMBAR ROM: Flexion mod loss ,,extension ,severe loss ,side glides mod loss all with pain. SLR-. AROM: left knee 5 -100 degrees, right 5-105 degrees supine flexion. MMT: quads right 31.7 ,left 45.4,hamstring right 34.4 left 30.8 ,HIP abd right and left 8.6 ,hip flexion right 15.6 ,left 22.8. HIP: IR 15 degrees ,ER 35 Degrees. EDEMA: improved min effusion Plan Plan: Focus on strengthening /stretching. CONT POC 2x week/44weeks. ADDED TO POC DLS ,POSTURAL EX'S ,LE FLEXABLITY AND HIPS/QUADS/HAMTRINGS. PT INTERVETIONS STRETCHING PLANTAR FASCSIA/CALF ,MANUAL THERAPY PF ,ROM/STRENGTHENING ANKLE ,US AND CP Balance/Gait/Functional tests - Balance/Special Test Scores Lower Extremity Functional Score: 28 Goals Goal 1:: I with HEP for BACK and BLE Goal Time Frame: 4-6 Weeks Goal Progress: Progressing Goal 2:: Patient to demonstrate 40% improvement with less pain and increase function back/hip/knee/feet Goal Time Frame: 4-6 Weeks Goal Progress: Progressing Goal 3:: Patient to increase AROM ankle by 5 degrees to improve function and walking Goal Progress: Progressing Goal 4:: Patient to increase strength Bilateral ankle and peak force of hips kne es by 5 to good with less pain Goal Time Frame: 4-6 Weeks Goal Progress: Progressing Goal 5:: Patient to improve LFES score by 5 points to improve QOL and function . Goal Time Frame: 4-6 Weeks Goal Progress: Progressing Goal 6:: Patient to improve improve lumbar ROM and hip ROM for function of recovery Goal Time Frame: 4-6 Weeks Goal Progress: Progressing Anticipated Interventions Patient/Client Instruction: Educate patient on: Condition, Plan of Care For the Purpose of:: To decrease pain, To increase ROM, To improve muscle per formance and motor function, To improve ability to perform ADL's, To improve ability of physical actions for home/community/work/leisure, To improve health of tissue, To decrease soft tissue restriction, To increase flexibility/ROM, To improve endurance, To improve balance, To improve safety with gait, To improve tolerance to ADL's Therapeutic Exercise to Include: Strength training, Endurance training, Body mechanics, Postural training, Flexibilty training, Passive ROM, Active ROM, Dynamic Lumbar Stabilization For the Purpose of:: To decrease pain, To increase ROM, To improve nutrient delivery to tissue, To increase oxygenation perfusion, To improve muscle performance and motor function, To improve ability to perform ADL's, To improve ability of physical actions for home/community/work/leisure, To improve health of tissue, To decrease soft tissue restriction, To increase flexibility/ROM Manual Therapy Techniques to Include: Massage, Passive ROM, Soft tissue mobilization Comment: PLANTARFASCIA For the Purpose of:: To decrease pain, To increase ROM, To improve nutrient delivery to tissue, To increase oxygenation perfusion, To improve health of tissue, To decrease soft tissue restriction TENS: Yes IF ES: Yes Cryotherapy (ice pack, ice massage): Yes Ultrasound (thermal/non thermal): Yes For the Purpose of:: To decrease pain, To increase ROM, To improve nutrient delivery to tissue, To increase oxygenation perfusion, To improve health of tissue, To decrease soft tissue restriction Please do not hesitate to contact me at [phone] by phone or if you have questions or concerns regarding this new plan of care! Sincerely, Prakash Ruiz, PT, Cert MDT, OCS
--- NOTE | 2022-12-20 12:29 | HP.PTREVAL ---
Re-Evaluation Intro: Dr. Reuben Martines, DPM, It has been my pleasure to treat RAMIRO BHAKTA over the last 27 visits for RIGHT/LEFT PLANTAR FASCITIS,HIP PAIN ,LBP. Please see the progress note below for an update on the physical therapy plan of care! Subjective Subjective: Doing much better getting stronger Objective Objective/Function: POSTURE: pes planus with calcaneal valgus. GAIT: reciprocal pattern antalgic gait forward posture slow adrian decrease vision hips/knees flexed. NEURO: c/o paresthesia left foot ,light touch intact. PALPATION: plantarfascia left . AROM: dorsiflexion left 0 degrees ,right 5 degrees ,inversion 15 degrees ,eversion 10 degrees , plantarflexion 55 degrees. MMT: dorsiflexion/eversion/inversion 4-5/ , G-S 3+/5. FLEXABLITY: G-S left mild tight ,right mod. PALAPTION: tender SI /LS, mild greater trochanter. LUMBAR ROM: Flexion mod loss ,,extension ,severe loss ,side glides mod loss all with pain. SLR-. AROM: left knee 5 -105 degrees, right 5-115 degrees supine flexion. MMT: quads right 36.7 ,left 45.4,hamstring right 34.4 left 30.8 ,hip flexion right 17.6 ,left 24.8. HIP: IR 125 degrees ,ER 345 Degrees. EDEMA: absen Plan Plan Plan: ADDED TO POC DLS ,POSTURAL EX'S ,LE FLEXABLITY AND HIPS/QUADS/HAMSTRINGS PT INTERVETIONS STRETCHING PLANTAR FASCSIA/CALF ,MANUAL THERAPY PF ,ROM/STRENGTHENING ANKLE ,US Balance/Gait/Functional tests Balance/Special Test Scores Lower Extremity Functional Score: 32 Goals Goals Goal 1:: I with HEP for BACK and BLE Goal Time Frame: 4-6 Weeks Goal Progress: Progressing Goal 2:: Patient to demonstrate 70% improvement with less pain and increase function back/hip/knee/feet( NEW GOAL) Goal Time Frame: 4-6 Weeks Goal Progress: Progressing Goal 3:: Patient to increase AROM ankle by 5 degrees to improve function and walking Goal Progress: Progressing Goal 4:: Patient to increase strength Bilateral ankle and peak force of hips knees by 5 to good with less pain( NEW G0AL) Goal Time Frame: 4-6 Weeks Goal Progress: Progressing Goal 5:: Patient to improve LFES score by 5 points to improve QOL and function .( New goal) Goal Time Frame: 4-6 Weeks Goal Progress: Progressing Goal 6:: Patient to improve improve lumbar ROM and hip ROM for function of recovery Goal Time Frame: 4-6 Weeks Goal Progress: Progressing Anticipated Interventions Anticipated Interventions Patient/Client Instruction: Educate patient on: Condition and Plan of Care For the Purpose of:: To decrease pain, To increase ROM, To improve muscle performance and motor function, To improve ability to perform ADL's, To improve ability of physical actions for home/community/work/leisure, To improve health of tissue, To decrease soft tissue restriction, To increase flexibility/ROM, To improve endurance, To improve balance, To improve safety with gait and To improve tolerance to ADL's Therapeutic Exercise to Include: Strength training, Endurance training, Body mechanics, Postural training, Flexibilty training, Passive ROM, Active ROM and Dynamic Lumbar Stabilization For the Purpose of:: To decrease pain, To increase ROM, To improve nutrient delivery to tissue, To increase oxygenation perfusion, To improve muscle performance and motor function, To improve ability to perform ADL's, To improve ability of physical actions for home/community/work/leisure, To improve health of tissue, To decrease soft tissue restriction and To increase flexibility/ROM Manual Therapy Techniques to Include: Massage, Passive ROM and Soft tissue mobilization Comment: PLANTARFASCIA For the Purpose of:: To decrease pain, To increase ROM, To improve nutrient delivery to tissue, To increase oxygenation perfusion, To improve health of tissue and To decrease soft tissue restriction TENS: Yes IF ES: Yes Cryotherapy (ice pack, ice massage): Yes Ultrasound (thermal/non thermal): Yes For the Purpose of:: To decrease pain, To increase ROM, To improve nutrient delivery to tissue, To increase oxygenation perfusion, To improve health of tissue and To decrease soft tissue restriction Re-Evaluation Ending Re-evaluation ending: Please do not hesitate to contact me at [phone] by phone or if you have questions or concerns regarding this new plan of care! Sincerely, Prakash Ruiz, PT, Cert MDT, OCS
--- NOTE | 2023-01-29 12:06 | HP.PTREVAL_ITS ---
Re-Evaluation Intro: Dr. Reuben Martines, DPM, It has been my pleasure to treat RAMIRO BHAKTA over the last 32 visits for RIGHT/LEFT PLANTAR FASCITIS,HIP PAIN ,LBP. Please see the progress note below for an update on the physical therapy plan of care! Subjective Subjective: I m getting better ,discussed with patient about goal [facility] Objective Objective/Function: POSTURE: pes planus with calcaneal valgus. GAIT: reciprocal pattern antalgic gait forward posture slow adrian decrease vision hips/knees flexed. NEURO: c/o paresthesia left foot ,light touch intact. PALPATION: plant arfascia left . AROM: dorsiflexion left 0 degrees ,right 5 degrees ,inversion 15 degrees ,eversion 10 degrees , plantarflexion 55 degrees. MMT: dorsiflexion/eversion/inversion 4-5/ , G-S 3+/5. FLEXABLITY: G-S left mild tight ,right mod. PALAPTION: tender SI /LS, mild greater trochanter. LUMBAR ROM: Flexion mod loss ,,extension ,severe loss ,side glides mod loss all with pain. SLR-. AROM: left knee 5 -105 degrees, right 5-115 degrees supine flexion. MMT: quads right 36.7 ,left 45.4,hamstring right 34.4 left 30.8 ,hip flexion right 17.6 ,left 24.8. HIP: IR 125 degrees ,ER 45 Degrees. EDEMA: absent Plan Plan Plan: *focus on gym on own machines and functional room* PT BLE STRENGTHENING /CONDITIONINGDLS ,POSTURAL EX'S ,LE FLEXABLITY AND HIPS/QUADS/HAMSTRINGS Balance/Gait/Functional tests Balance/Special Test Scores Lower Extremity Functional Score: 32 Goals Goals Goal 1:: I with HEP for BACK and BLE Goal Time Frame: 4-6 Weeks Goal Progress: Progressing Goal 2:: Patient to demonstrate 70% improvement with less pain and increase function back/hip/knee/feet( NEW GOAL) Goal Time Frame: 4-6 Weeks Goal Progress: Progressing Goal 3:: Patient to increase AROM ankle by 5 degrees to improve function and walking Goal Progress: Progressing Goal 4:: Patient to increase strength Bilateral ankle and peak force of hips knees by 5 to good with less pain( NEW G0AL) Goal Time Frame: 4-6 Weeks Goal Progress: Progressing Goal 5:: Patient to improve LFES score by 5 points to improve QOL and function .( New goal) Goal Time Frame: 4-6 Weeks Goal Progress: Progressing Goal 6:: Patient to improve improve lumbar ROM and hip ROM for function of recovery Goal Time Frame: 4-6 Weeks Goal Progress: Progressing Anticipated Interventions Anticipated Interventions Patient/Client Instruction: Educate patient on: Condition and Plan of Care For the Purpose of:: To decrease pain, To increase ROM, To improve muscle performance and motor function, To improve ability to perform ADL's, To improve ability of physical actions for home/community/work/leisure, To improve health of tissue, To decrease soft tissue restriction, To increase flexibility/ROM, To improve endurance, To improve balance, To improve safety with gait and To improve tolerance to ADL's Therapeutic Exercise to Include: Strength training, Endurance training, Body mechanics, Postural training, Flexibilty training, Passive ROM, Active ROM and Dynamic Lumbar Stabilization For the Purpose of:: To decrease pain, To increase ROM, To improve nutrient delivery to tissue, To increase oxygenation perfusion, To improve muscle performance and motor function, To improve ability to perform ADL's, To improve ability of physical actions for home/community/work/leisure, To improve health of tissue, To decrease soft tissue restriction and To increase flexibility/ROM Manual Therapy Techniques to Include: Massage, Passive ROM and Soft tissue mobilization Comment: PLANTARFASCIA For the Purpose of:: To decrease pain, To increase ROM, To improve nutrient delivery to tissue, To increase oxygenation perfusion, To improve health of tissue and To decrease soft tissue restriction TENS: Yes IF ES: Yes Cryotherapy (ice pack, ice massage): Yes Ultrasound (thermal/non thermal): Yes For the Purpose of:: To decrease pain, To increase ROM, To improve nutrient delivery to tissue, To increase oxygenation perfusion, To improve health of tissue and To decrease soft tissue restriction Re-Evaluation Ending Re-evaluation ending: Please do not hesitate to contact me at [phone] by phone or if you have questions or concerns regarding this new plan of care! Sincerely, Prakash Ruiz, PT, Cert MDT, OCS
--- NOTE | 2023-03-11 15:35 | HP.PTDCSUM ---
Discharge Summary D/C summary: It has been my pleasure to treat RAMIRO BHAKTA referred by Dr. Reuben Martines DPGelacio, with the diagnosis of RIGHT/LEFT PLANTAR FASCITIS,HIP PAIN ,LBP for a total of 37 visit(s). Discharge Date: 03/11/23 Please see the following information for a summary of their discharge status. Subjective Subjective: Doing better . Patient has been seeing chiropractor Overall better . I plan to have tilt test at hospital ,may return to assess didizziness Pain Left Foot: Pain Intensity (Out of 10): 2 Right Foot: Pain Intensity (Out of 10): 2 Low back: Pain Intensity (Out of 10): 5 Overall Improvement % Improvement: 50 Objective Objective/Function: POSTURE: pes planus with calcaneal valgus. GAIT: reciprocal pattern antalgic gait forward posture slow adrian decrease vision hips/knees flexed. NEURO: c/o paresthesia left foot ,light touch intact. PALPATION: unremarkable . AROM: dorsiflexion left 0 degrees ,right 5 degrees ,inversion 15 degrees ,eversion 10 degrees , plantarflexion 55 degrees. MMT: dorsiflexion/eversion/inversion 4-5/ , G-S 3+/5. FLEXABLITY: G-S left mild tight ,right mod. PALAPTION: tender SI /LS, mild greater trochanter. LUMBAR ROM: Flexion mod loss ,,extension ,severe loss ,side glides mod loss all with pain. SLR-. AROM: left knee 5 -105 degrees, right 5-115 degrees supine flexion. MMT: quads right 35.4 ,left 43.1,hamstring right 32.4 left 31.2 ,hip flexion right 17.7 ,left 24.8. HIP: IR 125 degrees ,ER 45 Degrees. Goals Goal 1:: I with HEP for BACK and BLE Goal Progress: Progressing Goal 2:: Patient to demonstrate 70% improvement with less pain and increase function back/hip/knee/feet( NEW GOAL) Goal Progress: Progressing Goal 3:: Patient to increase AROM ankle by 5 degrees to improve function and walking Goal Progress: Progressing Goal 4:: Patient to increase strength Bilateral ankle and peak force of hips knees by 5 to good with less pain( NEW G0AL) Goal Progress: Progressing Goal 5:: Patient to improve LFES score by 5 points to improve QOL and function .( New goal) Goal Progress: Progressing Goal 6:: Patient to improve improve lumbar ROM and hip ROM for function of recovery Goal Progress: Progressing Plan Plan: D/C D/C Information Discharge Comments: hep and gym d/c sentence: If there are questions or concerns regarding this patient's physical therapy, please feel free to call me at [phone]. Thank you for the referral of this patient. Sincerely, Prakash Ruiz, PT, Cert MDT, OCS Balance/Gait/Functional tests Balance/Special Test Scores Lower Extremity Functional Score: 33 Improvement % Improvement: 50
== END 2023-03-11 19:00 | disposition home or self-care (01) ==
LOC: PT 14:00
PROVIDERS: PCP Family Medicine Geriatric Medicine; Referring Provider Student in an Organized Health Care Education/Training Program; Visit Provider Student in an Organized Health Care Education/Training Program
DX: M72.2 Plantar fascial fibromatosis (principal); M54.50 Low back pain, unspecified; M70.61 Trochanteric bursitis, right hip; M19.071 Primary osteoarthritis, right ankle and foot; M19.072 Primary osteoarthritis, left ankle and foot; Z96.659 Presence of unspecified artificial knee joint; Z98.890 Other specified postprocedural states
CPT/HCPCS: 97035; 97110; 97140; 97162; 97164; 97530

== ENCOUNTER → 2023-03-13 | Outpatient (CLI) | payer MEDICARE, SELFPAY ==
[2023-03-13 08:46] LABS: Absolute Lymphocyte Count 2.28 X10^3/uL (0.83-4.51); Absolute Neutrophil Count 3.5 X10^3/uL (2.0-7.7); Basophil# 0.05 X10^3/uL; Basophil% 0.7 % (0-1); Eosinophil# 0.58 X10^3/uL; Eosinophils% 8.1 % (0-5); Hematocrit 36.8 % (37-47); Hemoglobin 11.2 g/dL (12.0-15.0); Lymphocyte # 2.28 X10^3/ul (0.83-4.51); Lymphocyte % 31.8 % (19-41); Mean Corp Hgb Conc 30.4 g/dL (32-36); Mean Corpuscular Hgb 29.6 pg (27.0-32.0); Mean Corpuscular Volume 97.4 fL (81-99); Mean Platelet Vol. 9.8 fl (6.2-12.0); Monocyte% 9.8 % (0-10); NRBC Flagged by Analyzer 0 % (0-5); Neutrophil # 3.52 X10^3/uL (2.7-7.7); Neutrophil % 49.2 % (47-70); Platelet Count 185 K/mm3 (150-450); RBC Distribution Width CV 14.6 % (11.6-14.6); RBC Distribution Width SD 52.6 fl (35.1-43.9); Red Blood Count 3.78 M/mm3 (4.2-5.4); White Blood Count 7.2 K/mm3 (4.4-11.0)
[2023-03-13 09:00] LABS: Anion Gap 6 (5-15); BUN 24 mg/dL (7-18); BUN/Creat Ratio 21.4 RATIO (10-20); Calcium,Total 8.9 mg/dL (8.5-10.1); Chloride 107 mmol/L (98-107); Creatinine, Serum 1.12 mg/dL (0.55-1.02); EST Glomerular Filtration Rate 50 mL/min (>60); Est Glom Filt Rate - Afr Amer 60 mL/min (>60); Glucose 132 mg/dL (74-106); Potassium 3.9 mmol/L (3.5-5.1); Sodium Level 141 mmol/L (136-145)
--- NOTE | 2023-03-14 08:10 | PCM.TILTTABL ---
Staff Staff: Ida Vargas Summary Pre Test Resting HR: 82 Pre Test Resting BP: 168/93 Minimum Test HR: 79 Maximum Test HR: 85 Minimum Test BP: 122/81 Maximum Test BP: 172/87 Reason for Test Termination: Reached Maximum Test Time Physician Tilt Table Report Patient's Physicians Primary Care Physician: Christelle Hernandez Indications/Diagnosis: Dizziness Procedure Comments: The patient was brought to the noninvasive suite and baseline history and EKG were obtained after informed consent was obtained. The initial EKG demonstrated sinus rhythm with rate of 77 bpm. The patient was then put in the 70 degree head upright tilt position for the requisite time of 20 minutes. Continuous EKG monitoring as well as blood pressure measurements were obtained with the patient maintaining sinus rhythm throughout and the patient experiencing a gradual drop within 9 minutes of the blood pressure going from 1 68/93 to approximately 136 /83 mmHg. Patient did not complain of any symptomatology. EKG demonstrated no changes. Summary: Tilt table test with orthostatic drop in blood pressure without any symptoms.
[2023-03-14 08:17] VITALS: BP 122/81; BP 168/93; BP 172/87
== END | disposition home or self-care (01) ==
PROVIDERS: PCP Internal Medicine; Referring Provider Internal Medicine; Visit Provider Internal Medicine
DX: R42 Dizziness and giddiness (principal)
CPT/HCPCS: 36415; 80048; 85025; 93660; J7040; A4216

== ENCOUNTER → 2023-09-15 | Outpatient (CLI) | payer MEDICARE, SELFPAY ==
[2023-09-15 12:28] LABS: Bacteria 0 SEEN /hpf (None Seen); Mucous, Urine 0 SEEN /hpf (<or=2+); Red Blood Cells-Urine 0 SEEN /hpf (0-5); White Blood Cells 0 SEEN /hpf (0-5)
[2023-09-15 15:37] LABS: Color, Urine Yellow (Yellow); Glucose, Dipstick Normal (Normal); Ketone-Dipstick Negative (Negative); Leukocyte Esterase-Dipstick Negative /ul (Negative); Nitrite-Dipstick Negative (Negative); Occult Blood-Urine Negative /ul (Negative); Protein-Dipstick 30 mg/dl (Negative); Urine Bilirubin Dipstick Negative (Negative); Urine Clarity Clear (Clear); Urine Urobilinogen Normal (Normal)
[2023-09-15 15:51] LABS: Squamous Epithelial Cells - UA 0-5 SEEN /hpf (5-10)
== END | disposition home or self-care (01) ==
LOC: LABSPEC 12:27
PROVIDERS: PCP Internal Medicine; Visit Provider Internal Medicine
DX: R82.90 Unspecified abnormal findings in urine (principal)
CPT/HCPCS: 81001

== ENCOUNTER → 2023-10-16 | Outpatient (CLI) | payer MEDICARE, SELFPAY ==
[2023-10-16 17:08] LABS: Anion Gap 5 (5-15); BUN 23 mg/dL (7-18); BUN/Creat Ratio 22.8 RATIO (10-20); Calcium,Total 9.1 mg/dL (8.5-10.1); Chloride 107 mmol/L (98-107); Creatinine, Serum 1.01 mg/dL (0.55-1.02); EST Glomerular Filtration Rate 56 mL/min (>60); Est Glom Filt Rate - Afr Amer 68 mL/min (>60); Glucose 147 mg/dL (74-106); Sodium Level 139 mmol/L (136-145)
[2023-10-16 17:09] LABS: BNP,B-Type NATRIURETIC PEPTIDE 50.4 pg/mL (0-100)
[2023-10-16 17:10] LABS: D-Dimer Quantitative (DVT/PE) 0.72 FEU/ug/m (0.27-0.49)
== END | disposition home or self-care (01) ==
LOC: BIMLAB 16:01
PROVIDERS: PCP Internal Medicine; Visit Provider Internal Medicine
DX: I50.30 Unspecified diastolic (congestive) heart failure (principal); R60.0 Localized edema
CPT/HCPCS: 36415; 80048; 83880; 85379

== ENCOUNTER → 2023-10-17 | Outpatient (CLI) | payer MEDICARE, SELFPAY ==
--- NOTE | 2023-10-17 09:34 | VDLE_ITS ---
Reason For Study: ELEVATED D-DIMER RIGHT GSV is normal. CFV is compressible, spontaneous, phasic, competent and demonstrates normal augmentation. FV is compressible, spontaneous, phasic, competent and demonstrates normal augmentation. POP V is compressible, spontaneous, phasic, competent and demonstrates normal augmentation. T/P Trunk is compressible. PTV is compressible. RT PerV is compressible. Procedure This is a venous duplex using B-mode, color flow and spectral Doppler. Exam performed in department. The study was technically difficult. A preliminary report was called and/or faxed to DR. Hernandez @ [phone] @ 10:30 am. VL/Venous Duplex US, Unilateral Interpretation Summary Deep veins of the right lower extremity are patent and compressible segmentally . There is no evidence of right lower extremity deep vein thrombosis. Valvular competence ruchi ears intact within the proximal deep venous system on the right . The right great saphenous vein a ppears patent and compressible segmentally. Ordering Physician: Christelle Hernandez Referring Physician: Christelle Hernandez Performed By: Edda Fink, RDCOLLEEN, RVT
== END | disposition home or self-care (01) ==
LOC: CVS 09:31
PROVIDERS: PCP Internal Medicine; Referring Provider Internal Medicine; Visit Provider Internal Medicine
DX: R60.0 Localized edema (principal)
CPT/HCPCS: 93971

== ENCOUNTER 2023-10-31 11:00 | Outpatient (RCR) | payer MEDICARE, SELFPAY ==
--- NOTE | 2023-04-23 14:06 | HP.PTEVAL_ITS ---
Patient's Visit Information Visit Information Visit Information: RAMIRO BHAKTA is a 77 year old F referred to Physical Therapy by Dr. Mary Savage, KANIKA with a diagnosis of CERVICALALGIA ,SPONDYLOLISTHESIS ,LUMAR SCOLIOSIS. Date of Evaluation: 04/23/23 Physical Therapist: Prakash Ruiz, PT, Cert MDT, OCS Visit Plan Frequency: 2x /Week Duration: 4 Weeks Plan: PT INTERVETIONS CERVIACL ROM ,POSTURAL EX'S ,DLS ,MANAUL THERAPY STM /DISTRACTION , DLS AND MODALTEIS Subjective Subjective: This 77 y/o female presents to physical therapy with neck and back pain . Patient fell OOB ~ 1month ago had to call police needed assist . Seen Dr Savage for chiropractor and recommended PT. Patient also had x-rays of knee . Patient pain located cervical spine and low back pain symmetrical right > left. Patient has occasional radicular symptoms .Aggravating factors walking and standing unable to bend or lifting. Alleviating factors heat and stretching. Coughing/sneezing -. Bowel/bladder -. Patient has had lumbar surgery ~ 20 years .C/O paresthesia/tingling in hands. Aggravating factors turning and flexion and lifting. Patient has dizziness denies nausea/tinnitus. Alleviating factors rest and heat. Patient plans to see Neurologist. Patient had tilt test changes with BP. Patient has right knee pain. Patient sleeping okay at night. Patient condition affects QOL ,function and ADLS . Patient has SHANK SANDER with cleaning and cooking. Goals to improve function and decrease pain. SOCIAL: single Pain Bilateral Back: Pain Intensity (Out of 10): 8 Pain Intensity Range: 10 Bilateral Neck: Pain Intensity (Out of 10): 8 Pain Intensity Range: 10 Objective Objective: POSTURE: mild forward posture ,hips/knees flexed ,scoliosis GAIT: reciprocal pattern slow adrian antalgic gait with fww NEURO: c/o paresthesia/tingling hands ,reflexes C5-6-7 1/2 ,L3-4,L4-L5 ,L5-S1 1/3 AROM BUE: WFL shoulder flexion 130 degrees PALPATION: tender UT /levators/paraspinals CERVICAL ROM: flexion min loss ,extension min loss ,rotation mod loss ,pain > right ,lateral flexion mod loss MMT: BUE grossly 4-/5 ,shoulders 3+/5 ,quads/hams 4-/5 ,hip flexion 3+/5 ,ankle 4/5 FLEXABLITY:, hamstrings mod tight LUMBAR ROM: flexion mod loss ,extension mod/severe loss ,side glides mod loss Special Tests C/S Radiculapathy - Left Upper limb tension test: Negative C/S Radiculapathy - Right Upper limb tension test: Negative C/S Radiculapathy - Left Spurlings: Positive C/S Radiculapathy - Right Spurlings: Positive C/S Radiculapathy - Left Cervical distraction: Negative C/S Radiculapathy - Right Cervical distraction: Negative C/S Radiculapathy - Left Relief test: Negative C/S Radiculapathy - Right Relief test: Negative C/S Radiculapathy - Valsalva: Negative Sharp Darin: Negative Vertebral Artery Test: Negative Alar Ligament Test: Negative L/S Slump test left side: Negative L/S Slump test right side: Negative L/S Left Straight Leg Raise: Negative L/S Right Straight Leg Raise: Negative Balance/Special Test Scores Oswestry Neck Score: 27 Goals Goal 1:: Patient to be I with HEP for back and neck Goal Time Frame: 4-6 Weeks Goal 2:: Patient to improve cervical ROM for function of recovery for driving Goal Time Frame: 4-6 Weeks Goal 3:: Patient to improve lumbar ROM for function of recovery to put on shoes Goal Time Frame: 4-6 Weeks Goal 4:: Patient to demonstrate 40% improvement with decrease pain in back and back Goal Time Frame: 4-6 Weeks Goal 5:: Patient to improve neck oswestry by 3-5 points to improve QOL to improve Goal Time Frame: 6-8 Weeks Rehabilitation Potential Physical Therapy Diagnosis: Patient has cervical pain and lumbar pain which increased from slipping OOB with pain with motion testing ,positioning needs FWW for gait with decrease ROM neck and back thus benefit from skilled PT Rehabilitation Potential: Fair Anticipated Interventions Patient/Client Instruction: Educate patient on: Condition and Plan of Care For the Purpose of:: To decrease pain, To increase ROM, To improve nutrient delivery to tissue, To increase oxygenation perfusion, To improve muscle performance and motor function, To increase tolerance to activity/condition/position, To improve ability of physical actions for home/community/work/leisure, To improve gait and locomotor functions, To improve health of tissue, To decrease soft tissue restriction, To increase flexibility/ROM, To improve balance and To improve tolerance to ADL's Therapeutic Exercise to Include: Strength training, Body mechanics, Postural training, Flexibilty training and Dynamic Lumbar Stabilization For the Purpose of:: To decrease pain, To increase ROM, To improve muscle performance and motor function, To improve ability to perform ADL's, To increase tolerance to activity/condition/position, To improve ability of physical actions for home/community/work/leisure, To improve health of tissue, To decrease soft tissue restriction, To increase flexibility/ROM, To improve endurance, To improve balance and To reduce risk of recurrence Manual Therapy Techniques to Include: Mobilization and Soft tissue mobilization Comment: cervical traction For the Purpose of:: To decrease pain, To increase ROM, To improve nutrient delivery to tissue, To increase oxygenation perfusion, To improve health of tissue, To decrease soft tissue restriction and To increase flexibility/ROM TENS: Yes IF ES: Yes Cryotherapy (ice pack, ice massage): Yes Thermo therapy (hot pack): Yes Ultrasound (thermal/non thermal): Yes For the Purpose of:: To decrease pain, To increase ROM, To improve nutrient delivery to tissue, To increase oxygenation perfusion, To improve health of tissue and To decrease soft tissue restriction Text: Thank you for the opportunity to evaluate your patient. For Medicare and Medicare HMO plans, please review the plan of care and approve it. It will need to be FAXED BACK to us at [phone] for Medicare purposes. For Medicare only, by signing this I certify the plan of care. Please let me know if there are questions or concerns regarding this plan of care. Physician Signature: Date:
--- NOTE | 2023-06-02 11:25 | HP.PTREVAL ---
Re-Evaluation Intro: Dr. Mary Savage, KANIKA, It has been my pleasure to treat RAMIRO BHAKTA over the last 8 visits for CERVICALALGIA ,SPONDYLOLISTHESIS ,LUMAR SCOLIOSIS. Please see the progress note below for an update on the physical therapy plan of care! Subjective Subjective: Neck is better sciatica conts to be more painful Pain is dependent on weather as well Objective Objective/Function: POSTURE: mild forward posture ,hips/knees flexed ,scoliosis GAIT: reciprocal pattern slow adrian antalgic gait with fww NEURO: c/o paresthesia/tingling hands ,reflexes C5-6-7 1/2 ,L3-4,L4-L5 ,L5-S1 1/3 AROM BUE: WFL shoulder flexion 130 degrees PALPATION: tender UT /levators/paraspinals R> L CERVICAL ROM: flexion min loss ,extension min loss ,rotation min /mod loss ,pain > right ,lateral flexion mod loss MMT: BUE grossly 4-/5 ,shoulders 3+/5 ,quads/hams 4-/5 ,hip flexion 3+/5 ,ankle 4/5 FLEXABLITY:, hamstrings mod tight LUMBAR ROM: flexion mod loss ,extension mod/severe loss ,side glides mod loss Plan Plan Plan: CONT WITH POC PT INTERVETIONS CERVIACL ROM ,POSTURAL EX'S ,DLS ,MANAUL THERAPY STM /DISTRACTION , DLS AND MODALTEIS Balance/Gait/Functional tests Balance/Special Test Scores Oswestry Neck Score: 27 Goals Goals Goal 1:: Patient to be I with HEP for back and neck Goal Time Frame: 4-6 Weeks Goal Progress: Progressing Goal 2:: Patient to improve cervical ROM for function of recovery for driving Goal Time Frame: 4-6 Weeks Goal Progress: Progressing Goal 3:: Patient to improve lumbar ROM for function of recovery to put on shoes Goal Time Frame: 4-6 Weeks Goal Progress: Progressing Goal 4:: Patient to demonstrate 40% improvement with decrease pain in back and back Goal Time Frame: 4-6 Weeks Goal Progress: Progressing Goal 5:: Patient to improve neck oswestry by 3-5 points to improve QOL to improve Goal Time Frame: 6-8 Weeks Goal Progress: Progressing Anticipated Interventions Anticipated Interventions Patient/Client Instruction: Educate patient on: Condition and Plan of Care For the Purpose of:: To decrease pain, To increase ROM, To improve nutrient delivery to tissue, To increase oxygenation perfusion, To improve muscle performance and motor function, To increase tolerance to activity/condition/position, To improve ability of physical actions for home/community/work/leisure, To improve gait and locomotor functions, To improve health of tissue, To decrease soft tissue restriction, To increase flexibility/ROM, To improve balance and To improve tolerance to ADL's Therapeutic Exercise to Include: Strength training, Body mechanics, Postural training, Flexibilty training and Dynamic Lumbar Stabilization For the Purpose of:: To decrease pain, To increase ROM, To improve muscle performance and motor function, To improve ability to perform ADL's, To increase tolerance to activity/condition/position, To improve ability of physical actions for home/community/work/leisure, To improve health of tissue, To decrease soft tissue restriction, To increase flexibility/ROM, To improve endurance, To improve balance and To reduce risk of recurrence Manual Therapy Techniques to Include: Mobilization and Soft tissue mobilization Comment: cervical traction For the Purpose of:: To decrease pain, To increase ROM, To improve nutrient delivery to tissue, To increase oxygenation perfusion, To improve health of tissue, To decrease soft tissue restriction and To increase flexibility/ROM TENS: Yes IF ES: Yes Cryotherapy (ice pack, ice massage): Yes Thermo therapy (hot pack): Yes Ultrasound (thermal/non thermal): Yes For the Purpose of:: To decrease pain, To increase ROM, To improve nutrient delivery to tissue, To increase oxygenation perfusion, To improve health of tissue and To decrease soft tissue restriction Re-Evaluation Ending Re-evaluation ending: Please do not hesitate to contact me at [phone] by phone or if you have questions or concerns regarding this new plan of care! Sincerely, Prakash Ruiz, PT, Cert MDT, OCS
--- NOTE | 2023-07-08 12:55 | HP.PTREVAL_ITS ---
Re-Evaluation Intro: Dr. Mary Savage, KANIKA, It has been my pleasure to treat RAMIRO BHAKTA over the last 14 visits for CERVICALALGIA ,SPONDYLOLISTHESIS ,LUMAR SCOLIOSIS. Please see the progress note below for an update on the physical therapy plan of care! Subjective Subjective: Doing better overall. Objective Objective/Function: * patient continue to benefit from skilled PT to improve strength and decrease pain cervical and lumbar* * Will cont to continue with below goals which are appropriate update 2 goal* POSTURE: mild forward posture ,hips/knees flexed ,scoliosis GAIT: reciprocal pattern slow adrian antalgic gait with fww NEURO: c/o paresthesia/tingling hands ,reflexes C5-6-7 1/2 ,L3-4,L4-L5 ,L5-S1 1/3 AROM BUE: WFL shoulder flexion 130 degrees PALPATION: tender UT /levators/paraspinals R> L CERVICAL ROM: flexion min loss ,extension min loss ,rotation min /mod loss ,pain mod loss MMT: BUE grossly 4-/5 ,shoulders 3+/5 ,quads/hams 4-/5 ,hip flexion 3+/5 ,ankle 4/5 FLEXABLITY:, hamstrings mod tight LUMBAR ROM: flexion mod loss ,extension mod/severe loss ,side glides mod loss Plan Plan Plan: CONT WITH POC PT INTERVETIONS CERVIACL ROM ,POSTURAL EX'S ,DLS ,MANAUL THERAPY STM /DISTRACTION , DLS AND MODALTEIS Balance/Gait/Functional tests Balance/Special Test Scores Oswestry Neck Score: 23 Goals Goals Goal 1:: Patient to be I with HEP for back and neck Goal Time Frame: 4-6 Weeks Goal Progress: Progressing Goal 2:: Patient to improve cervical ROM for function of recovery for driving Goal Time Frame: 4-6 Weeks Goal Progress: Progressing Goal 3:: Patient to improve lumbar ROM for function of recovery to put on shoes Goal Time Frame: 4-6 Weeks Goal Progress: Progressing Goal 4:: Patient to demonstrate 50% improvement with decrease pain in back and back Goal Time Frame: 4-6 Weeks Goal Progress: ( new gaol) Goal 5:: Patient to improve neck oswestry by 3-5 points to improve QOL to improve Goal Time Frame: 6-8 Weeks Goal Progress: ( update goal) Anticipated Interventions Anticipated Interventions Patient/Client Instruction: Educate patient on: Condition and Plan of Care For the Purpose of:: To decrease pain, To increase ROM, To improve nutrient delivery to tissue, To increase oxygenation perfusion, To improve muscle performance and motor function, To increase tolerance to activity/condition/position, To improve ability of physical actions for home/community/work/leisure, To improve gait and locomotor functions, To improve health of tissue, To decrease soft tissue restriction, To increase flexi bility/ROM, To improve balance and To improve tolerance to ADL's Therapeutic Exercise to Include: Strength training, Body mechanics, Postural training, Flexibilty training and Dynamic Lumbar Stabilization For the Purpose of:: To decrease pain, To increase ROM, To improve muscle performance and motor function, To improve ability to perform ADL's, To increase tolerance to activity/condition/position, To improve ability of physical actions for home/community/work/leisure, To improve health of tissue, To decrease soft tissue restriction, To increase flexibility/ROM, To improve endurance, To improve balance and To reduce risk of recurrence Manual Therapy Techniques to Include: Mobilization and Soft tissue mobilization Comment: cervical traction For the Purpose of:: To decrease pain, To increase ROM, To improve nutrient delivery to tissue, To increase oxygenation perfusion, To improve health of tissue, To decrease soft tissue restriction and To increase flexibility/ROM TENS: Yes IF ES: Yes Cryotherapy (ice pack, ice massage): Yes Thermo therapy (hot pack): Yes Ultrasound (thermal/non thermal): Yes For the Purpose of:: To decrease pain, To increase ROM, To improve nutrient delivery to tissue, To increase oxygenation perfusion, To improve health of tissue and To decrease soft tissue restriction Re-Evaluation Ending Re-evaluation ending: Please do not hesitate to contact me at [phone] by phone or if you have questions or concerns regarding this new plan of care! Sincerely, Prakash Ruiz, PT, Cert MDT, OCS
--- NOTE | 2023-08-07 12:11 | HP.PTREVAL_ITS ---
Re-Evaluation Intro: Dr. Mary Savage, KANIKA, It has been my pleasure to treat RAMIRO BHAKTA over the last 19 visits for CERVICALGIA ,SPONDYLOLISTHESIS ,LUMAR SCOLIOSIS. Please see the progress note below for an update on the physical therapy plan of care! Subjective Subjective: Last visit patient was sore for 2 days everywhere Objective Objective/Function: * patient continue to benefit from skilled PT to improve strength and decrease pain cervical and lumbar needing to use fww * * Will cont to continue with below goals w* POSTURE: mild forward posture ,hips/knees flexed ,scoliosis GAIT: reciprocal pattern slow adrian antalgic gait with fww NEURO: denies paresthesia/tingling hands ,reflexes C5-6-7 1/2 ,L3-4,L4-L5 ,L5-S1 1/3 - pain in hands for OA AROM BUE: WFL shoulder flexion 130 degrees PALPATION: tender UT /levators/paraspinals R> L CERVICAL ROM: flexion min loss ,extension min/mod loss ,rotation min /mod loss ,pain MMT: BUE grossly 4-/5 ,shoulders 3+/5 ,quads/hams 4-/5 ,hip flexion 3+/5 ,ankle 4/5 FLEXABLITY:, hamstrings mod tight LUMBAR ROM: flexion mod loss ,extension mod/severe loss ,side glides mod loss Plan Plan Plan: CONT WITH POC PT INTERVETIONS CERVIACL ROM ,POSTURAL EX'S ,DLS ,MANAUL THERAPY STM /DISTRACTION , DLS AND MODALTEIS Balance/Gait/Functional tests Balance/Special Test Scores Oswestry Neck Score: 23 Goals Goals Goal 1:: Patient to be I with HEP for back and neck Goal Time Frame: 4-6 Weeks Goal Progress: Progressing Goal 2:: Patient to improve cervical ROM for function of recovery for driving Goal Time Frame: 4-6 Weeks Goal Progress: Progressing Goal 3:: Patient to improve lumbar ROM for function of recovery to put on shoes Goal Time Frame: 4-6 Weeks Goal Progress: Progressing Goal 4:: Patient to demonstrate 50% improvement with decrease pain in back and back Goal Time Frame: 4-6 Weeks Goal Progress: ( new gaol) Goal 5:: Patient to improve neck oswestry by 3-5 points to improve QOL to improve Goal Time Frame: 6-8 Weeks Goal Progress: ( update goal) Anticipated Interventions Anticipated Interventions Patient/Client Instruction: Educate patient on: Condition and Plan of Care For the Purpose of:: To decrease pain, To increase ROM, To improve nutrient delivery to tissue, To increase oxygenation perfusion, To improve muscle performance and motor function, To increase tolerance to activity/condition/position, To improve ability of physical actions for home/community/work/leisure, To improve gait and locomotor functions, To improve health of tissue, To decrease soft tissue restriction, To increase flexibility/ROM, To improve balance and To improve tolerance to ADL's Therapeutic Exercise to Include: Strength training, Body mechanics, Postural training, Flexibilty training and Dynamic Lumbar Stabilization For the Purpose of:: To decrease pain, To increase ROM, To improve muscle performance and motor function, To improve ability to perform ADL's, To increase tolerance to activity/condition/position, To improve ability of physical actions for home/community/work/leisure, To improve health of tissue, To decrease soft tissue restriction, To increase flexibility/ROM, To improve endurance, To improve balance and To reduce risk of recurrence Manual Therapy Techniques to Include: Mobilization and Soft tissue mobilization Comment: cervical traction For the Purpose of:: To decrease pain, To increase ROM, To improve nutrient delivery to tissue, To increase oxygenation perfusion, To improve health of tissue, To decrease soft tissue restriction and To increase flexibility/ROM TENS: Yes IF ES: Yes Cryotherapy (ice pack, ice massage): Yes Thermo therapy (hot pack): Yes Ultrasound (thermal/non thermal): Yes For the Purpose of:: To decrease pain, To increase ROM, To improve nutrient delivery to tissue, To increase oxygenation perfusion, To improve health of tissue and To decrease soft tissue restriction Re-Evaluation Ending Re-evaluation ending: Please do not hesitate to contact me at [phone] by phone or Fax: if you have questions or concerns regarding this new plan of care! Sincerely, Prakash Ruiz PT, Cert MDT, OCS
--- NOTE | 2023-09-23 13:41 | HP.PTEVAL_ITS ---
Patient's Visit Information Visit Information Visit Information: RAMIRO BHAKTA is a 78 year old F referred to Physical Therapy by Dr. Mary Savage DC with a diagnosis of CERVICALGIA ,SPONDYLOLISTHESIS ,LUMAR SCOLIOSIS. Date of Evaluation: 04/23/23 Physical Therapist: SUJIT Velasquez Visit Plan Frequency: 2x /Week Duration: 4 Weeks Plan: CONT WITH POC PT INTERVETIONS CERVIACL ROM ,POSTURAL EX'S ,DLS ,MANAUL THERAPY STM /DISTRACTION , DLS AND MODALTEIS Subjective Subjective: This 77 y/o female presents to physical therapy with neck and back pain . Patient fell OOB ~ 1month ago had to call police needed assist . Seen Dr Savage for chiropractor and recommended PT. Patient also had x-rays of knee . Patient pain located cervical spine and low back pain symmetrical right > left. Patient has occasional radicular symptoms .Aggravating factors walking and standing unable to bend or lifting. Alleviating factors heat and stretching. Coughing/sneezing -. Bowel/bladder -. Patient has had lumbar surgery ~ 20 years .C/O paresthesia/tingling in hands. Aggravating factors turning and flexion and lifting. Patient has dizziness denies nausea/tinnitus. Alleviating factors rest and heat. Patient plans to see Neurologist. Patient had tilt test changes with BP. Patient has right knee pain. Patient sleeping okay at night. Patient condition affects QOL ,function and ADLS . Patient has [employer] with cleaning and cooking. Goals to improve function and decrease pain. SOCIAL: single Pain Bilateral Back: Pain Intensity (Out of 10): 6 Pain Intensity Range: 10 Comment: better coming into the PT dept today. Bilateral Neck: Pain Intensity (Out of 10): 6 Pain Intensity Range: 10 L HS and piriformis: Pain Intensity (Out of 10): 4 Comment: L groin Objective Objective: POSTURE: mild forward posture ,hips/knees flexed ,scoliosis GAIT: reciprocal pattern slow adrian antalgic gait with fww NEURO: c/o paresthesia/tingling hands ,reflexes C5-6-7 1/2 ,L3-4,L4-L5 ,L5-S1 1/3 AROM BUE: WFL shoulder flexion 130 degrees PALPATION: tender UT /levators/paraspinals CERVICAL ROM: flexion min loss ,extension min loss ,rotation mod loss ,pain > right ,lateral flexion mod loss MMT: BUE grossly 4-/5 ,shoulders 3+/5 ,quads/hams 4-/5 ,hip flexion 3+/5 ,ankle 4/5 FLEXABLITY:, hamstrings mod tight LUMBAR ROM: flexion mod loss ,extension mod/severe loss ,side glides mod loss Special Tests C/S Radiculapathy - Left Upper limb tension test: Negative C/S Radiculapathy - Right Upper limb tension test: Negative C/S Radiculapathy - Left Spurlings: Positive C/S Radiculapathy - Right Spurlings: Positive C/S Radiculapathy - Left Cervical distraction: Negative C/S Radiculapathy - Right Cervical distraction: Negative C/S Radiculapathy - Left Relief test: Negative C/S Radiculapathy - Right Relief test: Negative C/S Radiculapathy - Valsalva: Negative Sharp Darin: Negative Vertebral Artery Test: Negative Alar Ligament Test: Negative L/S Slump test left side: Negative L/S Slump test right side: Negative L/S Left Straight Leg Raise: Negative L/S Right Straight Leg Raise: Negative Balance/Special Test Scores Oswestry Neck Score: 23 Dizziness Score: 42 Goals Goal 1:: Patient to be I with HEP for back and neck Goal Time Frame: 4-6 Weeks Goal 2:: Patient to improve cervical ROM for function of recovery for driving Goal Time Frame: 4-6 Weeks Goal 3:: Patient to improve lumbar ROM for function of recovery to put on shoes Goal Time Frame: 4-6 Weeks Goal 4:: Patient to demonstrate 50% improvement with decrease pain in back and back Goal Time Frame: 4-6 Weeks Goal 5:: Patient to improve neck oswestry by 3-5 points to improve QOL to improve Goal Time Frame: 6-8 Weeks Rehabilitation Potential Physical Therapy Diagnosis: Patient has cervical pain and lumbar pain which increased from slipping OOB with pain with motion testing ,positioning needs FWW for gait with decrease ROM neck and back thus benefit from skilled PT Rehabilitation Potential: Fair Anticipated Interventions Patient/Client Instruction: Educate patient on: Condition and Plan of Care For the Purpose of:: To decrease pain, To increase ROM, To improve nutrient delivery to tissue, To increase oxygenation perfusion, To improve muscle performance and motor function, To increase tolerance to activity/condition/position, To improve ability of physical actions for home/community/work/leisure, To improve gait and locomotor functions, To improve health of tissue, To decrease soft tissue restriction, To increase flexibilit y/ROM, To improve balance and To improve tolerance to ADL's Therapeutic Exercise to Include: Strength training, Body mechanics, Postural training, Flexibilty training and Dynamic Lumbar Stabilization For the Purpose of:: To decrease pain, To increase ROM, To improve muscle performance and motor function, To improve ability to perform ADL's, To increase tolerance to activity/condition/position, To improve ability of physical actions for home/community/work/leisure, To improve health of tissue, To decrease soft tissue restriction, To increase flexibility/ROM, To improve endurance, To improve balance and To reduce risk of recurrence Manual Therapy Techniques to Include: Mobilization and Soft tissue mobilization Comment: cervical traction For the Purpose of:: To decrease pain, To increase ROM, To improve nutrient delivery to tissue, To increase oxygenation perfusion, To improve health of tissue, To decrease soft tissue restriction and To increase flexibility/ROM TENS: Yes IF ES: Yes Cryotherapy (ice pack, ice massage): Yes Thermo therapy (hot pack): Yes Ultrasound (thermal/non thermal): Yes For the Purpose of:: To decrease pain, To increase ROM, To improve nutrient delivery to tissue, To increase oxygenation perfusion, To improve health of tissue and To decrease soft tissue restriction Text: Thank you for the opportunity to evaluate your patient. For Medicare and Medicare HMO plans, please review the plan of care and approve it. It will need to be FAXED BACK to us at [phone] for Medicare purposes. For Medicare only, by signing this I certify the plan of care. Please let me know if there are questions or concerns regarding this plan of care. Physician Signature: Date:
--- NOTE | 2023-10-01 14:51 | HP.PTREVAL_ITS ---
Re-Evaluation Intro: Dr. Mary Savage, KANIKA, It has been my pleasure to treat RAMIRO BHAKTA over the last 26 visits for CERVICALGIA ,SPONDYLOLISTHESIS ,LUMAR SCOLIOSIS. Please see the progress note below for an update on the physical therapy plan of care! Subjective Subjective: Patient has seen Reba for balance Seen ,plan to Neurologist Plan for medication cream Objective Objective/Function: * patient continue to benefit from skilled PT to improve strength and decrease pain cervical and lumbar needing to use fww for function and safety Will cont to continue with below goals * POSTURE: mild forward posture ,hips/knees flexed ,scoliosis GAIT: reciprocal pattern slow adrian antalgic gait with fww NEURO: denies paresthesia/tingling hands ,reflexes C5-6-7 1/2 ,L3-4,L4-L5 ,L5-S1 1/3 - pain in hands for OA AROM BUE: WFL shoulder flexion 130 degrees PALPATION: tender UT /levators/paraspinals R> L CERVICAL ROM: flexion min loss ,extension mmod loss ,rotation min /mod loss pain MMT: BUE grossly 4-/5 ,shoulders 3+/5 ,quads/hams 4-/5 ,hip flexion 3+/5 ,ankle 4/5 FLEXABLITY:, hamstrings mod tight LUMBAR ROM: flexion mod loss ,extension mod/severe loss ,side glides mod loss Plan Plan Plan: CONT WITH POC 2xweek PT INTERVETIONS CERVIACL ROM ,POSTURAL EX'S ,DLS ,MANAUL THERAPY STM /DI STRACTION , DLS AND MODALTEIS Balance/Gait/Functional tests Balance/Special Test Scores Oswestry Neck Score: 23 Dizziness Score: 42 Goals Goals Goal 1:: Patient to be I with HEP for back and neck Goal Time Frame: 4-6 Weeks Goal Progress: Progressing Goal 2:: Patient to improve cervical ROM for function of recovery for driving Goal Time Frame: 4-6 Weeks Goal Progress: Progressing Goal 3:: Patient to improve lumbar ROM for function of recovery to put on shoes Goal Time Frame: 4-6 Weeks Goal Progress: Progressing Goal 4:: Patient to demonstrate 50% improvement with decrease pain in back and back (new goal) Goal Time Frame: 4-6 Weeks Goal Progress: ( new gaol) Goal 5:: Patient to improve neck oswestry by 3-5 points to improve QOL to improve (updated goal) Goal Time Frame: 6-8 Weeks Goal Progress: ( update goal) Anticipated Interventions Anticipated Interventions Patient/Client Instruction: Educate patient on: Condition and Plan of Care For the Purpose of:: To decrease pain, To increase ROM, To improve nutrient delivery to tissue, To increase oxygenation perfusion, To improve muscle performance and motor function, To increase tolerance to activity/condition/position, To improve ability of physical actions for home/community/work/leisure, To improve gait and locomotor functions, To improve health of tissue, To decrease soft tissue restriction, To increase flexibility/ROM, To improve balance and To improve tolerance to ADL's Therapeutic Exercise to Include: Strength training, Body mechanics, Postural training, Flexibilty training and Dynamic Lumbar Stabilization For the Purpose of:: To decrease pain, To increase ROM, To improve muscle performance and motor function, To improve ability to perform ADL's, To increase tolerance to activity/condition/position, To improve ability of physical actions for home/community/work/leisure, To improve health of tissue, To decrease soft tissue restriction, To increase flexibility/ROM, To improve endurance, To improve balance and To reduce risk of recurrence Manual Therapy Techniques to Include: Mobilization and Soft tissue mobilization Comment: cervical traction For the Purpose of:: To decrease pain, To increase ROM, To improve nutrient delivery to tissue, To increase oxygenation perfusion, To improve health of tissue, To decrease soft tissue restriction and To increase flexibility/ROM TENS: Yes IF ES: Yes Cryotherapy (ice pack, ice massage): Yes Thermo therapy (hot pack): Yes Ultrasound (thermal/non thermal): Yes For the Purpose of:: To decrease pain, To increase ROM, To improve nutrient delivery to tissue, To increase oxygenation perfusion, To improve health of tissue and To decrease soft tissue restriction Re-Evaluation Ending Re-evaluation ending: Please do not hesitate to contact me at [phone] by phone or if you have questions or concerns regarding this new plan of care! Sincerely, Prakash Ruiz, PT, Cert MDT, OCS
--- NOTE | 2023-12-11 14:23 | HP.PTEVAL2_ITS ---
Patient's Visit Information Visit Information Visit Information: RAMIRO BHAKTA is a 78 year old F referred to Physical Therapy by Dr. Mary Savage DC with a diagnosis of Lightheadedness and balance issues. Date of Evaluation: 09/23/23 Physical Therapist: SUJIT Velasquez Visit Plan Frequency: 2x /Week Duration: 2 Months Plan: 2X/ week for 8 weeks for standing balance (unsupported/EO/EC/ Foam) always with a belt, standing VOR, standing core strength and LE strength, functional transfers, gait training, with HEP Subjective Subjective: Pt reports that if she moves too fast or bend over she still gets dizzy and now she gets dizzy more often. She can be sitting in a chair and moving her head and get dizzy. Her BP is a little high and they are playing with her meds. He BP is still a little high and she thinks she will go see her sooner cause she feels like it is high. She went to an Ear Nose and Throat Dr and he told her she did not have crystals and sent her on her way. She has COX on the L side when she gets up in the morning but it is allergies and it goes away after she get up. She can only see good out of one eye do to lazy eye. When she gets dizzy the room feels like it comes to the top of her head but not really room spinning. She fell hard and hit her head last summer and has had it a little before that. She can not sleep on her R side because she feels like she is going to pass out but she does not get that to the L Pain R knee pain: Intensity: Unrated back pain: Intensity: Unrated Objective Objective: Gait: Used the rolling walker and puts heavy weight through her UE's. Smooth pursuit vertical and horizontal X 30 seconds with no dizziness Horizontal head and eyes move together between 2 targets X 40 seconds and increase dizziness and calmed down fast Vertical head and eyes move together between 2 targets X 40 seconds with very slight dizziness. Pt is only able to stand up for approx 5 seconds without having to reach for something to balance her. Pt is able to turn 360 degrees holding heavily onto B Therapist forearms with discontinued steps Standing with 1 hand on the walker and was dizzy with horizontal head turns. R hip flex 8.3 and L 12.1 R knee ext 19.5 and L 21.1 R knee flex 13,1 and L 17.5 R DF 14.4 and L 15.5 Tinetti 14 Balance/Special Gait Scores Tinetti Balance Score: 8 Tinetti Gait Score: 6 Tinetti Balance & Gait Score: 14 Goals Goal 1:: I HEP Goal Time Frame: 6-8 Weeks Goal 2:: Be able to stand unsupported X 30 seconds with CGA without having to reach for // bars Goal Time Frame: 6-8 Weeks Goal 3:: Be able to standing unsupported with horizontal and vertical (painfree ROM)head turns without having LOB Goal Time Frame: 6-8 Weeks Goal 4:: Increase core strength to be able to help right oneself with standing balance for 1 minute Goal Time Frame: 6-8 Weeks Goal 5:: Increase B ankle strength to be able to do 3 X 10 standing heel and toe raises with light UE support Goal Time Frame: 6-8 Weeks Rehabilitation Potential Rehabilitation Potential: Good Anticipated Interventions Patient/Client Instruction: Educate patient on: Condition and Plan of Care For the Purpose of:: To decrease pain, To increase ROM, To improve nutrient delivery to tissue, To improve muscle performance and motor function, To improve ability to perform ADL's, To increase tolerance to activity/condition/position, To improve performance and independence with ADL's, To decrease level of supervision to perform tasks, To improve ability of physical actions for home/community/work/leisure, To improve gait and locomotor functions, To improve health of tissue, To decrease soft tissue restriction, To increase flexibility/ROM, To improve endurance, To improve balance and To improve safety with gait Therapeutic Exercise to Include: Strength training, Endurance training, Balance training, Agility training, Body mechanics, Postural training, Flexibilty training, Gait and locomotor training, Neuromotor development, Active ROM and Dynamic Lumbar Stabilization For the Purpose of:: To improve nutrient delivery to tissue, To improve muscle performance and motor function, To improve ability to perform ADL's, To increase tolerance to activity/condition/position, To improve performance and i ndependence with ADL's, To decrease level of supervision to perform tasks, To improve ability of physical actions for home/community/work/leisure, To improve gait and locomotor functions, To improve health of tissue, To decrease soft tissue restriction, To increase flexibility/ROM, To improve endurance, To improve balance and To improve safety with gait Functional Training to Include: Gait training For the Purpose of:: To improve gait and locomotor functions and To improve safety with gait text: Thank you for the opportunity to evaluate your patient. For Medicare and Medicare HMO plans, please review the plan of care and approve it. It will need to be FAXED BACK to us at [phone] for Medicare purposes. For Medicare only, by signing this I certify the plan of care. Please let me know if there are questions or concerns regarding this plan of care. Physician Signature: Date:
== END 2023-10-31 19:00 | disposition home or self-care (01) ==
LOC: PT 11:00
PROVIDERS: PCP Internal Medicine; Referring Provider Chiropractor; Visit Provider Chiropractor
DX: M54.2 Cervicalgia (principal); M43.16 Spondylolisthesis, lumbar region; M41.9 Scoliosis, unspecified
CPT/HCPCS: 97014; 97035; 97110; 97113; 97140; 97162; 97530; G0283

== ENCOUNTER → 2024-03-08 | Outpatient (CLI) | payer MEDICARE, SELFPAY ==
[2024-03-08 12:31] LABS: Absolute Lymphocyte Count 1.78 X10^3/uL (0.83-4.51); Absolute Neutrophil Count 3.9 X10^3/uL (2.0-7.7); Basophil# 0.05 X10^3/uL; Basophil% 0.7 % (0-1); Eosinophil# 0.71 X10^3/uL; Eosinophils% 9.8 % (0-5); Hematocrit 39.6 % (37-47); Hemoglobin 12.7 g/dL (12.0-15.0); Lymphocyte # 1.78 X10^3/ul (0.83-4.51); Lymphocyte % 24.7 % (19-41); Mean Corp Hgb Conc 32.1 g/dL (32-36); Mean Corpuscular Hgb 30.6 pg (27.0-32.0); Mean Corpuscular Volume 95.4 fL (81-99); Mean Platelet Vol. 10.3 fl (6.2-12.0); Monocyte# 0.74 X10^3/uL; Monocyte% 10.2 % (0-10); NRBC Flagged by Analyzer 0 % (0-5); Neutrophil # 3.92 X10^3/uL (2.7-7.7); Neutrophil % 54.3 % (47-70); Platelet Count 155 K/mm3 (150-450); RBC Distribution Width CV 13.3 % (11.6-14.6); RBC Distribution Width SD 46.7 fl (35.1-43.9); Red Blood Count 4.15 M/mm3 (4.2-5.4); White Blood Count 7.2 K/mm3 (4.4-11.0)
[2024-03-08 13:19] LABS: ALB/GLOB Ratio 1.1 RATIO (0.9-2.4); AST(SGOT) 49 U/L (15-37); Alanine Aminotransfer ALT/SGPT 22 U/L (13-56); Albumin, Serum 3.6 g/dL (3.2-5.0); Alkaline Phosphatase 169 U/L (45-117); Anion Gap 6 (5-15); BUN 22 mg/dL (7-18); BUN/Creat Ratio 21.4 RATIO (10-20); Calcium,Total 9.6 mg/dL (8.5-10.1); Chloride 106 mmol/L (98-107); Cholesterol 148 mg/dL (200); Creatinine, Serum 1.03 mg/dL (0.55-1.02); EST Glomerular Filtration Rate 55 mL/min (>60); Est Glom Filt Rate - Afr Amer 66 mL/min (>60); Globulin 3.4 g/dL (2.2-4.2); Glucose 164 mg/dL (74-106); High Density Lipoprotein 50 mg/dL; Potassium 4.4 mmol/L (3.5-5.1); Sodium Level 138 mmol/L (136-145); Triglycerides 270 mg/dL; Very Low Density Lipoprotein 54 mg/dL (5-40)
== END | disposition home or self-care (01) ==
LOC: BIMLAB 10:08
PROVIDERS: PCP Internal Medicine; Referring Provider Internal Medicine; Visit Provider Internal Medicine
DX: E11.9 Type 2 diabetes mellitus without complications (principal); E55.9 Vitamin D deficiency, unspecified; I10 Essential (primary) hypertension
CPT/HCPCS: 36415; 80053; 80061; 82306; 82607; 85025

== ENCOUNTER 2024-05-11 11:30 | Outpatient (RCR) | payer MEDICARE, SELFPAY ==
--- NOTE | 2023-12-11 11:56 | HP.PTREVAL ---
Re-Evaluation Intro: Dr. Mary Savage, KANIKA, It has been my pleasure to treat RAMIRO BHAKTA over the last 8 visits for Lightheadedness/ balance. Please see the progress note below for an update on the physical therapy plan of care! Subjective Subjective: Pt reports that she is still having lightheadedness. She is ordered and MRI of head and neck. She had an infected tooth and had to have 4 visits for that and a root canal and crown. The heart Dr thinks that she does not drink enough water. Her dizziness does not happen that often like it used. She has been dizzy today when she was bending over to put on the support stockings. She reports that when she bends over she always gets SOB.. she stops and waits and then she can continue. Pt wants to work on balancing and strengthening as she feels that she is very weak. She normally uses her walker. She feels that PT was helping before. Since she was off with all the other health issues she has not been able to do anything. Objective Objective/Function: Gait: walks with a front wheeled walker with bend over posture and SOB and fatigue walking back to the treatment room Sit to stand: Uses arms and able to get up on first attempt Standing unsupported balance with EO X 30 seconds and EC X 12 seconds but very unsteady Plan Plan Plan: 2X/ week for 8 weeks for standing balance (unsupported/EO/EC/ Foam) always with a belt, standing VOR, standing core strength and LE strength, functional transfers, gait training, with HEP Balance/Gait/Functional tests Balance/Special Test Scores Lower Extremity Functional Score: 25 Goals Goals Goal 1:: I HEP Goal Time Frame: 6-8 Weeks Goal 2:: Be able to walk back to the treatment room with more upright posture without SOB and wanting to stop Goal Time Frame: 6-8 Weeks Goal 3:: Be able to standing unsupported with horizontal and vertical (painfree ROM)head turns without having LOB Goal Time Frame: 6-8 Weeks Goal 4:: Increase core strength to be able to help right oneself with standing balance for 1 minute Goal Time Frame: 6-8 Weeks Goal 5:: Increase B ankle strength to be able to do 3 X 10 standing heel and toe raises with light UE support Goal Time Frame: 6-8 Weeks Goal 6:: Be able to stand unsupported X 30 seconds standing on foam with CGA without having to reach for // bars Goal Time Frame: 6-8 Weeks Anticipated Interventions Anticipated Interventions Patient/Client Instruction: Educate patient on: Condition and Plan of Care For the Purpose of:: To decrease pain, To increase ROM, To improve nutrient delivery to tissue, To improve muscle performance and motor function, To improve ability to perform ADL's, To increase tolerance to activity/condition/position, To improve performance and independence with ADL's, To decrease level of supervision to perform tasks, To improve ability of physical actions for home/community/work/leisure, To improve gait and locomotor functions, To improve health of tissue, To decrease soft tissue restriction, To increase flexibility/ROM, To improve endurance, To improve balance and To improve safety with gait Therapeutic Exercise to Include: Strength training, Endurance training, Balance training, Postural training, Flexibilty training, Gait and locomotor training, Neuromotor development and Active ROM For the Purpose of:: To decrease pain, To increase ROM, To improve nutrient delivery to tissue, To increase oxygenation perfusion, To improve muscle performance and motor function, To improve ability to perform ADL's, To increase tolerance to activity/condition/position, To improve performance and independence with ADL's, To decrease level of supervision to perform tasks, To improve ability of physical actions for home/community/work/leisure, To improve gait and locomotor functions, To improve health of tissue, To decrease soft tissue restriction, To increase flexibility/ROM, To improve endurance, To improve balance and To improve safety with gait Functional Training to Include: Gait training For the Purpose of:: To improve gait and locomotor functions and To improve safety with gait Re-Evaluation Ending Re-evaluation ending: Please do not hesitate to contact me at [phone] by phone or if you have questions or concerns regarding this new plan of care! Sincerely, Reba Brady, MPT
--- NOTE | 2023-12-11 13:42 | HP.PTRE(2)_ITS ---
Re-Evaluation Intro: Dr. Christelle Hernandez MD, It has been my pleasure to treat RAMIRO BHAKTA over the last 32 visits for CERVICALGIA ,SPONDYLOLISTHESIS ,LUMAR SCOLIOSIS.. Please see the progress note below for an update on the physical therapy plan of care! Subjective Subjective: Patient stated that she has not nany her for 1 month due to infection and other medical problems Objective Objective/Function/Assessment: * patient continue to benefit from skilled PT to improve strength and decrease pain cervical and lumbar needing to use fww for function and safety as as well patient has been ill past month Will cont to continue with below goals are appropriate * POSTURE: mild forward posture ,hips/knees flexed ,scoliosis GAIT: reciprocal pattern slow adrian antalgic gait with fww NEURO: denies paresthesia/tingling hands ,reflexes C5-6-7 1/2 ,L3-4,L4-L5 ,L5-S1 1/3 - pain in hands for OA AROM BUE: WFL shoulder flexion 130 degrees PALPATION: tender UT /levators/paraspinals R> L CERVICAL ROM: flexion min loss ,extension mmod loss ,rotation min /mod loss pain MMT: BUE grossly 4-/5 ,shoulders 3+/5 ,quads/hams 4-/5 ,hip flexion 3+/5 ,ankle 4/5 FLEXABLITY:, hamstrings mod tight LUMBAR ROM: flexion mod loss ,extension mod/severe loss ,side glides mod loss C/S Radiculapathy - Left Upper limb tension test: Negative C/S Radiculapathy - Right Upper limb tension test: Negative C/S Radiculapathy - Left Spurlings: Positive C/S Radiculapathy - Right Spurlings: Positive C/S Radiculapathy - Left Cervical distraction: Negative C/S Radiculapathy - Right Cervical distraction: Negative C/S Radiculapathy - Left Relief test: Negative C/S Radiculapathy - Right Relief test: Negative C/S Radiculapathy - Valsalva: Negative Sharp Darin: Negative Vertebral Artery Test: Negative Alar Ligament Test: Negative L/S Slump test left side: Negative L/S Slump test right side: Negative L/S Left Straight Leg Raise: Negative L/S Right Straight Leg Raise: Negative Plan Plan Plan: Plan: CONT WITH POC 2xweek PT INTERVETIONS CERVIACL ROM ,POSTURAL EX'S ,DLS ,MANAUL THERAPY STM /DISTRAC TION , DLS AND MODALTEIS * THIS CHART 2* Goals Goals Goal 1:: Patient to be I with HEP for neck and back Goal Time Frame: 4-6 Weeks Goal Progress: Progressing Goal 2:: Patient decrease neck and back pain by 50% to improve function and ADLS Goal Time Frame: 4-6 Weeks Goal Progress: Progressing Goal 3:: Patient to improve neck oswestry score by 5 points to improve QOL and function Goal Time Frame: 4-6 Weeks Goal Progress: Progressing Goal 4:: Patient to improve cervical 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 Goal Progress: Progressing Goal 5:: Patient to improve lumbar ROM for function of recovery to put on shoes Goal Time Frame: 4-6 Weeks Goal Progress: Progressing Anticipated Interventions Anticipated Interventions Patient/Client Instruction: Educate patient on: Condition and Plan of Care For the Purpose of:: To decrease pain, To increase ROM, To improve muscle performance and motor function, To improve ability to perform ADL's, To increase tolerance to activity/condition/position, To improve health of tissue, To decrease soft tissue restriction, To increase flexibility/ROM, To improve safety with gait and To improve tolerance to ADL's Therapeutic Exercise to Include: Strength training, Endurance training, Balance training, Body mechanics, Postural training, Flexibilty training, Gait and locomotor training and Dynamic Lumbar Stabilization For the Purpose of:: To decrease pain, To improve muscle performance and motor function, To improve ability to perform ADL's, To increase tolerance to activity/condition/position, To decrease level of supervision to perform tasks, To improve ability of physical actions for home/community/work/leisure, To improve gait and locomotor functions, To increase flexibility/ROM and To improve tolerance to ADL's Manual Therapy Techniques to Include: Mobilization and Soft tissue mobilization Comment: neck For the Purpose of:: To decrease pain, To increase ROM, To improve nutrient delivery to tissue, To increase oxygenation perfusion, To improve health of tissue and To decrease soft tissue restriction TENS: Yes IF ES: Yes Cryotherapy (ice pack, ice massage): Yes Thermo therapy (hot pack): Yes Ultrasound (thermal/non thermal): Yes For the Purpose of:: To decrease pain, To increase ROM, To improve nutrient delivery to tissue, To increase oxygenation perfusion, To improve health of tissue and To decrease soft tissue restriction Re-Evaluation Ending Re-evaluation ending: Please do not hesitate to contact me at [phone] by phone or if you have questions or concerns regarding this new plan of care! Sincerely, Prakash Ruiz, PT, Cert MDT, OCS
--- NOTE | 2023-12-11 14:20 | HP.PTREVAL ---
Re-Evaluation Intro: Dr. Christelle Hernandez MD, It has been my pleasure to treat RAMIRO BHAKTA over the last 8 visits for Lightheadedness/ balance. Please see the progress note below for an update on the physical therapy plan of care! Subjective Subjective: Pt reports that she is still having lightheadedness. She is ordered and MRI of head and neck. She had an infected tooth and had to have 4 visits for that and a root canal and crown. The heart Dr thinks that she does not drink enough water. Her dizziness does not happen that often like it used. She has been dizzy today when she was bending over to put on the support stockings. She reports that when she bends over she always gets SOB.. she stops and waits and then she can continue. Pt wants to work on balancing and strengthening as she feels that she is very weak. She normally uses her walker. She feels that PT was helping before. Since she was off with all the other health issues she has not been able to do anything. Objective Objective/Function: Gait: walks with a front wheeled walker with bend over posture and SOB and fatigue walking back to the treatment room Sit to stand: Uses arms and able to get up on first attempt Standing unsupported balance with EO X 30 seconds and EC X 12 seconds but very unsteady Plan Plan Plan: 2X/ week for 8 weeks for standing balance (unsupported/EO/EC/ Foam) always with a belt, standing VOR, standing core strength and LE strength, functional transfers, gait training, with HEP Balance/Gait/Functional tests Balance/Special Test Scores Oswestry Neck Score: 23 Lower Extremity Functional Score: 25 Goals Goals Goal 1:: I HEP Goal Time Frame: 6-8 Weeks Goal 2:: Be able to walk back to the treatment room with more upright posture without SOB and wanting to stop Goal Time Frame: 6-8 Weeks Goal 3:: Be able to standing unsupported with horizontal and vertical (painfree ROM)head turns without having LOB Goal Time Frame: 6-8 Weeks Goal 4:: Increase core strength to be able to help right oneself with standing balance for 1 minute Goal Time Frame: 6-8 Weeks Goal 5:: Increase B ankle strength to be able to do 3 X 10 standing heel and toe raises with light UE support Goal Time Frame: 6-8 Weeks Goal 6:: Be able to stand unsupported X 30 seconds standing on foam with CGA without having to reach for // bars Goal Time Frame: 6-8 Weeks Anticipated Interventions Anticipated Interventions Patient/Client Instruction: Educate patient on: Condition and Plan of Care For the Purpose of:: To decrease pain, To increase ROM, To improve nutrient delivery to tissue, To improve muscle performance and motor function, To improve ability to perform ADL's, To increase tolerance to activity/condition/position, To improve performance and independence with ADL's, To decrease level of supervision to perform tasks, To improve ability of physical actions for home/community/work/leisure, To improve gait and locomotor functions, To improve health of tissue, To decrease soft tissue restriction, To increase flexibility/ROM, To improve endurance, To improve balance and To improve safety with gait Therapeutic Exercise to Include: Strength training, Endurance training, Balance training, Postural training, Flexibilty training, Gait and locomotor training, Neuromotor development and Active ROM For the Purpose of:: To decrease pain, To increase ROM, To improve nutrient delivery to tissue, To increase oxygenation perfusion, To improve muscle performance and motor function, To improve ability to perform ADL's, To increase tolerance to activity/condition/position, To improve performance and independence with ADL's, To decrease level of supervision to perform tasks, To improve ability of physical actions for home/community/work/leisure, To improve gait and locomotor functions, To improve health of tissue, To decrease soft tissue restriction, To increase flexibility/ROM, To improve endurance, To improve balance and To improve safety with gait Functional Training to Include: Gait training For the Purpose of:: To improve gait and locomotor functions and To improve safety with gait Re-Evaluation Ending Re-evaluation ending: Please do not hesitate to contact me at [phone] by phone or if you have questions or concerns regarding this new plan of care! Sincerely, Reba Brady MPT
--- NOTE | 2024-01-20 12:29 | HP.PTREVAL ---
Re-Evaluation Intro: Dr. Christelle Hernandez MD, It has been my pleasure to treat RAMIRO BHAKTA over the last 8 visits for Lightheadedness/ balance. Please see the progress note below for an update on the physical therapy plan of care! 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 Patient states this is the only thing that causes her to get dizzy. Patient did require seated rest breaks to recover to baseline between each bout. Plan Plan Plan: 2X/ week for 8 weeks for standing balance (unsupported/EO/EC/ Foam) always with a belt, standing VOR, standing core strength and LE strength, functional transfers, gait training, with HEP Balance/Gait/Functional tests Balance/Special Test Scores Oswestry Neck Score: 26 Lower Extremity Functional Score: 25 Goals Goals Goal 1:: I HEP Goal Time Frame: 6-8 Weeks Goal 2:: Be able to walk back to the treatment room with more upright posture without SOB and wanting to stop Goal Time Frame: 6-8 Weeks Goal 3:: Be able to standing unsupported with horizontal and vertical (painfree ROM)head turns without having LOB Goal Time Frame: 6-8 Weeks Goal 4:: Increase core strength to be able to help right oneself with standing balance for 1 minute Goal Time Frame: 6-8 Weeks Goal 5:: Increase B ankle strength to be able to do 3 X 10 standing heel and toe raises with light UE support Goal Time Frame: 6-8 Weeks Goal 6:: Be able to stand unsupported X 30 seconds standing on foam with CGA without having to reach for // bars Goal Time Frame: 6-8 Weeks Anticipated Interventions Anticipated Interventions Patient/Client Instruction: Educate patient on: Condition and Plan of Care For the Purpose of:: To decrease pain, To increase ROM, To improve nutrient delivery to tissue, To improve muscle performance and motor function, To improve ability to perform ADL's, To increase tolerance to activity/condition/position, To improve performance and independence with ADL's, To decrease level of supervision to perform tasks, To improve ability of physical actions for home/community/work/leisure, To improve gait and locomotor functions, To improve health of tissue, To decrease soft tissue restriction, To increase flexibility/ROM, To improve endurance, To improve balance and To improve safety with gait Therapeutic Exercise to Include: Strength training, Endurance training, Balance training, Postural training, Flexibilty training, Gait and locomotor training, Neuromotor development and Active ROM For the Purpose of:: To decrease pain, To increase ROM, To improve nutrient delivery to tissue, To increase oxygenation perfusion, To improve muscle performance and motor function, To improve ability to perform ADL's, To increase tolerance to activity/condition/position, To improve performance and independence with ADL's, To decrease level of supervision to perform tasks, To improve ability of physical actions for home/community/work/leisure, To improve gait and locomotor functions, To improve health of tissue, To decrease soft tissue restriction, To increase flexibility/ROM, To improve endurance, To improve balance and To improve safety with gait Functional Training to Include: Gait training For the Purpose of:: To improve gait and locomotor functions and To improve safety with gait Re-Evaluation Ending Re-evaluation ending: Please do not hesitate to contact me at [phone] by phone or if you have questions or concerns regarding this new plan of care! Sincerely, Prakash Ruiz, PT, Cert MDT, OCS
--- NOTE | 2024-01-20 12:47 | HP.PTREVAL_ITS ---
Re-Evaluation Intro: Dr. Christelle Hernandez MD, It has been my pleasure to treat RAMIRO BHAKTA over the last 9 visits for Lightheadedness/ balance. Please see the progress note below for an update on the physical therapy plan of care! 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 Patient states this is the only thing that causes her to get dizzy. Patient did require seated rest breaks to recover to baseline between each bout. Plan Plan Plan: 2X/ week for 8 weeks for standing balance (unsupported/EO/EC/ Foam) always with a belt, standing VOR, standing core strength and LE strength, functional transfers, gait training, with HEP Balance/Gait/Functional tests Balance/Special Test Scores Oswestry Neck Score: 26 Lower Extremity Functional Score: 25 Goals Goals Goal 1:: I HEP Goal Time Frame: 6-8 Weeks Goal 2:: Be able to walk back to the treatment room with more upright posture without SOB and wanting to stop Goal Time Frame: 6-8 Weeks Goal Progress: Progressing Goal 3:: Be able to standing unsupported with horizontal and vertical (painfree ROM)head turns without having LOB Goal Time Frame: 6-8 Weeks Goal 4:: Increase core strength to be able to help right oneself with standing balance for 1 minute Goal Time Frame: 6-8 Weeks Goal 5:: Increase B ankle strength to be able to do 3 X 10 standing heel and toe raises with light UE support Goal Time Frame: 6-8 Weeks Goal Progress: Goal Met Goal 6:: Be able to stand unsupported X 30 seconds standing on foam with CGA without having to reach for // bars Goal Time Frame: 6-8 Weeks Anticipated Interventions Anticipated Interventions Patient/Client Instruction: Educate patient on: Condition and Plan of Care For the Purpose of:: To decrease pain, To increase ROM, To improve nutrient del dolly to tissue, To improve muscle performance and motor function, To improve ability to perform ADL's, To increase tolerance to activity/condition/position, To improve performance and independence with ADL's, To decrease level of supervision to perform tasks, To improve ability of physical actions for home/community/work/leisure, To improve gait and locomotor functions, To improve health of tissue, To decrease soft tissue restriction, To increase flexibility/ROM, To improve endurance, To improve balance and To improve safety with gait Therapeutic Exercise to Include: Strength training, Endurance training, Balance training, Postural training, Flexibilty training, Gait and locomotor training, Neuromotor development and Active ROM For the Purpose of:: To decrease pain, To increase ROM, To improve nutrient delivery to tissue, To increase oxygenation perfusion, To improve muscle performance and motor function, To improve ability to perform ADL's, To increase tolerance to activity/condition/position, To improve performance and independence with ADL's, To decrease level of supervision to perform tasks, To improve ability of physical actions for home/community/work/leisure, To improve gait and locomotor functions, To improve health of tissue, To decrease soft tissue restriction, To increase flexibility/ROM, To improve endurance, To impro ve balance and To improve safety with gait Functional Training to Include: Gait training For the Purpose of:: To improve gait and locomotor functions and To improve safety with gait Re-Evaluation Ending Re-evaluation ending: Please do not hesitate to contact me at [phone] by phone or if you have questions or concerns regarding this new plan of care! Sincerely, Reba Brady MPT
--- NOTE | 2024-01-20 14:03 | HP.PTRE(2) ---
Re-Evaluation Intro: Dr. Christelle Hernandez MD, It has been my pleasure to treat RAMIRO BHAKTA over the last 40 visits for CERVICALGIA ,SPONDYLOLISTHESIS ,LUMAR SCOLIOSIS.. Please see the progress note below for an update on the physical therapy plan of care! Subjective Subjective: Doing okay.. No falls Plan to see next month Objective Objective/Function/Assessment: * patient continue to benefit from skilled PT to improve strength and decrease pain cervical and lumbar needing to use fww for function and safety thus continue with below goals are appropriate * POSTURE: mild forward posture ,hips/knees flexed ,scoliosis GAIT: reciprocal pattern slow adrian antalgic gait with fww NEURO: denies paresthesia/tingling hands ,reflexes C5-6-7 1/2 ,L3-4,L4-L5 ,L5-S1 1/3 - pain in hands for OA AROM BUE: WFL shoulder flexion 130 degrees PALPATION: tender UT /levators/paraspinals R> L CERVICAL ROM: flexion min loss ,extension mmod loss ,rotation min /mod loss pain MMT: BUE grossly 4-/5 ,shoulders 3+/5 ,quads right 29.8 ,left 30.1 hams right 17.1 ,left 16.3 ,hip flexion right 14.4 .left ,13.2,ankle 4/5 FLEXABLITY:, hamstrings mod tight LUMBAR ROM: flexion mod loss ,extension mod/severe loss ,side glides mod loss C/S Radiculapathy - Left Upper limb tension test: Negative C/S Radiculapathy - Right Upper limb tension test: Negative C/S Radiculapathy - Left Spurlings: Positive C/S Radiculapathy - Right Spurlings: Positive C/S Radiculapathy - Left Cervical distraction: Negative C/S Radiculapathy - Right Cervical distraction: Negative C/S Radiculapathy - Left Relief test: Negative C/S Radiculapathy - Right Relief test: Negative C/S Radiculapathy - Valsalva: Negative Sharp Darin: Negative Vertebral Artery Test: Negative Alar Ligament Test: Negative L/S Slump test left side: Negative L/S Slump test right side: Negative L/S Left Straight Leg Raise: Negative L/S Right Straight Leg Raise: Negative Plan Plan Plan: Plan: CONT WITH POC 2xweek PT INTERVETIONS CERVIACL ROM ,POSTURAL EX'S ,DLS ,MANAUL THERAPY STM /DISTRACTION , DLS AND MODALTEIS * THIS CHART 2* Goals Goals Goal 1:: Patient to be I with HEP for neck and back Goal Time Frame: 4-6 Weeks Goal Progress: Progressing Goal 2:: Patient decrease neck and back pain by 50% to improve function and ADLS Goal Time Frame: 4-6 Weeks Goal Progress: Progressing Goal 3:: Patient to improve neck oswestry score by 5 points to improve QOL and function Goal Time Frame: 4-6 Weeks Goal Progress: Progressing Goal 4:: Patient to improve cervical 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 Goal Progress: Progressing Goal 5:: Patient to improve lumbar ROM for function of recovery to put on shoes Goal Time Frame: 4-6 Weeks Goal Progress: Progressing Goal 6:: Patient to improve strength BLE quads/hams/hip peak force by 5-10# to function( new goal) Anticipated Interventions Anticipated Interventions Patient/Client Instruction: Educate patient on: Condition and Plan of Care For the Purpose of:: To decrease pain, To increase ROM, To improve muscle performance and motor function, To improve ability to perform ADL's, To increase tolerance to activity/condition/position, To improve health of tissue, To decrease soft tissue restriction, To increase flexibility/ROM, To improve safety with gait and To improve tolerance to ADL's Therapeutic Exercise to Include: Strength training, Endurance training, Balance training, Body mechanics, Postural training, Flexibilty training, Gait and locomotor training and Dynamic Lumbar Stabilization For the Purpose of:: To decrease pain, To improve muscle performance and motor function, To improve ability to perform ADL's, To increase tolerance to activity/condition/position, To decrease level of supervision to perform tasks, To improve ability of physical actions for home/community/work/leisure, To improve gait and locomotor functions, To increase flexibility/ROM and To improve tolerance to ADL's Manual Therapy Techniques to Include: Mobilization and Soft tissue mobilization Comment: neck For the Purpose of:: To decrease pain, To increase ROM, To improve nutrient delivery to tissue, To increase oxygenation perfusion, To improve health of tissue and To decrease soft tissue restriction TENS: Yes IF ES: Yes Cryotherapy (ice pack, ice massage): Yes Thermo therapy (hot pack): Yes Ultrasound (thermal/non thermal): Yes For the Purpose of:: To decrease pain, To increase ROM, To improve nutrient delivery to tissue, To increase oxygenation perfusion, To improve health of tissue and To decrease soft tissue restriction Re-Evaluation Ending Re-evaluation ending: Please do not hesitate to contact me at [phone] by phone or if you have questions or concerns regarding this new plan of care! Sincerely, Prakash Ruiz, PT, Cert MDT, OCS
--- NOTE | 2024-02-17 12:55 | HP.PTREVAL ---
Re-Evaluation Intro: Dr. Christelle Hernandez MD, It has been my pleasure to treat RAMIRO BHAKTA over the last 13 visits for Lightheadedness/ balance. Please see the progress note below for an update on the physical therapy plan of care! Subjective Subjective: Now when she stands she got dizzy that came on for now reason. She does not get dizzy as often. She is not sure if it is her sugar. She feels that her lower legs are stronger. She is painful today due to the rainy weather. This morning she took 3 steps without the walker and she did ok. Objective Objective/Function: Standing vertical and horizontal X [address] and then lost balance FW and used the // bars... back really hurt standing there and X 12 vertical.... same with increase in back pain Standing on foam Standing unsupported Plan Plan Plan: 2X/ week for 4 additional weeks for standing balance (unsupported/EO/EC/ Foam) always with a belt, standing VOR, standing core strength and LE strength, functional transfers, gait training, with HEP Balance/Gait/Functional tests Balance/Special Test Scores Oswestry Neck Score: 26 Lower Extremity Functional Score: 34 Goals Goals Goal 1:: I HEP Goal Time Frame: 6-8 Weeks Goal Progress: Goal Met Goal 2:: Be able to walk back to the treatment room with more upright posture without SOB and wanting to stop Goal Time Frame: 6-8 Weeks Goal Progress: Progressing Goal 3:: Be able to standing unsupported with horizontal (X 15 to each direction) and vertical (X 12 to each direction) (painfree ROM)head turns without having LOB Goal Time Frame: 6-8 Weeks Goal 4:: Increase core strength to be able to help right oneself with standing balance for 1 minute (30 seconds) Goal Time Frame: 6-8 Weeks Goal Progress: Progressing Goal 5:: Increase B ankle strength to be able to do 3 X 10 standing heel and toe raises with light UE support Goal Time Frame: 6-8 Weeks Goal Progress: Goal Met Goal 6:: Be able to stand unsupported X 30 seconds standing on foam with CGA without having to reach for // bars (3 seconds) Goal Time Frame: 6-8 Weeks Goal Progress: Not Progressing Anticipated Interventions Anticipated Interventions Patient/Client Instruction: Educate patient on: Condition and Plan of Care For the Purpose of:: To decrease pain, To increase ROM, To improve nutrient delivery to tissue, To improve muscle performance and motor function, To improve ability to perform ADL's, To increase tolerance to activity/condition/position, To improve performance and independence with ADL's, To decrease level of supervision to perform tasks, To improve ability of physical actions for home/community/work/leisure, To improve gait and locomotor functions, To improve health of tissue, To decrease soft tissue restriction, To increase flexibility/ROM, To improve endurance, To improve balance and To improve safety with gait Therapeutic Exercise to Include: Strength training, Endurance training, Balance training, Postural training, Flexibilty training, Gait and locomotor training, Neuromotor development and Active ROM For the Purpose of:: To decrease pain, To increase ROM, To improve nutrient delivery to tissue, To increase oxygenation perfusion, To improve muscle performance and motor function, To improve ability to perform ADL's, To increase tolerance to activity/condition/position, To improve performance and independence with ADL's, To decrease level of supervision to perform tasks, To improve ability of physical actions for home/community/work/leisure, To improve gait and locomotor functions, To improve health of tissue, To decrease soft tissue restriction, To increase flexibility/ROM, To improve endurance, To improve balance and To improve safety with gait Functional Training to Include: Gait training For the Purpose of:: To improve gait and locomotor functions and To improve safety with gait Re-Evaluation Ending Re-evaluation ending: Please do not hesitate to contact me at [phone] by phone or if you have questions or concerns regarding this new plan of care! Sincerely, SUJIT Velasquez
--- NOTE | 2024-03-29 15:56 | HP.PTREVAL_ITS ---
<Statement entered by Prakash Ruiz PT, Cert MDT, OCS - 03/29/24 16:00> This document has been reviewed and signed. Re-Evaluation Intro: Dr. Christelle Hernandez MD, It has been my pleasure to treat RAMIRO BHAKTA over the last 19 visits for Lightheadedness/ balance. Please see the progress note below for an update on the physical therapy plan of care! Subjective Subjective: pt hurt her L elbow since the last session. Objective Objective/Function: ex altered to adjust for her elbow pain. pt willing to do the balance ex but noted LOB and difficulty holding her balance w/o grabbing ll bars. Plan Plan Plan: 2X/ week for 4 additional weeks for standing balance (unsupported/EO/EC/ Foam) always with a belt, standing VOR, standing core strength and LE strength, functional transfers, gait training, with HEP Balance/Gait/Functional tests Balance/Special Test Scores Oswestry Neck Score: 26 Lower Extremity Functional Score: 34 Goals Goals Goal 1:: I HEP Goal Time Frame: 6-8 Weeks Goal Progress: Goal Met Goal 2:: Be able to walk back to the treatment room with more upright posture without SOB and wanting to stop Goal Time Frame: 6-8 Weeks Goal Progress: Progressing Goal 3:: Be able to standing unsupported with horizontal (X 15 to each direction) and vertical (X 12 to each direction) (painfree ROM)head turns without having LOB Goal Time Frame: 6-8 Weeks Goal 4:: Increase core strength to be able to help right oneself with standing balance for 1 minute (30 seconds) Goal Time Frame: 6-8 Weeks Goal Progress: Progressing Goal 5:: Increase B ankle strength to be able to do 3 X 10 standing heel and toe raises with light UE support Goal Time Frame: 6-8 Weeks Goal Progress: Goal Met Goal 6:: Be able to stand unsupported X 30 seconds standing on foam with CGA without having to reach for // bars (3 seconds) Goal Time Frame: 6-8 Weeks Goal Progress: Not Progressing Anticipated Interventions Anticipated Interventions Patient/Client Instruction: Educate patient on: Condition and Plan of Care For the Purpose of:: To decrease pain, To increase ROM, To improve nutrient delivery to tissue, To improve muscle performance and motor function, To improve ability to perform ADL's, To increase tolerance to activity/condition/position, To improve performance and independence with ADL's, To decrease level of supervision to perform tasks, To improve ability of physical actions for home/community/work/leisure, To improve gait and locomotor functions, To improve health of tissue, To decrease soft tissue restriction, To increase flexibility/ROM, To improve endurance, To improve balance and To improve safety with gait Therapeutic Exercise to Include: Strength training, Endurance training, Balance training, Postural training, Flexibilty training, Gait and locomotor training, Neuromotor development and Active ROM For the Purpose of:: To decrease pain, To increase ROM, To improve nutrient delivery to tissue, To increase oxygenation perfusion, To improve muscle performance and motor function, To improve ability to perform ADL's, To increase tolerance to activity/condition/position, To improve performance and independence with ADL's, To decrease level of supervision to perform tasks, To improve ability of physical actions for home/community/work/leisure, To improve gait and locomotor functions, To improve health of tissue, To decrease soft tissue restriction, To increase flexibility/ROM, To improve endurance, To improve balance and To improve safety with gait Functional Training to Include: Gait training For the Purpose of:: To improve gait and locomotor functions and To improve safety with gait Re-Evaluation Ending Re-evaluation ending: Please do not hesitate to contact me at [phone] by phone or if you have questions or concerns regarding this new plan of care! Sincerely, Prakash Ruiz, PT, Cert MDT, OCS
--- NOTE | 2024-03-29 16:10 | HP.PTREVAL_ITS ---
Re-Evaluation Intro: Dr. Christelle Hernandez MD, It has been my pleasure to treat RAMIRO BHAKTA over the last 20 visits for Lightheadedness/ balance. Please see the progress note below for an update on the physical therapy plan of care! Subjective Subjective: Pt reports that she is not getting dizzy as much. She thinks that her balance is a little better. She got dizzy this morning when she bent over really fast. She is not getting dizzy as fast. She has had no falls. 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 Feel pt balance is limited at this time due to back/leg pain. Gait: pt is walking holding onto the walker with flexed posture. Standing on blue foam: Standing horizontal head turns X 15 to each side with no dizziness Standing vertical head turns X 14 with some LOB Standing on blue foam: not able to stand on blue foam for more than 1 second and has to reach for // bars Plan Plan Plan: 2X/ week for 3 additional weeks (add in endurance walking) for standing balance (unsupported/EO/EC/ Foam) always with a belt, gait endurance, standing VOR, standing core strength and LE strength, functional transfers, gait training, with HEP Balance/Gait/Functional tests Balance/Special Test Scores Oswestry Neck Score: 26 Lower Extremity Functional Score: 34 Goals Goals Goal 1:: I HEP Goal Time Frame: 6-8 Weeks Goal Progress: Goal Met Goal 2:: Be able to walk back to the treatment room with more upright posture without SOB and wanting to stop Goal Time Frame: 6-8 Weeks Goal Progress: Progressing Goal 3:: Be able to standing unsupported with horizontal (X 15 to each direction) and vertical (X 12 to each direction) (painfree ROM)head turns without having LOB Goal Time Frame: 6-8 Weeks Goal Progress: Progressing Goal 4:: Increase core strength to be able to help right oneself with standing balance for 1 minute (30 seconds) Goal Time Frame: 6-8 Weeks Goal Progress: Goal Met Goal 5:: Be able to walk around Dept twice in a row with no rest breaks Goal Time Frame: 4-6 Weeks Goal Progress: Goal Met Goal 6:: Be able to stand unsupported X 30 seconds standing on foam with CGA without having to reach for // bars (3 seconds) Goal Time Frame: 6-8 Weeks Goal Progress: Not Progressing Anticipated Interventions Anticipated Interventions Patient/Client Instruction: Educate patient on: Condition and Plan of Care For the Purpose of:: To decrease pain, To increase ROM, To improve nutrient delivery to tissue, To improve muscle performance and motor function, To improve ability to perform ADL's, To increase tolerance to activity/condition/position, To improve performance and independence with ADL's, To decrease level of superv ision to perform tasks, To improve ability of physical actions for home/community/work/leisure, To improve gait and locomotor functions, To improve health of tissue, To decrease soft tissue restriction, To increase flexibility/ROM, To improve endurance, To improve balance and To improve safety with gait Therapeutic Exercise to Include: Strength training, Endurance training, Balance training, Postural training, Flexibilty training, Gait and locomotor training, Neuromotor development and Active ROM For the Purpose of:: To decrease pain, To increase ROM, To improve nutrient delivery to tissue, To increase oxygenation perfusion, To improve muscle performance and motor function, To improve ability to perform ADL's, To increase tolerance to activity/condition/position, To improve performance and independence with ADL's, To decrease level of supervision to perform tasks, To improve ability of physical actions for home/community/work/leisure, To improve gait and locomotor functions, To improve health of tissue, To decrease soft tissue restriction, To increase flexibility/ROM, To improve endurance, To improve balance and To improve safety with gait Functional Training to Include: Gait training For the Purpose of:: To improve gait and locomotor functions and To improve safety with gait Re-Evaluation Ending Re-evaluation ending: Please do not hesitate to contact me at [phone] by phone or if you have questions or concerns regarding this new plan of care! Sincerely, Reba Brady, MPT
--- NOTE | 2024-03-29 19:37 | HP.PTRE(2)_ITS ---
Re-Evaluation Intro: Dr. Christelle Hernandez MD, It has been my pleasure to treat RAMIRO BHAKTA over the last 52 visits for CERVICALGIA ,SPONDYLOLISTHESIS ,LUMAR SCOLIOSIS.. Please see the progress note below for an update on the physical therapy plan of care! Subjective Subjective: Doing worse with pain in neck and elbow and PT was helping with improving strength with legs Objective Objective/Function/Assessment: * patient continue to benefit from skilled PT to improve strength and decrease pain cervical and lumbar needing to use fww for function and safety ,patient making slow progress along with complexity issues t hus continue with below goals are appropriate * POSTURE: mild forward posture ,hips/knees flexed ,scoliosis GAIT: reciprocal pattern slow adrian antalgic gait with fww NEURO: denies paresthesia/tingling hands ,reflexes C5-6-7 1/2 ,L3-4,L4-L5 ,L5-S1 1/3 - pain in hands for OA AROM BUE: WFL shoulder flexion 130 degrees PALPATION: tender UT /levators/paraspinals R> L CERVICAL ROM: flexion min loss ,extension mmod loss ,rotation min /mod loss pain MMT: BUE grossly 4-/5 ,shoulders 3+/5 ,quads right 29.1 ,left 31.1 hams right 18.1 ,left 28.3 ,hip flexion right 24.4 .left ,13.2,ankle 4/5 FLEXABLITY:, hamstrings mod tight LUMBAR ROM: flexion mod loss ,extension severe loss ,side glides mod/severe loss right Plan Plan Plan: PT INTERVETIONS CERVIACL ROM ,POSTURAL EX'S ,DLS ,MANAUL THERAPY STM /DISTRACTION , DLS AND MODALTEIS * THIS CHART 2* Goals Goals Goal 1:: Patient to be I with HEP for neck and back Goal Time Frame: 4-6 Weeks Goal Progress: Progressing Goal 2:: Patient decrease neck and back pain by 50% to improve function and ADLS Goal Time Frame: 4-6 Weeks Goal Progress: Progressing Goal 3:: Patient to improve neck oswestry score by 5 points to improve QOL and function Goal Time Frame: 4-6 Weeks Goal Progress: Progressing Goal 4:: Patient to improve cervical 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 Goal Progress: Progressing Goal 5:: Patient to improve lumbar ROM for function of recovery to put on shoes Goal Time Frame: 4-6 Weeks Goal Progress: Progressing Goal 6:: Patient to improve strength BLE quads/hams/hip peak force by 5-10# to function( new goal) Goal Progress: Progressing Anticipated Interventions Anticipated Interventions Patient/Client Instruction: Educate patient on: Condition and Plan of Care For the Purpose of:: To decrease pain, To increase ROM, To improve muscle performance and motor function, To improve ability to perform ADL's, To increase tolerance to activity/condition/position, To improve health of tissue, To decrease soft tissue restriction, To increase flexibility/ROM, To improve safety with gait and To improve tolerance to ADL's Therapeutic Exercise to Include: Strength training, Endurance training, Balance training, Body mechanics, Postural training, Flexibilty training, Gait and locomotor training and Dynamic Lumbar Stabilization For the Purpose of:: To decrease pain, To improve muscle performance and motor function, To improve ability to perform ADL's, To increase tolerance to activity/condition/position, To decrease level of supervision to perform tasks, To improve ability of physical actions for home/community/work/leisure, To improve gait and locomotor functions, To increase flexibility/ROM and To improve tolerance to ADL's Manual Therapy Techniques to Include: Mobilization and Soft tissue mobilization Comment: neck For the Purpose of:: To decrease pain, To increase ROM, To improve nutrient delivery to tissue, To increase oxygenation perfusion, To improve health of tissue and To decrease soft tissue restriction TENS: Yes IF ES: Yes Cryotherapy (ice pack, ice massage): Yes Thermo therapy (hot pack): Yes Ultrasound (thermal/non thermal): Yes For the Purpose of:: To decrease pain, To increase ROM, To improve nutrient delivery to tissue, To increase oxygenation perfusion, To improve health of tissue and To decrease soft tissue restriction Re-Evaluation Ending Re-evaluation ending: Please do not hesitate to contact me at [phone] by phone or if you have questions or concerns regarding this new plan of care! Sincerely, Prakash Ruiz PT, Cert MDT, OCS
--- NOTE | 2024-05-11 12:26 | HP.PTDCSUM ---
Discharge Summary D/C summary: It has been my pleasure to treat RAMIRO BHAKTA referred by Dr. Christelle Hernandez MD, with the diagnosis of Lightheadedness/ balance for a total of 25 visit(s). Discharge Date: 05/11/24 Please see the following information for a summary of their discharge status. Subjective Subjective: Pt reports that if she leans too far forward she gets dizzy now and she will go and get the neck MRI. She is going to try and call today to get it done. The dizziness was getting better but now some days are more worse than others. Dr Hernandez ordered the MRI and it is ordered. She can not keep her head in the machine at the eye Dr because it makes her dizzy. The vertical head movements make her dizzy and she has been dizzy ever since. She has a real stiff neck still. She has been working on her balance and thinks she has had some improvement but none recently. Pain R knee: Pain Intensity (Out of 10): 5 hands: Pain Intensity (Out of 10): 0 L elbow: Pain Intensity (Out of 10): 8 back: Pain Intensity (Out of 10): 0 Overall Improvement % Improvement: 60 Objective Objective/Function: Walking back to the treatment room the pt had some SOB but not as much as she had during her initial eval. Be able to standing unsupported with horizontal (X 8 to each direction) Standing vertical head turns not assessed due to the fact that she knows that it will make her dizzy. Goals Goal 1:: I HEP Goal Progress: Goal Met Goal 2:: Be able to walk back to the treatment room with more upright posture without SOB and wanting to stop Goal Progress: Progressing Goal 3:: Be able to standing unsupported with horizontal (X 15 to each direction) and vertical (X 12 to each direction) (painfree ROM)head turns without having LOB Goal Progress: Progressing Goal 4:: Increase core strength to be able to help right oneself with standing balance for 1 minute (30 seconds) Goal Progress: Goal Met Goal 5:: Be able to walk around Dept twice in a row with no rest breaks Goal Progress: Goal Met Goal 6:: Be able to stand unsupported X 30 seconds standing on foam with CGA without having to reach for // bars (3 seconds) Goal Progress: Not Progressing Plan Plan: 2X/ week for 3 additional weeks (add in endurance walking) for standing balance (unsupported/EO/EC/ Foam) always with a belt, gait endurance, standing VOR, standing core strength and LE strength, functional transfers, gait training, with HEP D/C Information Discharge Comments: DC PT to get further diagnostics d/c sentence: If there are questions or concerns regarding this patient's physical therapy, please feel free to call me at [phone]. Thank you for the referral of this patient. Sincerely, Prakash Ruiz, PT, Cert MDT, OCS Balance/Gait/Functional tests Balance/Special Test Scores Oswestry Neck Score: 26 Lower Extremity Functional Score: 35 Improvement % Improvement: 60
== END 2024-05-11 19:00 | disposition home or self-care (01) ==
LOC: PT 11:30
PROVIDERS: PCP Internal Medicine; Referring Provider Internal Medicine; Visit Provider Internal Medicine
DX: R42 Dizziness and giddiness (principal); R26.89 Other abnormalities of gait and mobility
CPT/HCPCS: 97110; 97140; 97164; 97530

== ENCOUNTER → 2024-07-14 | Outpatient (CLI) | payer MEDICARE, SELFPAY ==
[2024-07-14 16:10] LABS: ALB/GLOB Ratio 1.1 RATIO (0.9-2.4); AST(SGOT) 44 U/L (15-37); Alanine Aminotransfer ALT/SGPT 23 U/L (13-56); Albumin, Serum 3.7 g/dL (3.2-5.0); Alkaline Phosphatase 155 U/L (45-117); Anion Gap 7 (5-15); BUN 26 mg/dL (7-18); BUN/Creat Ratio 24.1 RATIO (10-20); Calcium,Total 9.4 mg/dL (8.5-10.1); Chloride 108 mmol/L (98-107); Creatinine, Serum 1.08 mg/dL (0.55-1.02); EST Glomerular Filtration Rate 52 mL/min (>60); Est Glom Filt Rate - Afr Amer 63 mL/min (>60); Globulin 3.5 g/dL (2.2-4.2); Glucose 109 mg/dL (74-106); Potassium 4.7 mmol/L (3.5-5.1); Protein, Total 7.2 g/dL (6.4-8.2); Sodium Level 140 mmol/L (136-145)
== END | disposition home or self-care (01) ==
LOC: BIMLAB 12:18
PROVIDERS: PCP Internal Medicine; Referring Provider Internal Medicine; Visit Provider Internal Medicine
DX: I10 Essential (primary) hypertension (principal); M19.91 Primary osteoarthritis, unspecified site
CPT/HCPCS: 36415; 80053; 84443

== ENCOUNTER 2025-03-28 12:00 | Outpatient (RCR) | payer MEDICARE, SELFPAY ==
--- NOTE | 2024-11-04 13:13 | HP.PTEVAL_ITS ---
Patient's Visit Information Visit Information Visit Information: RAMIRO BHAKTA is a 79 year old F referred to Physical Therapy by HIRAL Cao with a diagnosis of CERVICALAGIA. Date of Evaluation: 11/04/24 Physical Therapist: Prakash Ruiz, PT, Cert MDT, OCS Visit Plan Frequency: 2x /Week Duration: 4 Weeks Plan: PT INTERVENTIONS MANUAL THERAPY STM CERVICAL,US ,CERVICAL ROM ,POSTURAL EX'S ,AND ACTIVITY MODIFICATION Subjective Subjective: This 79 y/o female presents to physical therapy cervical pain. Patient has had cervical many years. Patient has had PT in past. Patient seen DR and recommended PT for neck .Patient has h/o dizziness is better. No recent imaging no change in medication.Aggrevting factors lifting OH,turning neck ,supi ne supine in bed. Alleviating factors rest . Denies tinnitus /nausea/dizziness. Patient c/o paresthesia/tingling in hands. Patient pain affects sleeping. Patient decrease vision is decreased . Patient has had no falls. Patient has no pain management. No ortho consult. Patient has multiple complexity issues affects current impairments . Patient goals to decrease pain. SOCIAL:single VOCATION : RETIRED Pain Right Neck: Pain Intensity (Out of 10): 7 Pain Intensity Range: 10 Comment: WORSE Objective Objective: POSTURE: mild forward posture rounded shoulders head forward NEURO: c/o paresthesia/tingling ,reflexes C5-6-7 2/3 GAIT: reciprocal pattern with fww PALPATION: tender UT/levator ,paraspinals AROM: BUE WFL MMT: 4/5 except shoulders 3+/5 CERVICAL ROM: flexion min loss ,extension mod loss ,lateral flexion mod/severe loss ,rotation mod loss Special Tests C/S Radiculapathy - Left Upper limb tension test: Negative C/S Radiculapathy - Right Upper limb tension test: Negative C/S Radiculapathy - Left Spurlings: Positive C/S Radiculapathy - Right Spurlings: Positive C/S Radiculapathy - Left Cervical distraction: Negative C/S Radiculapathy - Right Cervical distraction: Negative Sharp Darin: Negative Vertebral Artery Test: Negative Alar Ligament Test: Negative Balance/Special Test Scores Oswestry Neck Score: 29 Goals Goal 1:: Patient to be I with HEP for cervical spine Goal Time Frame: 4-6 Weeks Goal 2:: Patient to demonstrate 40% improvement with less pain and improved function Goal Time Frame: 4-6 Weeks Goal 3:: Patient to improve cervical ROM for function of recovery to drive Goal Time Frame: 4-6 Weeks Goal 4:: Patient to improve neck oswestry score by 5 points to improve QOL Goal Time Frame: 4-6 Weeks Rehabilitation Potential Physical Therapy Diagnosis: This patient has cervical pain with decrease ROM ,weakness BUE ,pain with positioning and motioning affects ADL's thus benefit from skilled PT Rehabilitation Potential: Fair Anticipated Interventions Patient/Client Instruction: Educate patient on: Condition and Plan of Care For the Purpose of:: To decrease pain, To increase ROM, To improve muscle perfo rmance and motor function, To improve ability to perform ADL's, To increase tolerance to activity/condition/position, To improve performance and independence with ADL's, To improve ability of physical actions for home/community/work/leisure, To improve health of tissue, To decrease soft tissue restriction, To increase flexibility/ROM and To improve tolerance to ADL's Therapeutic Exercise to Include: Strength training, Passive ROM, Dynamic Lumbar Stabilization and Scapular Strength/Stabilization For the Purpose of:: To decrease pain, To increase ROM, To improve muscle performance and motor function, To improve ability to perform ADL's, To increase tolerance to activity/condition/position, To improve ability of physical actions for home/community/work/leisure, To improve health of tissue, To decrease soft tissue restriction, To increase flexibility/ROM and To improve tolerance to ADL's Manual Therapy Techniques to Include: Mobilization and Soft tissue mobilization Comment: CERVICAL For the Purpose of:: To decrease pain, To increase ROM, To improve nutrient delivery to tissue, To increase oxygenation perfusion, To improve health of tissue and To decrease soft tissue restriction TENS: Yes IF ES: Yes Cryotherapy (ice pack, ice massage): Yes Thermo therapy (hot pack): Yes Ultrasound (thermal/non thermal): Yes For the Purpose of:: To decrease pain, To increase ROM, To improve nutrient delivery to tissue, To increase oxygenation perfusion, To improve health of tissue and To decrease soft tissue restriction Text: Thank you for the opportunity to evaluate your patient. For Medicare and Medicare HMO plans, please review the plan of care and approve it. It will need to be FAXED BACK to us at [phone] for Medicare purposes. For Medicare only, by signing this I certify the plan of care. Please let me know if there are questions or concerns regarding this plan of care. Physician Signature: Date:
--- NOTE | 2024-12-14 12:21 | HP.PTREVAL ---
Re-Evaluation Intro: Lauren Arias, MAGGY-C, It has been my pleasure to treat RAMIRO BHAKTA over the last 7 visits for CERVICALAGIA. Please see the progress note below for an update on the physical therapy plan of care! Subjective Subjective: PT is helping [employer] and pain shooting behind neck Turning neck better when driving Feels good after PT Objective Objective/Function: Patient making progress with increase Cervical and decrease pain thus will benefit from skilled PT with goals appropriate and nd adjusted POSTURE: mild forward posture rounded shoulders head forward NEURO: c/o paresthesia/tingling in hands ,reflexes C5-6-7 2/3 GAIT: reciprocal pattern with fww PALPATION: tender UT/levator ,paraspinals , AROM: BUE WFL MMT: 4/5 except shoulders 4-/5 CERVICAL ROM: flexion WFL ,extension MIN/mod loss ,lateral flexion mod loss ,rotation in/mod loss Plan Plan Plan: Requesting 8 more visits PT INTERVENTIONS MANUAL THERAPY STM CERVICAL,US ,CERVICAL ROM ,POSTURAL EX'S ,AND ACTIVITY MODIFICATION Balance/Gait/Functional tests Balance/Special Test Scores Oswestry Neck Score: 29 Goals Goals Goal 1:: Patient to be I with HEP for cervical spine Goal Time Frame: 4-6 Weeks Goal Progress: Goal Met Goal 2:: Patient to demonstrate 50% improvement with less pain and improved function ( new goal) Goal Time Frame: 4-6 Weeks Goal 3:: Patient to improve cervical ROM for function of recovery to drive Goal Time Frame: 4-6 Weeks Goal Progress: Progressing Goal 4:: Patient to improve neck oswestry score by 5 points to improve QOL Goal Time Frame: 4-6 Weeks Goal Progress: Progressing Anticipated Interventions Anticipated Interventions Patient/Client Instruction: Educate patient on: Condition and Plan of Care For the Purpose of:: To decrease pain, To increase ROM, To improve muscle performance and motor function, To improve ability to perform ADL's, To increase tolerance to activity/condition/position, To improve performance and independence with ADL's, To improve ability of physical actions for home/community/work/leisure, To improve health of tissue, To decrease soft tissue restriction, To increase flexibility/ROM and To improve tolerance to ADL's Therapeutic Exercise to Include: Strength training, Passive ROM, Dynamic Lumbar Stabilization and Scapular Strength/Stabilization For the Purpose of:: To decrease pain, To increase ROM, To improve muscle performance and motor function, To improve ability to perform ADL's, To increase tolerance to activity/condition/position, To improve ability of physical actions for home/community/work/leisure, To improve health of tissue, To decrease soft tissue restriction, To increase flexibility/ROM and To improve tolerance to ADL's Manual Therapy Techniques to Include: Mobilization and Soft tissue mobilization Comment: CERVICAL For the Purpose of:: To decrease pain, To increase ROM, To improve nutrient delivery to tissue, To increase oxygenation perfusion, To improve health of tissue and To decrease soft tissue restriction TENS: Yes IF ES: Yes Cryotherapy (ice pack, ice massage): Yes Thermo therapy (hot pack): Yes Ultrasound (thermal/non thermal): Yes For the Purpose of:: To decrease pain, To increase ROM, To improve nutrient delivery to tissue, To increase oxygenation perfusion, To improve health of tissue and To decrease soft tissue restriction Re-Evaluation Ending Re-evaluation ending: Please do not hesitate to contact me at [phone] by phone or if you have questions or concerns regarding this new plan of care! Sincerely, Prakash Ruiz, PT, Cert MDT, OCS
--- NOTE | 2025-01-17 15:19 | HP.OTEVAL_ITS ---
Patient's Visit Information Visit Information Visit Information: RAMIRO BHAKTA is a 79 year old F, referred to Occupational Therapy by HIRAL Cao, with a diagnosis of M19.91 Primary Osteoarthritis. Date of Evaluation: 01/13/25 Occupational Therapist: Eve Gonzalez Subjective Subjective: Pt is an 79 y/o female who was referred by Dr. Hernandez to outpatient occupational therapy with diagnosis of primary osteoarthritis of bilateral hands with more significant OA in L hand. She reports placing scleral contacts in has become more difficult due to pain in hands. Pt reports she is L handed. Pt reports her daughter lives with her to assist with heavy chores around the home. ADLs Comments: Pt reports difficulty with buttons, tying shoes, requires increased time with zippers, reports difficulty with use of silverware (has built-up and weighted utensils she has yet to use), cups need to have handle, difficulty with curling iron, utilizes electric toothbrush for oral care, picking up pots and pans, placing pans into/out of oven, reports she will frequently drop items, unable to grab heavy items out of fridge. Pain L Hand: Current Pain Intensity: 5 Pain Intensity Range: 3, 4, 5, 6, 7, 8, 9 and 10 R Hand: Current Pain Intensity: 3 Pain Intensity Range: 0, 1, 2 and 3 Objective Objective/Observation: Pt arrives with daughter ROM MP: I: 60/70, M: 65/75, R: 68/80, P: 60/80 PIP: I: 95/90, M: 95/90, R: 90/95, P: 78/75 DIP: I: 55/62, M: 60/60, R: 60/60, P: 75/75 ROM Comments: Requires increased time for opposition but able to complete. Strength Wrapper Layer And Examiner Soft Work: R:20 L:20 Lateral Pinch: R: 4 L: 2 Tripod Pinch: R: 2 L: 0 Tip-to-Tip Pinch: R: 4 L: 1 Strength Comments: Noted compensation with tip to tip pinch utilizing lateral sides of index fingers Quick DASH-Disab of Arm,Shoulder& Hand Quick DASH Score: 72.7250 Goals Goal:Wrapper Layer And Examiner Soft Work/Pinch strength at least 75% of unaffected hand: Yes Goal:No pain with affected hand use: Yes Goal:Full use of affected hand in daily activities including work: Yes Comment: Quick Dash Other Goal: Pt will increase quick dash score by at least 10 points (72.7) for improved independence in functional daily tasks. Rehabilitation Rehabilitation Potential: Good Visit Plan Frequency: 1-2x /Week Duration: 4-6 Weeks General Plan: Pt presents with pain to bilateral hands with more significant pain to L hand, referred by Dr. Hernandez to outpatient occupational therapy with diagnosis of primary osteoarthritis of bilateral hands with more significant OA in L hand. Pt would benefit from outpatient occupational therapy 1-2x/wk for 4-6 weeks for improved ROM, strengthening, and pain management for improved independence in ADLs/IADLs and preferred daily tasks. TEXT: Thank you for the opportunity to evaluate your patient. For Medicare and Medicare HMO plans, please review the plan of care and approve it. It will need to be FAXED BACK to us at [phone] for Medicare purposes. Please let me know if there are questions or concerns regarding this plan of care. Physician Signature: Date:__
--- NOTE | 2025-01-21 13:02 | HP.PTEVAL2_ITS ---
Patient's Visit Information Visit Information Visit Information: RAMIRO BHAKTA is a 79 year old F referred to Physical Therapy by HIRAL Cao with a diagnosis of ABNORMALITIES OF GAIT AND MOBILITY. Date of Evaluation: 01/21/25 Physical Therapist: Prakash Ruiz, PT, Cert MDT, OCS Visit Plan Frequency: 2x /Week Duration: 6 Weeks Plan: PT INTERVENTIONS PROGRESSIVE BALANCE TRAINING ,BLE STRENGTHENING , FUNCTIONAL STRENGTHENING AND =ENDURANCE PROGRAM Subjective Subjective: This 79 y/o female presents to physical therapy with gait and bal ance abnormalities. Patient has had balance and gait problems many years. Patient has h/o dizziness but improved . Patient has no falls . Patient also has bilateral TKA . Patient denies paresthesia/tingling . Patient sleeping okay. Patient has difficulty with steps with cane. Patient stephanie with 4 steps with rail. Walk in shower with grab bars.Needs assist with cooking . Patient daughter does cleaning. Patient has difficulty standing 20 mins . Patient has macular degeneration ,unable to see left eye. No recent imaging .Patient condition affects QOL and function. Patient gaols to get stronger. SOCIAL: single VOCATION: School bus Pain Bilateral Back: Intensity: 8 Pain Intensity Range: 9 Bilateral Foot: Intensity: 7 Pain Intensity Range: 9 and 10 Objective Objective: POSTURE: mild forward posture ,hips/knees flexed ,scoliosis asymmetries GAIT: reciprocal pattern slow adrian antalgic gait with fww hips/knees flexed NEURO: denies paresthesia/tingling hands ,reflexes C5-6-7 1/2 ,L3-4,L4-L5 ,L5-S1 1/3 AROM BUE: WFL shoulder flexion 130 degrees PALPATION: paraspinals R> L BALANCE: FAIR+ with fww MMT: ( peak force) quads right 23.6 ,left 21.8 hams right 17.1 ,left 21.3 ,hip flexion right 14.0 .left , 11.7 ,13.2,ankle 4/5 FLEXABLITY:, hamstrings mod tight LUMBAR ROM: flexion mod loss ,extension severe loss ,side glides mod/severe loss right Balance/Special Gait Scores CATSIB Score (Max score 120 seconds): 46 TUG Test Time Seconds: 32.1 Goals Goal 1:: Patient to be I with HEP for strengthening Goal Time Frame: 4-6 Weeks Goal 2:: Patient to improve tug score < 30 sec to improve safe gait Goal Time Frame: 4-6 Weeks Goal 3:: Patient to improve CTSIBE by 5-10 points to improve QOL and function. Goal Time Frame: 4-6 Weeks Goal 4:: Patient to improve peak force quads/hams/hip by 5-10 # strength to imp rove function Goal Time Frame: 4-6 Weeks Goal 5:: Patient to improve LFES score by 5 -10 points to improve QOL and function Goal Time Frame: 4-6 Weeks Rehabilitation Potential Physical Therapy Diagnosis: This patient has balance deficits and weakness causes impairments with gait and function thus benefit from skilled PT Rehabilitation Potential: Fair Anticipated Interventions Patient/Client Instruction: Educate patient on: Condition For the Purpose of:: To decrease pain, To improve muscle performance and motor function, To improve ability to perform ADL's, To increase tolerance to activity/condition/position, To improve ability of physical actions for home/community/work/leisure, To improve gait and locomotor functions, To improve endurance, To improve balance and To improve tolerance to ADL's Therapeutic Exercise to Include: Strength training, Endurance training, Balance training, Postural training, Flexibilty training, Gait and locomotor training and Active ROM For the Purpose of:: To decrease pain, To increase ROM, To improve muscle performance and motor function, To improve ability to perform ADL's, To increase tolerance to activity/condition/position, To improve ability of physical actions for home/community/work/leisure, To improve gait and locomotor functions, To improve endurance, To improve balance and To improve tolerance to ADL's text: Thank you for the opportunity to evaluate your patient. For Medicare and Medicare HMO plans, please review the plan of care and approve it. It will need to be FAXED BACK to us at [phone] for Medicare purposes. For Medicare only, by signing this I certify the plan of care. Please let me know if there are questions or concerns regarding this plan of care. Physician Signature: Date:
--- NOTE | 2025-01-21 13:10 | HP.PTDCSUM ---
Discharge Summary D/C summary: It has been my pleasure to treat RAMIRO BHAKTA referred by SIMIN CaoC, with the diagnosis of CERVICALAGIA for a total of 13 visit(s). Discharge Date: Please see the following information for a summary of their discharge status. Subjective Subjective: Doing better with ROM ,stiffness when turning my neck Pain Right Neck: Pain Intensity (Out of 10): 7 L side of neck: Pain Intensity (Out of 10): 4 L elbow: Pain Intensity (Out of 10): 8 R SI: Pain Intensity (Out of 10): 7 L hand: Pain Intensity (Out of 10): 5 Overall Improvement % Improvement: 30 Objective Objective/Function: Patient has made nice progress with ROM cervical POSTURE: mild forward posture rounded shoulders head forward NEURO: c/o paresthesia/tingling ,reflexes C5-6-7 2/3 GAIT: reciprocal pattern with fww PALPATION: tender UT/levator ,paraspinals AROM: BUE WFL MMT: 4/5 except shoulders 3+/5 CERVICAL ROM: flexion min loss ,extension mIN loss ,lateral flexion mod loss ,rotation mod loss Goals Goal 1:: Patient to be I with HEP for cervical spine Goal Progress: Goal Met Goal 2:: Patient to demonstrate 50% improvement with less pain and improved function ( new goal) Goal Progress: Progressing Goal 3:: Patient to improve cervical ROM for function of recovery to drive Goal Progress: Progressing Goal 4:: Patient to improve neck oswestry score by 5 points to improve QOL Goal Progress: Goal Met Plan Plan: D/C TO HEP D/C Information d/c sentence: If there are questions or concerns regarding this patient's physical therapy, please feel free to call me at [phone]. Thank you for the referral of this patient. Sincerely, Prakash Ruiz, PT, Cert MDT, OCS Balance/Gait/Functional tests Balance/Special Test Scores Oswestry Neck Score: 21 Lower Extremity Functional Score: 19 Improvement % Improvement: 30
--- NOTE | 2025-02-22 12:36 | HP.PTREVAL ---
Re-Evaluation Intro: Lauren Arias, MAGGY-C, It has been my pleasure to treat RAMIRO BHAKTA over the last 13 visits for CERVICALAGIA. Please see the progress note below for an update on the physical therapy plan of care! Subjective Subjective: Doing better with ROM ,stiffness when turning my neck Objective Objective/Function: Patient has made nice progress with ROM cervical POSTURE: mild forward posture rounded shoulders head forward NEURO: c/o paresthesia/tingling ,reflexes C5-6-7 2/3 GAIT: reciprocal pattern with fww PALPATION: tender UT/levator ,paraspinals AROM: BUE WFL MMT: 4/5 except shoulders 3+/5 CERVICAL ROM: flexion min loss ,extension mIN loss ,lateral flexion mod loss ,rotation mod loss Plan Plan Plan: D/C TO HEP Balance/Gait/Functional tests Balance/Special Test Scores Oswestry Neck Score: 21 Lower Extremity Functional Score: 19 TUG Test Time Seconds: 33.9 Tug Test: >30sec.=impaired mobility Goals Goals Goal 1:: Patient to be I with HEP for cervical spine Goal Time Frame: 4-6 Weeks Goal Progress: Goal Met Goal 2:: Patient to demonstrate 50% improvement with less pain and improved function ( new goal) Goal Time Frame: 4-6 Weeks Goal Progress: Progressing Goal 3:: Patient to improve cervical ROM for function of recovery to drive Goal Time Frame: 4-6 Weeks Goal Progress: Progressing Goal 4:: Patient to improve neck oswestry score by 5 points to improve QOL Goal Time Frame: 4-6 Weeks Goal Progress: Goal Met Anticipated Interventions Anticipated Interventions Patient/Client Instruction: Educate patient on: Condition and Plan of Care For the Purpose of:: To decrease pain, To increase ROM, To improve muscle performance and motor function, To improve ability to perform ADL's, To increase tolerance to activity/condition/position, To improve performance and independence with ADL's, To improve ability of physical actions for home/community/work/leisure, To improve health of tissue, To decrease soft tissue restriction, To increase flexibility/ROM and To improve tolerance to ADL's Therapeutic Exercise to Include: Strength training, Passive ROM, Dynamic Lumbar Stabilization and Scapular Strength/Stabilization For the Purpose of:: To decrease pain, To increase ROM, To improve muscle performance and motor function, To improve ability to perform ADL's, To increase tolerance to activity/condition/position, To improve ability of physical actions for home/community/work/leisure, To improve health of tissue, To decrease soft tissue restriction, To increase flexibility/ROM and To improve tolerance to ADL's Manual Therapy Techniques to Include: Mobilization and Soft tissue mobilization Comment: CERVICAL For the Purpose of:: To decrease pain, To increase ROM, To improve nutrient delivery to tissue, To increase oxygenation perfusion, To improve health of tissue and To decrease soft tissue restriction TENS: Yes IF ES: Yes Cryotherapy (ice pack, ice massage): Yes Thermo therapy (hot pack): Yes Ultrasound (thermal/non thermal): Yes For the Purpose of:: To decrease pain, To increase ROM, To improve nutrient delivery to tissue, To increase oxygenation perfusion, To improve health of tissue and To decrease soft tissue restriction Re-Evaluation Ending Re-evaluation ending: Please do not hesitate to contact me at [phone] by phone or if you have questions or concerns regarding this new plan of care! Sincerely, Prakash Ruiz, PT, Cert MDT, OCS
--- NOTE | 2025-02-22 12:37 | HP.PTEVAL2 ---
Patient's Visit Information Visit Information Visit Information: RAMIRO BHAKTA is a 79 year old F referred to Physical Therapy by HIRAL Cao with a diagnosis of ABNORMALITIES OF GAIT AND MOBILITY. Date of Evaluation: 01/21/25 Physical Therapist: Prakash Ruiz, PT, Cert MDT, OCS Visit Plan Frequency: 2x /Week Duration: 6 Weeks Plan: Requesting 8 more visits PT INTERVENTIONS PROGRESSIVE BALANCE TRAINING ,BLE STRENGTHENING , FUNCTIONAL STRENGTHENING AND =ENDURANCE PROGRAM Subjective Subjective: This 79 y/o female presents to physical therapy with gait and balance abnormalities. Patient has had balance and gait problems many years. Patient has h/o dizziness but improved . Patient has no falls . Patient also has bilateral TKA . Patient denies paresthesia/tingling . Patient sleeping okay. Patient has difficulty with steps with cane. Patient stephanie with 4 steps with rail. Walk in shower with grab bars.Needs assist with cooking . Patient daughter does cleaning. Patient has difficulty standing 20 mins . Patient has macular degeneration ,unable to see left eye. No recent imaging .Patient condition affects QOL and function. Patient gaols to get stronger. SOCIAL: single VOCATION: School bus Pain Bilateral Back: Intensity: 4 Pain Intensity Range: 9 Bilateral Foot: Intensity: 7 Pain Intensity Range: 9 and 10 Objective Objective: POSTURE: mild forward posture ,hips/knees flexed ,scoliosis asymmetries GAIT: reciprocal pattern slow adrian antalgic gait with fww hips/knees flexed NEURO: denies paresthesia/tingling hands ,reflexes C5-6-7 1/2 ,L3-4,L4-L5 ,L5-S1 1/3 AROM BUE: WFL shoulder flexion 130 degrees PALPATION: paraspinals R> L BALANCE: FAIR+ with fww MMT: ( peak force) quads right 23.6 ,left 21.8 hams right 17.1 ,left 21.3 ,hip flexion right 14.0 .left , 11.7 ,13.2,ankle 4/5 FLEXABLITY:, hamstrings mod tight LUMBAR ROM: flexion mod loss ,extension severe loss ,side glides mod/severe loss right Balance/Special Gait Scores CATSIB Score (Max score 120 seconds): 47 TUG Test Time Seconds: 32.1 Goals Goal 1:: Patient to be I with HEP for strengthening Goal Time Frame: 4-6 Weeks Goal 2:: Patient to improve tug score < 30 sec to improve safe gait Goal Time Frame: 4-6 Weeks Goal 3:: Patient to improve CTSIBE by 5-10 points to improve QOL and function. Goal Time Frame: 4-6 Weeks Goal 4:: Patient to improve peak force quads/hams/hip by 5-10 # strength to improve function( new goals) Goal Time Frame: 4-6 Weeks Goal 5:: Patient to improve LFES score by 5 -10 points to improve QOL and function Goal Time Frame: 4-6 Weeks Rehabilitation Potential Physical Therapy Diagnosis: This patient has balance deficits and weakness causes impairments with gait and function thus benefit from skilled PT Rehabilitation Potential: Fair Anticipated Interventions Patient/Client Instruction: Educate patient on: Condition For the Purpose of:: To decrease pain, To improve muscle performance and motor function, To improve ability to perform ADL's, To increase tolerance to activity/condition/position, To improve ability of physical actions for home/community/work/leisure, To improve gait and locomotor functions, To improve endurance, To improve balance and To improve tolerance to ADL's Therapeutic Exercise to Include: Strength training, Endurance training, Balance training, Postural training, Flexibilty training, Gait and locomotor training and Active ROM For the Purpose of:: To decrease pain, To increase ROM, To improve muscle performance and motor function, To improve ability to perform ADL's, To increase tolerance to activity/condition/position, To improve ability of physical actions for home/community/work/leisure, To improve gait and locomotor functions, To improve endurance, To improve balance and To improve tolerance to ADL's text: Thank you for the opportunity to evaluate your patient. For Medicare and Medicare HMO plans, please review the plan of care and approve it. It will need to be FAXED BACK to us at [phone] for Medicare purposes. For Medicare only, by signing this I certify the plan of care. Please let me know if there are questions or concerns regarding this plan of care. Physician Signature: Date:
--- NOTE | 2025-04-07 12:46 | HP.PTDCS(2) ---
Discharge Summary D/C Summary: It has been my pleasure to treat RAMIRO BHAKTA referred by HIRAL Cao, with the diagnosis of ABNORMALITIES OF GAIT AND MOBILITY for a total of 1 visit(s). Discharge Date: Please see the following information for a summary of their discharge status. Subjective Subjective: Doing okay ,plan to see eye surgery Overall better with gait and balance Patient going to grocery and DR Overall Improvement % Improvement: 30 Objective Objective/Function/Assessment: POSTURE: mild forward posture ,hips/knees flexed ,scoliosis asymmetries GAIT: reciprocal pattern slow adrian antalgic gait with fww hips/knees flexed NEURO: denies paresthesia/tingling hands ,reflexes C5-6-7 1/2 ,L3-4,L4-L5 ,L5-S1 1/3 AROM BUE: WFL shoulder flexion 130 degrees PALPATION: paraspinals R> L BALANCE: FAIR+ with fww MMT: ( peak force) quads right 23.7 ,left 22.8 hams right 17.8 ,left 21.3 ,hip flexion right 14.0 .left , 11.7 ,13.2,ankle 4/5 FLEXABLITY:, hamstrings mod tight LUMBAR ROM: flexion mod loss ,extension severe loss ,side glides mod/severe loss right Goals Patient Goals: Improve Mobility, Improve Function, Decrease Pain, Alleviate Pain, Walk Normal, Maneuver Steps and Improve ROM Goal 1:: Patient to be I with HEP for strengthening Goal Progress: Goal Met Goal 2:: Patient to improve tug score < 30 sec to improve safe gait Goal Progress: Progressing Goal 3:: Patient to improve CTSIBE by 5-10 points to improve QOL and function. Goal Progress: Progressing Goal 4:: Patient to improve peak force quads/hams/hip by 5-10 # strength to improve function( new goals) Goal 5:: Patient to improve LFES score by 5 -10 points to improve QOL and function Goal Progress: Progressing Plan Plan: D/C D/C Information d/c sentence: If there are questions or concerns regarding this patient's physical therapy, please feel free to call me at [phone]. Thank you for the referral of this patient. Sincerely, Prakash Ruiz, PT, Cert MDT, OCS Balance/Special Test Scores Balance/Special Test Scores CATSIB Score (Max score 120 seconds): 47 TUG Test Time Seconds: 32.1 Improvement % Improvement: 30
== END 2025-03-28 19:00 | disposition home or self-care (01) ==
LOC: PT 12:00
PROVIDERS: PCP Internal Medicine; Referring Provider Nurse Practitioner Family; Visit Provider Nurse Practitioner Family
DX: M54.2 Cervicalgia (principal)
CPT/HCPCS: 97035; 97110; 97140; 97162; 97166; 97530